=== PATIENT | female | born 1940 | race Caucasian/White ===

== ENCOUNTER → 2016-07-22 | Outpatient (CLI) | payer BC ==
[~2016-07-22] MED LIST: ALPR-412 PO; AMT/25 PO; AMX500 PO; ASPI81TA28 PO; ATOR10TA82 PO; BUTA1CAP17 PO; DICL50TA3 PO; FLUO40CA8 PO; FRS/40 PO; HYDR-5688 PO; KETO10TA PO; LISI-461 PO; OXYC-57 PO; POLY99.02 OP; POTA-327 PO
[2016-07-22 14:45] LABS: BASO % 0.3 %; BASO ABS # 0.03 K/uL (0-0.2); COMPLETE YES; EOS % 0.6 %; IG% 0.5 %; LYMPH % 18.8 %; LYMPH ABS # 1.96 K/uL (1.2-3.4); MEAN CELL VOLUME 92.6 fL (80-100); MEAN CORPUSCULAR HEMOGLOBIN 32.4 pg (25-34); MEAN PLATELET VOLUME 11.1 fL (7.4-10.4); MONO % 9.6 %; NEUT % 70.2 %; PLATELET COUNT 399 K/uL (130-400); RED BLOOD COUNT 4.32 M/uL (4.2-5.4); WHITE BLOOD COUNT 10.42 K/uL (4.8-10.8)
[2016-07-22 14:55] LABS: ALT/SGPT 34 U/L (12-78); BLOOD UREA NITROGEN 20 mg/dl (7-18); BUN/CREATININE RATIO 19.7 (10-20); CALCIUM 9.6 mg/dl (8.5-10.1); CARBON DIOXIDE 21 mmol/L (21-32); CHLORIDE 107 mmol/L (98-107); CREATININE 0.99 mg/dl (0.60-1.20); GLUCOSE 122 mg/dl (70-99); POTASSIUM 3.5 mmol/L (3.5-5.1); SODIUM 138 mmol/L (136-145)
[2016-07-22 14:57] LABS: ALKALINE PHOSPHATASE 80 U/L (45-117); AST/SGOT 17 U/L (15-37)
== END | disposition home or self-care (01) ==
LOC: C.LABSPEC 15:11
PROVIDERS: ATTEND Internal Medicine
DX: B34.9 Viral infection, unspecified (principal); R11.10 Vomiting, unspecified

== ENCOUNTER → 2016-09-02 | Outpatient (CLI) | payer BC ==
[2016-09-02 13:34] LABS: BASO % 0.5 %; BASO ABS # 0.04 K/uL (0-0.2); COMPLETE YES; EOS % 2.2 %; HEMATOCRIT 40.7 % (37-47); IG% 0.5 %; LYMPH % 17.3 %; MEAN CELL VOLUME 97.8 fL (80-100); MEAN CORPUSCULAR HEMOGLOBIN 30.8 pg (25-34); MEAN CORPUSCULAR HGB CONC 31.4 g/dl (32-36); MEAN PLATELET VOLUME 11.9 fL (7.4-10.4); MONO % 10.4 %; NEUT % 69.1 %; PLATELET COUNT 336 K/uL (130-400); RED BLOOD COUNT 4.16 M/uL (4.2-5.4); WHITE BLOOD COUNT 8.07 K/uL (4.8-10.8)
[2016-09-02 13:48] LABS: BLOOD UREA NITROGEN 14 mg/dl (7-18); BUN/CREATININE RATIO 14.7 (10-20); CARBON DIOXIDE 25 mmol/L (21-32); CHLORIDE 106 mmol/L (98-107); CHOLESTEROL 181 mg/dl (0-200); CREATININE 0.92 mg/dl (0.60-1.20); GLUCOSE 102 mg/dl (70-99); POTASSIUM 4.9 mmol/L (3.5-5.1); SODIUM 138 mmol/L (136-145); TRIGLYCERIDES 147 mg/dl (0-150); VERY LOW DENSITY LIPOPROT CALC 29 mg/dl
[2016-09-02 13:56] LABS: ESTIMATED AVERAGE GLUCOSE 123 mg/dl; HA1C FLAG Normal (Normal)
[2016-09-02 13:59] LABS: CHOLESTEROL/HDL RATIO 3.1; HDL CHOLESTEROL 58 mg/dl
== END | disposition home or self-care (01) ==
LOC: C.LABSPEC 12:20
PROVIDERS: ATTEND Internal Medicine
DX: I10 Essential (primary) hypertension (principal); E78.5 Hyperlipidemia, unspecified; R73.9 Hyperglycemia, unspecified; M75.122 Complete rotator cuff tear or rupture of left shoulder, not specified as traumatic

== ENCOUNTER → 2016-09-17 | Day surgery (SDC) | payer BC ==
[2016-09-03 10:13] VITALS: Ht 160 cm; Wt 100.0 kg
--- NOTE | 2016-09-04 09:37 | DIAGNOSTIC IMAGING REPORT ---
CHEST 2 VIEWS ROUTINE CLINICAL HISTORY: Preoperative chest COMPARISON STUDY: 08/02/2014 FINDINGS: The cardiac and sternal contours are normal. There is no focal pulmonary consolidation. There is no failure. There are no pleural effusions. There is a calcified right upper lobe granuloma. There is a prominent left cardiophrenic angle fat pad.[ IMPRESSION: No active disease in the chest. Electronically signed by: Adebayo Blanc M.D. 09/04/2016 9:35 AM Dictated Date/Time: 09/04/2016 9:35 AM
[~2016-09-17] VITALS: Ht 160 cm; Wt 100.0 kg
[~2016-09-17] MED LIST changes: -ALPR-412 PO; -AMT/25 PO; -AMX500 PO; +ATROPINE SULFATE 0.1 MG/ML 5ML SYR IV PRN; +BUPIVACAINE/EPINEPHRINE 0.25% 1:200,000 30 ML VIAL ONE; +CEFAZOLIN 2000 MG/60 ML D5W IV SCH; +EpHEDrine SULFATE INJ 50 MG/ML AMP IV PRN; +EpINEphrine INJ 1MG/ML AMP 1 MG/ML AMP ONE; +FENTANYL CITRATE INJ 50 MCG/1 ML 2 ML VIAL IV PRN; +FENTANYL CITRATE INJ 50 MCG/1 ML 2 ML VIAL ONE; +GLYCOPYRROLATE INJ 0.2 MG/ML VIAL ONE; -HYDR-5688 PO; +HYDROmorphone INJ 1 MG/ML SYR IV PRN; +LACTATED RINGER'S 1000ML 1,000 ML IV SCH; +LIDOCAINE HCL 2% 2 ML VIAL (20MG/ML) ONE; +MIDAZOLAM HCL 1 MG/ML 2ML VIAL ONE; +NEOSTIGMINE METHYLSULFATE 5 MG/5 ML SYR ONE; +ONDANSETRON INJ 2 MG/ML 2 ML VIAL IV PRN; +ONDANSETRON INJ 2 MG/ML 2 ML VIAL ONE; +OXYCODONE/ACETAMINOPHEN 5-325 TAB PO PRN; +PROPOFOL IV EMULSION 10 MG/ML 20 ML VIAL IV ONE; +ROCURONIUM BROMIDE 10 MG/ML 5 ML VIAL ONE; +ROPIVACAINE 0.5% 5 MG/ML 30 ML VIAL ONE; +SODIUM CHLORIDE 0.9% 1000ML 1,000 ML IV SCH
--- NOTE | 2016-09-17 07:55 | History & Physical Bridge - SC ---
H&P Re-Evaluation Bridge Note: I have examined the patient, reviewed the History & Physical and in the interval since the performance of the History & Physical I have noted the following changes of clinical significance: No changes noted
--- NOTE | 2016-09-17 11:46 | [facility] Post Operative Brief Note ---
Immediate Operative Summary Operative Date Sep 17, 2016. Pre-Operative Diagnosis Left Shoulder Full Thickness Rotator Cuff Tear Post-Operative Diagnosis Same Procedure(s) Performed Left Shoulder Arthroscopy, Medium Rotator Cuff Repair, Removal of Loose Body Surgeon Dr. Lund Legal Research Analyst Surgeon(s) Lissa Mckeon PA-C Estimated Blood Loss 5 ml Findings as above Specimens None Complication(s) None Disposition Recovery Room / PACU
--- NOTE | 2016-09-17 11:48 | Discharge Instructions-SurgCtr ---
Discharge Instructions Date of Service Sep 17, 2016. Visit Reason for Visit: Left Shoulder Full Thickness Rotator Cuff Tear Discharge Discharge Diagnosis / Problem: SAME ABOVE Discharge Goals Goal(s): Decrease discomfort, Improve function Medications Stopped Medications Name(s): Voltaran and ASA 81mg stopped 09/08 Restart Stopped Medication(s): MAY RESTART VOLTAREN WHEN DONE WITH TORADOL TAKE TORADOL EVERY 8 HOURS WITH FOOD UNTIL FINISHED AUGUST RESTART ASA 81MG 09/18/2016 Activity Recommendations Activity Limitations: as noted below Lifting Limitations: until after follow-up appointment Exercise/Sports Limitations: until after follow-up appointment Shower/Bathe: tomorrow Anesthesia . Post Anesthesia Instructions: If you have had General Anesthesia or IV Sedation: * Do not drive today. * Resume driving when surgeon permits. * Do not make important decisions or sign legal documents today. * Call surgeon for: 1. Temperature elevations greater than 101 degrees F. 2. Uncontrollable pain. 3. Excessive bleeding. 4. Persistent nausea and vomiting. 5. Medication intolerance (nausea, vomiting or rash). * For nausea and vomiting use only clear liquids such as: tea, soda, bouillon until nausea subsides, then gradually increase diet as tolerated. * If you have any concerns or questions, call your surgeon's office. If physician is unavailable and it is an emergency, call 911 or go to the nearest emergency room. . Instructions / Follow-Up Instructions / Follow-Up MEDICATIONS: * Resume previous medications unless instructed otherwise by your surgeon. * Always take pain medication on a full stomach or with food to avoid upset stomach. * Do not drink alcohol or drive while taking narcotics. * Ibuprofen or Tylenol may be taken if narcotic not needed. SPECIAL CARE INSTRUCTIONS: __ None _X_ Keep extremity elevated and iced x 48 hours; apply ice 20-30 minutes 8-10 times/day. May remove at night. __ Sling __24 hrs/day __ Remove at night _X_ Shoulder Immobilizer (MAY REMOVE AFTER 48 HOURS ONLY TO SHOWER AND FOR THERAPY) _X_ 24 hrs/day __ Remove at night _X_ Dressing __ Maintain until seen in office, may shower with plastic over site _X_ Remove dressings in 24-48 hours and then may shower _X_ Cover incisions with band-aids after showering __ Do not remove steri-strips Call physician if chills or temperature rises above 102 degrees or pain unrelieved by prescribed pain medications at . . Diet Recommendations Home Diet: no limitations Fluid Restriction: None Procedures Procedures Performed: Left Shoulder Arthroscopy, Medium Rotator Cuff Repair, Removal of Loose Body Pending Studies Studies pending at discharge: no Work Instructions Return To Work: after follow-up Lifting Limitations: NO LIFTING WITH LEFT ARM Medical Emergencies . Who to Call and When: Medical Emergencies: If at any time you feel your situation is an emergency, please call 911 immediately. . Non-Emergent Contact Non-Emergency issues call your: Primary Care Provider Call Non-Emergent contact if: you have a fever, temperature is above 101.5 . . "Provider Documentation" section prepared by Joseph Mckeon. .
[2016-09-17 11:58] VITALS: TEMP 36.6
--- NOTE | 2016-09-17 12:04 | OPERATIVE REPORT ---
DATE OF OPERATION: 09/17/2016 PREOPERATIVE DIAGNOSES: Severe external impingement, biceps tendinopathy and medium sized rotator cuff tear of the left shoulder with moderate glenohumeral arthritis and a very large loose body in the subcoracoid space. POSTOPERATIVE DIAGNOSIS: Same. PROCEDURE: Left shoulder diagnostic arthroscopy with removal of a large 30 mm x 15 mm loose body, extensive debridement, acromioplasty, medium sized degenerative rotator cuff repair and arthroscopic biceps tenodesis. SURGEON: Dr. Jcarlos Lund. STERILIZATION TECH: Logan Mckeon PA-C, whose assistance was necessary for positioning the arm and helping with instrumentation. ANESTHESIA: General with a left interscalene nerve block. COMPLICATIONS: None. CONDITION: Stable to PACU. INDICATIONS: Garrick is a pleasant 75-year-old female who has been complaining of chronic left shoulder pain. MRI and clinical examination were diagnostic for severe external impingement and a medium size cuff tear with some arthritis and a large loose body. After failing conservative treatment, she elected to undergo arthroscopy. DESCRIPTION OF PROCEDURE: On 09/17/2016, she arrived at [facility] for the above procedure. She was seen in the preoperative holding area and the operative extremity was identified and signed. She was given a preoperative antibiotic and a left interscalene nerve block. She was taken back to the operating room, laid on the table in supine position and put under general anesthesia. She was then put into the beachchair position. The left shoulder was prepped and draped in sterile fashion. Time-out was done and the patient and operative extremity was properly identified. A scope was introduced in the posterior portal. Diagnostic arthroscopy showed some grade 2 chondral changes within the glenoid and some grade 3 chondral changes on the humeral head. The biceps tendon was slightly frayed at the tristen. There was a tear of the entire supraspinatus, and infraspinatus, teres minor, and subscapularis were intact. An anterior portal was made, a shaver was used to do a debridement of the intraarticular structures and do a chondroplasty both the humeral head and the glenoid. The rotator interval was then opened up to the subcoracoid space and there was a large loose body identified. A large grasper was used to remove the loose body. It measured to be a 30 mm x 15 mm. The scope was then put into the subacromial space. A lateral portal was made. A shaver was used to do a complete subacromial and subdeltoid bursectomy. An ablator was used to tease the coracoacromial ligament off the undersurface of the acromion and a 5-0 austin was used to complete an acromioplasty of a very large Bigliani type 3 acromion. A shaver was used to remove any excess debris and attention was turned to the rotator cuff. It was a medium size cuff tear. An additional anterolateral portal was made and Arabella cannulas were placed in each of the lateral portals. The tuberosity was prepared with a ring curette and a microfracture. The rotator cuff was then fixed with an Arthrex SpeedBridge configuration using BioComposite SwiveLock suture anchors. This gave a nice knotless SpeedBridge repair. A single FiberLink was placed around the biceps tendon and it was tenodesed to the anterior lateral anchor. This gave an arthroscopic biceps tenodesis. Multiple pictures were taken of the final repair. The scope was placed back into the glenohumeral joint and the biceps tendon was arthroscopically tenotomized. The articular surface of the rotator cuff was examined and it was restored. Any additional debris was removed. The arthroscopic instruments were removed from the shoulder. Portal sites were closed with 3-0 nylon. She was then placed in a soft dressing and an abduction arm sling. She was then extubated, transferred to a litter and taken to the postanesthesia care unit in stable condition. She tolerated the procedure well. I attest to the content of the Intraoperative Record and any orders documented therein. Any exception s are noted below.
[2016-09-17 12:28] VITALS: BP 120/79; PULSE 82; O2SAT 95
--- NOTE | 2016-09-17 12:35 | Anesthesiology Progress Note ---
Anesthesia Post Op Note Date & Time Sep 17, 2016 at 12:35 Vital Signs Pain Intensity: 0 Vital Signs Past 12 Hours Date Time Temp Pulse Resp B/P (MAP) Pulse Ox O2 Delivery O2 Flow Rate FiO2 09/17/16 12:28 82 18 120/79 (93) 93 Room Air 09/17/16 11:58 36.6 18 126/69 (88) 92 Room Air 09/17/16 11:51 36.4 09/17/16 11:48 80 17 09/17/16 11:48 81 17 98 09/17/16 11:48 Room Air 09/17/16 11:47 133/73 (79) 09/17/16 11:43 82 14 09/17/16 11:43 82 14 90 09/17/16 11:41 140/85 (105) 09/17/16 11:38 84 16 09/17/16 11:38 84 16 98 09/17/16 11:36 137/74 (77) 09/17/16 11:33 81 19 99 09/17/16 11:33 81 19 09/17/16 11:32 132/87 (107) 09/17/16 11:28 85 20 09/17/16 11:28 85 20 99 09/17/16 11:27 149/71 (100) 09/17/16 11:23 88 20 09/17/16 11:23 20 09/17/16 11:22 144/70 (75) 09/17/16 11:20 155/72 (79) 09/17/16 11:18 36.4 90 16 155/72 98 Diffusion Mask 5 09/17/16 09:37 78 27 09/17/16 09:37 78 27 99 09/17/16 09:36 129/86 09/17/16 09:35 77 23 09/17/16 09:35 77 23 99 09/17/16 09:31 135/84 09/17/16 09:30 80 24 09/17/16 09:30 81 24 99 09/17/16 09:25 75 92 09/17/16 09:25 75 09/17/16 08:21 36.5 85 20 126/75 (92) 96 Room Air Notes Mental Status: alert / awake / arousable, participated in evaluation Pt Amnestic to Procedure: Yes Nausea / Vomiting: adequately controlled Pain: adequately controlled Airway Patency, RR, SpO2: stable & adequate BP & HR: stable & adequate Hydration State: stable & adequate Anesthetic Complications: no major complications apparent
== END | disposition home or self-care (01) ==
LOC: X.SURG 08:00
PROVIDERS: ATTEND Orthopaedic Surgery
DX: M25.812 Other specified joint disorders, left shoulder (principal); M75.102 Unspecified rotator cuff tear or rupture of left shoulder, not specified as traumatic; M19.012 Primary osteoarthritis, left shoulder; E78.00 Pure hypercholesterolemia, unspecified; Z79.899 Other long term (current) drug therapy

== ENCOUNTER → 2017-01-26 | Outpatient (CLI) | payer BC ==
[~2017-01-26] MED LIST changes: -ATOR10TA82 PO; +ATOR10TA88 PO; -ATROPINE SULFATE 0.1 MG/ML 5ML SYR IV PRN; -BUPIVACAINE/EPINEPHRINE 0.25% 1:200,000 30 ML VIAL ONE; -CEFAZOLIN 2000 MG/60 ML D5W IV SCH; -EpHEDrine SULFATE INJ 50 MG/ML AMP IV PRN; -EpINEphrine INJ 1MG/ML AMP 1 MG/ML AMP ONE; -FENTANYL CITRATE INJ 50 MCG/1 ML 2 ML VIAL IV PRN; -FENTANYL CITRATE INJ 50 MCG/1 ML 2 ML VIAL ONE; -GLYCOPYRROLATE INJ 0.2 MG/ML VIAL ONE; -HYDROmorphone INJ 1 MG/ML SYR IV PRN; -LACTATED RINGER'S 1000ML 1,000 ML IV SCH; -LIDOCAINE HCL 2% 2 ML VIAL (20MG/ML) ONE; -MIDAZOLAM HCL 1 MG/ML 2ML VIAL ONE; -NEOSTIGMINE METHYLSULFATE 5 MG/5 ML SYR ONE; -ONDANSETRON INJ 2 MG/ML 2 ML VIAL IV PRN; -ONDANSETRON INJ 2 MG/ML 2 ML VIAL ONE; -OXYCODONE/ACETAMINOPHEN 5-325 TAB PO PRN; -PROPOFOL IV EMULSION 10 MG/ML 20 ML VIAL IV ONE; -ROCURONIUM BROMIDE 10 MG/ML 5 ML VIAL ONE; -ROPIVACAINE 0.5% 5 MG/ML 30 ML VIAL ONE; -SODIUM CHLORIDE 0.9% 1000ML 1,000 ML IV SCH
--- NOTE | 2017-01-26 14:23 | MAMMOGRAPHY REPORT ---
BILATERAL DIGITAL SCREENING MAMMOGRAM WITH CAD: 01/26/2017 CLINICAL HISTORY: Routine screening. TECHNIQUE: Bilateral CC, MLO and XCCL views were obtained. Current study was also evaluated with a Computer Aided Detection (CAD) system. COMPARISON: Comparison is made to exams dated: 01/23/2016 mammogram, 01/21/2015 mammogram, 01/19/2014 m ammogram, 01/18/2013 mammogram, 01/14/2012 mammogram, and 01/12/2011 mammogram - [facility] enter. BREAST COMPOSITION: There are scattered areas of fibroglandular density in both breasts. FINDINGS: There are scattered bilateral benign rim calcifications and mild vascular calcifications in the breasts. No new suspicious mass, architectural distortion or cluster of microcalcifications is seen. IMPRESSION: ACR BI-RADS CATEGORY 1: NEGATIVE There is no mammographic evidence of malignancy. A 1 year screening mammogram is recommended. The pa tient will receive written notification of the results. Approximately 10% of breast cancers are not detected with mammography. A negative mammographic report should not delay biopsy if a clinically suggestive mass is present. Jeanie Romero M.D. ay/:01/26/2017 09:01:38 Glassie: Nu SILVA(Chely)(M), [facility] letter sent: Normal 1/2 BI-RADS Code: ACR BI-RADS Category 1: Negative
== END | disposition home or self-care (01) ==
LOC: C.MAMM 08:37
PROVIDERS: ATTEND Internal Medicine
DX: Z12.31 Encounter for screening mammogram for malignant neoplasm of breast (principal)

== ENCOUNTER → 2017-02-26 | Outpatient (CLI) | payer BC ==
[~2017-02-26] MED LIST changes: +ATOR10TA82 PO; -ATOR10TA88 PO
[2017-02-26 14:10] LABS: BLOOD UREA NITROGEN 12 mg/dl (7-18); BUN/CREATININE RATIO 12.2 (10-20); CALCIUM 9.7 mg/dl (8.5-10.1); CARBON DIOXIDE 27 mmol/L (21-32); CHLORIDE 105 mmol/L (98-107); CHOLESTEROL 167 mg/dl (0-200); CREATININE 0.96 mg/dl (0.60-1.20); GLUCOSE 104 mg/dl (70-99); POTASSIUM 4.3 mmol/L (3.5-5.1); SODIUM 137 mmol/L (136-145)
[2017-02-26 14:13] LABS: CHOLESTEROL/HDL RATIO 2.7; HDL CHOLESTEROL 61 mg/dl; TRIGLYCERIDES 151 mg/dl (0-150); VERY LOW DENSITY LIPOPROT CALC 30 mg/dl
[2017-02-26 14:29] LABS: ESTIMATED AVERAGE GLUCOSE 120 mg/dl; HA1C FLAG Normal (Normal)
== END | disposition home or self-care (01) ==
LOC: C.LABSPEC 12:41
PROVIDERS: ATTEND Internal Medicine
DX: Z00.00 Encounter for general adult medical examination without abnormal findings (principal); R73.9 Hyperglycemia, unspecified; E78.5 Hyperlipidemia, unspecified; I10 Essential (primary) hypertension

== ENCOUNTER → 2017-03-05 | Outpatient (CLI) | payer BC | LOC: C.LABSPEC 15:31 | PROVIDERS: ATTEND Internal Medicine | DX: Z12.11 Encounter for screening for malignant neoplasm of colon (principal) ==

== ENCOUNTER → 2017-08-27 | Outpatient (CLI) | payer BC ==
[~2017-08-27] MED LIST changes: -KETO10TA PO; -OXYC-57 PO
[2017-08-27 13:04] LABS: HEMOGLOBIN A1C 5.8 % (4.5-5.6)
[2017-08-27 13:21] LABS: BLOOD UREA NITROGEN 12 mg/dl (7-18); CALCIUM 9.1 mg/dl (8.5-10.1); CARBON DIOXIDE 25 mmol/L (21-32); CREATININE 0.99 mg/dl (0.60-1.20); GLUCOSE 95 mg/dl (70-99); POTASSIUM 3.9 mmol/L (3.5-5.1); SODIUM 138 mmol/L (136-145)
[2017-08-27 13:23] LABS: CHOLESTEROL 161 mg/dl (0-200); LDL CHOLESTEROL (DIRECT) 88 mg/dl
== END | disposition home or self-care (01) ==
LOC: C.LABSPEC 12:24
PROVIDERS: ATTEND Internal Medicine
DX: I10 Essential (primary) hypertension (principal); E78.5 Hyperlipidemia, unspecified; E11.65 Type 2 diabetes mellitus with hyperglycemia

== ENCOUNTER 2023-06-28 08:32 | Inpatient (IN) ==
[2023-06-28 09:02] LABS: Basophils # (auto) 0.05 K/uL (0.00-0.20); Basophils % (auto) 0.5 %; Eosinophils # (auto) 0.24 K/uL (0.00-0.50); Eosinophils % (auto) 2.5 %; Hemoglobin 11.5 g/dl (12.0-16.0); Immature Granulocytes # (auto) 0.05 K/uL (0.01-0.20); Immature Granulocytes % (auto) 0.5 %; Lymphocytes # (auto) 1.71 K/uL (1.20-3.40); Lymphocytes % (auto) 17.7 %; Mean Corpuscular Hemoglobin 29.9 pg (25.0-34.0); Mean Corpuscular Hgb Conc 32.9 g/dL (32.0-36.0); Mean Corpuscular Volume 90.9 fL (80.0-100.0); Mean Platelet Volume 11.9 fL (9.4-12.4); Monocytes % (auto) 11.4 %; Neutrophils # (auto) 6.49 K/uL (1.40-6.50); Neutrophils % (auto) 67.4 %; Platelet Count 290 K/uL (130-400); RDW Coefficient of Variation 13.4 % (11.5-14.5); RDW Standard Deviation 44.7 fL (36.4-46.3); Red Blood Count 3.85 M/uL (4.20-5.40); White Blood Count 9.64 K/ul (4.8-10.8)
[2023-06-28 09:17] LABS: Albumin Globulin Ratio 1.4 (0.9-2); Albumin Level 4.2 gm/dl (3.4-5.0); BUN Creatinine Ratio 22.1 (10-20); Bilirubin,Total 0.3 mg/dl (0.2-1.0); Calcium 9.9 mg/dl (8.6-10.3); Creatinine Clr Calc Pharmacy 45.1 ml/min; Est GFR (African American) 57.5 ml/min; Est GFR (Non-African American) 49.6 ml/min; Potassium 4.2 mmol/L (3.5-5.1); Total Protein 7.2 gm/dl (6.0-8.3)
[2023-06-28] MEDS: OPTIRAY 320 100ml IV ONE (09:56)
--- NOTE | 2023-06-28 10:07 | Emergency Department Note ---
Impression & Plan Acute lower GI bleeding, Diverticulitis ED Provider Note NAME: DEE WANG AGE: 82 SEX: Female INFORMANT: Patient ED PROVIDER(S): Jamar Mccullough MD CHIEF COMPLAINT: Rectal bleeding PLAN: Disposition: Admitted Outpatient prescription management: none Referral: None MEDICAL DECISION MAKING: Patient presented with acute rectal bleeding. He had a benign abdominal examination. He is mildly tachycardic. Rectal examination was grossly positive for blood and Hemoccult positive as well. IV was established. Blood work obtained. CT imaging ordered. Patient is doing well on reassessment. She does have a drop of 1 g on her hemoglobin. Patient's chemistry panel was unremarkable. Her CT imaging does show mild diverticulitis as well as diverticulosis. Discussed with ED pharmacist. Patient given IV Rocephin and Flagyl. Discussed treatment options and given the situation the patient would be best served by admission. Patient and family in agreement. Consultation was [facility] with [facility] Patient was evaluated in the ER and admitted for further management. Care/management discussed with: none Level of care consideration(s): After review of the information above and other included data, I feel the patient requires escalation of care to admission Triage Nursing notes: reviewed and agree them. Vital Signs: reviewed and remarkable for mild tachycardia Additional History obtained from: none Chronic Medical/Social Conditions affecting care: none Prior/ Outside/ External records reviewed: none Differential Diagnosis: Diverticulosis, AVM, coagulopathy, colitis, inflammatory bowel disease, malignancy, Elizabeth-Vuong tear, esophagitis, peptic ulcer disease, variceal bleed, gastritis, epistaxis, fissure, hemorrhoids, as well as other pathologies. Diagnostics, independently interpreted by me: ECG: Twelve-lead EKG reveals sinus tachycardia at 104 bpm. Low voltage QRS. Nonspecific ST wave abnormality. No ST elevation. Cardiac Monitoring: Cardiac monitoring ordered by me: The patient was placed on continuous cardiac monitoring and observed. It revealed a normal sinus rhythm at 98 beats per minute without ectopy or evidence of dysrhythmia. Medical decision rules: none Imaging studies: HPI: 82 year old Female arrives for evaluation of rectal bleeding. This started this and is a first-time episode. The patient also notes the following associated symptoms, none. The patient has taken no medication relieving factors. Current pain is rated as 0/10. No history of GI bleeding. Patient denies any rectal pain or discomfort. No recent travel or any unusual foods. Patient is on any blood thinners. Pt denies LOC, headache, fevers, chills, diaphoresis, visual changes, neck pain, chest pain, breathing difficulties, nausea, vomiting, abdominal pain, back pain, melena, urinary symptoms, numbness, weakness, lymphadenopathy, rash, or other complaints. . PAST MEDICAL HISTORY: See Below, interstitial lung disease PAST SURGICAL HISTORY: See Below, SOCIAL HISTORY: See Below, retired HOME MEDICATIONS: See Below ALLERGIES: See Below VITALS: See Below PHYSICAL EXAMINATION: GENERAL: Awake, alert, anxious-appearing, in no distress HENT: Normocephalic, atraumatic. Oropharynx unremarkable. EYES: Normal conjunctiva. Sclera non-icteric. NECK: Inspection normal. Non-tender. Supple. No nuchal rigidity. FROM. No masses. RESPIRATORY: Clear to auscultation. No wheezes. No rales. Normal respiratory effort. CARDIAC: Borderline tachycardic rate. Normal rhythm. No murmurs. No rubs. Extremities warm and well perfused. Pulses equal. No JVD. GI: Soft, non-distended. No tenderness to palpation. No rebound or guarding. No masses. RECTAL: Gross blood. No tenderness or signs of infection. Hemoccult positive. MUSCULOSKELETAL: Atraumatic. Chest examination reveals no tenderness. The back is symmetrical on inspection without obvious abnormality. There is no CVA tenderness to palpation. No joint edema. LOWER EXTREMITIES: Calves are equal size bilaterally and non-tender. No edema. No discoloration. NEURO: Normal sensorium. No sensory or motor deficits noted. SKIN: No rash or jaundice noted. PROCEDURES: none CRITICAL CARE: none OBSERVATION NOTE: none Past Med/Surg History Medical History (Updated 06/28/23 @ 16:30 by Jamar Mccullough MD) GERD (gastroesophageal reflux disease) Uterine fibroid Depression Migraine Hypertension Hyperlipidemia Spastic esophagus Surgical History S/P dilatation of esophageal stricture History of hysterectomy History of bilateral tubal ligation History of esophagogastroduodenoscopy (EGD) History of colonoscopy History of tooth extraction Hx of eye surgery RT EYE LASER History of cataract surgery RT/LEFT Bone spur RT/LEFT History of repair of rotator cuff LEFT History of carpal tunnel release RT History of total knee replacement RT History of arthroscopy RT History of total abdominal hysterectomy and bilateral salpingo-oophorectomy Family History Other Hypertension Denies family history of Tuberculosis Heart disease Allergies Emphysema of lung Lung disease Cancer Asthma Social History (Updated 03/26/23 @ 14:58 by Sheri Barraza LPN) Smoking Status: Former smoker Tobacco Type: Cigarettes Cigarettes Per Day: QUIT OVER 20 YEARS AGO; Smoking End Date: 1997; Second Hand Exposure: No; Do You Dip or Chew Tobacco: No; Hx Alcohol Use: No Hx Substance Use: No Preferred Language: Tanzanian Communication Ability: Effective Visual Impairment: No Limitations Beef Farmer Required: No Beliefs That Will Affect Care: None marital status: Current Living Situation: Spouse current occupational status: retired Other Information That Helps Us Care for You: No Feels Safe at Home: Yes Safety Concerns: Feels Safe At This Time Diet: low carbohydrate caffeine: Yes Dental Care, Regularly: No Physical Activity Frequency: Does not Exercise Seatbelt Use: always Assistive Devices: Denture - Upper and Denture - Lower Allergies Allergies Allergy/AdvReac Type Severity Reaction Status Date / Time tiotropium Allergy Severe Spirivia Unverified 06/28/23 11:04 [From Spiriva with Respimat, HandiHaler] pt hasn't had the handihaler metoclopramide Allergy Intermediate COULDN'T Verified 06/28/23 11:04 EAT PLASTIC AdvReac Mild IRRITATION Uncoded 06/28/23 11:04 ON CONTACT WITH OXYGEN APPLIED ON NOSE Spiriva AdvReac Itching Uncoded 06/17/23 09:13 Home Meds Home Medications Medication Instructions Recorded Confirmed aspirin 81 mg tablet,delayed 81 mg PO HS 02/16/18 06/28/23 release (Aspir-) omeprazole 20 mg capsule,delayed 20 mg PO QAM 06/28/23 06/28/23 release Previous Rx's Medication Instructions Recorded diclofenac potassium 50 mg tablet 50 mg PO BID #180 tabs 08/21/22 potassium chloride 10 mEq 10 meq PO BID #180 tabs 09/30/22 tablet,extended release atorvastatin 10 mg tablet 10 mg PO QPM #90 tabs 02/03/23 fluoxetine 40 mg capsule (Prozac) 40 mg PO QAM #90 caps 02/03/23 furosemide 40 mg tablet (Lasix) 40 mg PO QAM #90 tabs 02/03/23 lisinopril 10 mg tablet 10 mg PO QPM #90 tabs 02/03/23 albuterol sulfate 90 mcg/actuation 2 puff inhalation Q6H PRN 05/18/23 aerosol inhaler shortness of breath or wheezing #8.5 grams Results & Data (ED) Vital Signs Vital Signs - 24 hr 06/28/23 08:40 06/28/23 08:40 06/28/23 08:41 Temperature 36.8 C Temperature Source Oral Pulse Rate 110 H 107 H 107 H Pulse Rate from SpO2 Sensor 106 H Respiratory Rate 14 20 Blood Pressure 155/91 H Blood Pressure Mean 112 Pulse Oximetry 93 94 Oxygen Delivery Method Room Air Room Air Sepsis New/Unexplained Change in Mental Status No Sepsis Action Taken by Nursing No Action Required 06/28/23 08:43 06/28/23 09:00 06/28/23 09:00 Temperature Temperature Source Pulse Rate 102 H Pulse Rate from SpO2 Sensor 102 H Respiratory Rate 23 Blood Pressure 150/80 H Blood Pressure Mean 118 Pulse Oximetry 94 Oxygen Delivery Method Room Air Room Air Sepsis New/Unexplained Change in Mental Status Sepsis Action Taken by Nursing 06/28/23 09:30 06/28/23 10:00 06/28/23 10:03 Temperature Temperature Source Pulse Rate 102 H 105 H Pulse Rate from SpO2 Sensor 102 H Respiratory Rate 19 16 Blood Pressure 138/72 Blood Pressure Mean 102 Pulse Oximetry 95 Oxygen Delivery Method Room Air Sepsis New/Unexplained Change in Mental Status Sepsis Action Taken by Nursing 06/28/23 10:03 06/28/23 10:30 06/28/23 11:00 Temperature Temperature Source Pulse Rate 102 H 104 H Pulse Rate from SpO2 Sensor 101 H 103 H Respiratory Rate 14 26 H Blood Pressure 104/76 Blood Pressure Mean 85 Pulse Oximetry 91 92 Oxygen Delivery Method Sepsis New/Unexplained Change in Mental Status Sepsis Action Taken by Nursing 06/28/23 11:00 06/28/23 11:13 06/28/23 11:13 Temperature Temperature Source Pulse Rate 102 H 107 H Pulse Rate from SpO2 Sensor 101 H 107 H Respiratory Rate 19 16 Blood Pressure 136/86 Blood Pressure Mean 116 Pulse Oximetry 95 96 Oxygen Delivery Method Room Air Sepsis New/Unexplained Change in Mental Status Sepsis Action Taken by Nursing 06/28/23 11:30 Temperature Temperature Source Pulse Rate 100 H Pulse Rate from SpO2 Sensor 100 H Respiratory Rate 19 Blood Pressure Blood Pressure Mean Pulse Oximetry 94 Oxygen Delivery Method Sepsis New/Unexplained Change in Mental Status Sepsis Action Taken by Nursing Laboratory Data 06/28/23 12:21 06/28/23 08:14 Lab Results 06/28/23 06/28/23 06/28/23 Range/Units 08:14 08:40 08:54 WBC 9.64 (4.8-10.8) K/ul RBC 3.85 L (4.20-5.40) M/uL Hgb 11.5 L (12.0-16.0) g/dl Hct 35.0 L (37.0-47.0) % MCV 90.9 (80.0-100.0) fL MCH 29.9 (25.0-34.0) pg MCHC 32.9 (32.0-36.0) g/dL RDW Std Deviation 44.7 (36.4-46.3) fL RDW Coeff of Binh 13.4 (11.5-14.5) % Plt Count 290 (130-400) K/uL MPV 11.9 (9.4-12.4) fL Immature Gran % (Auto) 0.5 % Neut % (Auto) 67.4 % Lymph % (Auto) 17.7 % Evangeline % (Auto) 11.4 % Eos % (Auto) 2.5 % Baso % (Auto) 0.5 % Neut # (Auto) 6.49 (1.40-6.50) K/uL Lymph # (Auto) 1.71 (1.20-3.40) K/uL Evangeline # (Auto) 1.10 H (0.11-0.59) K/uL Eos # (Auto) 0.24 (0.00-0.50) K/uL Baso # (Auto) 0.05 (0.00-0.20) K/uL Immature Gran # (Auto) 0.05 (0.01-0.20) K/uL PT Cancelled INR Cancelled APTT Cancelled PTT Ratio Cancelled Sodium 137 (136-145) mmol/L Potassium 4.2 (3.5-5.1) mmol/L Chloride 106 (98-107) mmol/L Carbon Dioxide 24 (21-32) mmol/L Anion Gap 7 (3-11) BUN 23 (6-23) mg/dl Creatinine 1.04 (0.6-1.2) mg/dl Est Cr Clr Drug Dosing 45.1 ml/min Est GFR ( Amer) 57.5 ml/min Est GFR (Non-Af Amer) 49.6 ml/min BUN/Creatinine Ratio 22.1 H (10-20) Glucose 113 H (70-99(Fasting)) mg/dl Calcium 9.9 (8.6-10.3) mg/dl Total Bilirubin 0.3 (0.2-1.0) mg/dl AST 15 (13-39) U/L ALT 15 (7-52) U/L Alkaline Phosphatase 78 (34-104) U/L Total Protein 7.2 (6.0-8.3) gm/dl Albumin 4.2 (3.4-5.0) gm/dl Globulin 3.0 (2.5-4.0) gm/dl Albumin/Globulin Ratio 1.4 (0.9-2) POC Stool Occult Blood (Negative) Blood Type O Positive Antibody Screen NEGATIVE 06/28/23 06/28/23 Range/Units 09:34 09:41 WBC (4.8-10.8) K/ul RBC (4.20-5.40) M/uL Hgb (12.0-16.0) g/dl Hct (37.0-47.0) % MCV (80.0-100.0) fL MCH (25.0-34.0) pg MCHC (32.0-36.0) g/dL RDW Std Deviation (36.4-46.3) fL RDW Coeff of Binh (11.5-14.5) % Plt Count (130-400) K/uL MPV (9.4-12.4) fL Immature Gran % (Auto) % Neut % (Auto) % Lymph % (Auto) % Evangeline % (Auto) % Eos % (Auto) % Baso % (Auto) % Neut # (Auto) (1.40-6.50) K/uL Lymph # (Auto) (1.20-3.40) K/uL Evangeline # (Auto) (0.11-0.59) K/uL Eos # (Auto) (0.00-0.50) K/uL Baso # (Auto) (0.00-0.20) K/uL Immature Gran # (Auto) (0.01-0.20) K/uL PT 10.8 INR 1.0 APTT 27 PTT Ratio 1.0 Sodium (136-145) mmol/L Potassium (3.5-5.1) mmol/L Chloride (98-107) mmol/L Carbon Dioxide (21-32) mmol/L Anion Gap (3-11) BUN (6-23) mg/dl Creatinine (0.6-1.2) mg/dl Est Cr Clr Drug Dosing ml/min Est GFR ( Amer) ml/min Est GFR (Non-Af Amer) ml/min BUN/Creatinine Ratio (10-20) Glucose (70-99(Fasting)) mg/dl Calcium (8.6-10.3) mg/dl Total Bilirubin (0.2-1.0) mg/dl AST (13-39) U/L ALT (7-52) U/L Alkaline Phosphatase (34-104) U/L Total Protein (6.0-8.3) gm/dl Albumin (3.4-5.0) gm/dl Globulin (2.5-4.0) gm/dl Albumin/Globulin Ratio (0.9-2) POC Stool Occult Blood Positive A (Negative) Blood Type Antibody Screen Administered Medications Parenteral Electrolytes (Plasma-Lyte A Ph 7.4) 1,000 mls @ 125 mls/hr IV .Q8H [facility] Stop: 06/29/23 20:14 Last Admin: 06/28/23 13:11 Dose: 125 mls/hr Documented By: JAZZMINE Discontinued Medications Ceftriaxone Sodium (Rocephin) 2,000 mg in 50 mls @ 100 mls/hr IV NOW STA Stop: 06/28/23 11:45 Last Infusion: 06/28/23 12:08 Dose: Infused Documented By: Admin: 06/28/23 11:38 Dose: 100 mls/hr Documented By: TAVO Metronidazole (Flagyl) 500 mg in 100 mls @ 100 mls/hr IV NOW STA; Protocol Stop: 06/28/23 12:15 Last Infusion: 06/28/23 12:38 Dose: Infused Documented By: Admin: 06/28/23 11:38 Dose: 100 mls/hr Documented By: TAVO Ioversol (Optiray 320 100ml) 94 ml IV ONCE ONE Stop: 06/28/23 10:01 Last Admin: 06/28/23 09:56 Dose: 94 ml Documented By: BRBart Imaging Data Radiologist's Impression: Abdomen/Pelvis CT 06/28/23 09:[address] WITH IV CONTRAST CT DOSE: 1380.75 mGy.cm HISTORY: Acute lower abdominal pain with GI bleed acute lower gi bleeding TECHNIQUE: Multiaxial CT images of the abdomen and pelvis were performed following the IV administration of 94 cc of Optiray, A dose lowering technique was utilized adhering to the principles of ALARA. COMPARISON STUDY: 11/02/2007 FINDINGS: Mild cardiomegaly with mitral annular and coronary artery calcifications. Bibasilar atelectasis versus scarring. No free air. Calcified granulomata of the spleen. Unremarkable pancreas and adrenal glands. Hyperdense foci within the gallbladder neck suggestive of cholelithiasis. No CT evidence of acute cholecystitis. Unremarkable liver. Patency of the hepatic and portal veins. Possible punctate calculi of the kidneys. No ureteral calculi or hydronephrosis. Exophytic hypodense 2.2 cm lesion of the interpolar right kidney with Hounsfield unit of 15 suggestive of a probable cyst. Partial distention of the urinary bladder. Hysterectomy. Atherosclerosis of the aorta and branch vessels. No lymphadenopathy. Nonspecific mild inflammatory stranding within the mesenteric root is similar to prior suggestive of a chronic mesentery does. Mild nonspecific distal esophageal wall thickening. Colonic diverticulosis. Minimal adjacent inflammatory stranding adjacent to the proximal sigmoid. No fluid collections. Normal appendix. Unremarkable soft tissues. Degenerative changes of the spine, pelvis and hips. IMPRESSION: 1. Colonic diverticulosis with findings suspicious for mild acute sigmoid diverticulitis. 2. No bowel obstruction, pneumoperitoneum or fluid collection. 3. Cholelithiasis. 4. Additional findings as above. ACT 112: Negative or not required by law. The above report was generated using voice recognition software. It may contain grammatical, syntax or spelling errors. Electronically signed by: Chi Schwartz M.D. 06/28/2023 10:37 AM Discharge Plan Visit Data Chief Complaint: Rectal Bleed ED Provider: Jamar Mccullough Discharge Problem: Acute lower GI bleeding, Diverticulitis Patient Disposition: Admitted As Inpatient Discharge Instructions Interventions: ED Discharge Assessment Last Done: 06/28/23 13:33
[2023-06-28 10:30] LABS: Partial Thromboplastin Time 27 Seconds (21-31); Prothrombin Time 10.8 Seconds (9.0-12.0)
--- NOTE | 2023-06-28 10:39 | CT Scan Report ---
ABDOMEN AND PELVIS CT WITH IV CONTRAST CT DOSE: 1380.75 mGy.cm HISTORY: Acute lower abdominal pain with GI bleed acute lower gi bleeding TECHNIQUE: Multiaxial CT images of the abdomen and pelvis were performed following the IV administrat ion of 94 cc of Optiray, A dose lowering technique was utilized adhering to the principles of ALARA. COMPARISON STUDY: 11/02/2007 FINDINGS: Mild cardiomegaly with mitral annular and coronary artery calcifications. Bibasilar atelect asis versus scarring. No free air. Calcified granulomata of the spleen. Unremarkable pancreas and adr enal glands. Hyperdense foci within the gallbladder neck suggestive of cholelithiasis. No CT evidence of acute cholecystitis. Unremarkable liver. Patency of the hepatic and portal veins. Possible punctate calculi of the kidneys. No ureteral calculi or hydronephrosis. Exophytic hypodense 2.2 cm lesion of the interpolar right kidney with Hounsfield unit of 15 suggestive of a probable cyst . Partial distention of the urinary bladder. Hysterectomy. Atherosclerosis of the aorta and branch ve ssels. No lymphadenopathy. Nonspecific mild inflammatory stranding within the mesenteric root is similar to prior suggestive of a chronic mesentery does. Mild nonspecific distal esophageal wall thickening. Colonic diverticulosis. Minimal adjacent inflammatory stranding adjacent to the proximal sigmoid. No fluid collections. Norm al appendix. Unremarkable soft tissues. Degenerative changes of the spine, pelvis and hips. IMPRESSION: 1. Colonic diverticulosis with findings suspicious for mild acute sigmoid diverticulitis. 2. No bowel obstruction, pneumoperitoneum or fluid collection. 3. Cholelithiasis. 4. Additional findings as above. ACT 112: Negative or not required by law. The above report was generated using voice recognition software. It may contain grammatical, syntax o r spelling errors. Electronically signed by: Chi Schwartz M.D. 06/28/2023 10:37 AM
--- NOTE | 2023-06-28 11:32 | History & Physical Report ---
Date of Service June 28, 2023 Assessment & Plan (1) Sigmoid diverticulitis: Plan: BRB in rectum x 1 episode on 06/27 Hemoccult + on arrival No leukocytosis; afebrile No hx of diverticulitis or GI issues, per patient Hgb 11.5 and HCT 35.0 Trend H&H q4h x 4 Blood informed consent obtained, however will hold off on ordering pRBCs at this time Patient notes she does have a history of a blood transfusion in 1984 after her hysterectomy Patient is unsure when her last colonoscopy was, but believes it was in her 60s (~20y ago) A/P CT on arrival showed findings suspicious for mild acute sigmoid diverticulitis; also, did note mild nonspecific distal wall thickening BUN/creatinine ratio is mildly elevated at 22.1, clinically low suspicion for upper GI bleed Keep n.p.o. for now IVF resuscitation with Plasma-Lyte at 125mL/hr x 4 Rocephin q24h and metronidazole q8h Hold aspirin the evening of 06/27 and restart pending labs Hold diclofenac potassium tablets Acetaminophen as needed for pain control; patient denies any pain at time of admission Gastroenterology consulted A.m. CBC, BMP, Mag (2) GERD (gastroesophageal reflux disease): Plan: Omeprazole --> Protonix 20mg IV QAM (3) Depression: Plan: Continue fluoxetine (4) HLD (hyperlipidemia): Plan: Continue atorvastatin (5) Leg swelling: Plan: Renal function okay at time of admission Will hold Lasix, potassium supplementation while on fluids Plan [facility] Keep n.p.o. for now, advance diet as tolerated pending H&Hs VTE PPx: SCDs (will hold chemical DVT PPx in setting of acute rectal bleed) History of Present Illness Chief Complaint: Rectal bleed Primary Care Provider: Raheem Garibay DO Mariselaminhalexia is a pleasant 82-year-old female with PMH of ILD, HLD, CKD, and depression. She presented via BLS for bright red blood in stool x 1 episode the morning of 06/27. She denies past medical history of rectal bleeds, GI bleeds, diverticulitis, or GI issues. Patient notes that there were no clots in her stool this morning, and it was just 1 episode of bright red blood that was fully formed. She reports it looked like it does when she "eats beets". Besides that, she has been having normal bowel movements this past week; no melena. She denies recent NSAID use, but notes that she does take diclofenac potassium tablets twice daily for her ongoing shoulder pain. Patient also takes aspirin nightly, with last taken the evening of 06/26; no other blood thinner use. Patient denies any recent injuries or trauma to the pelvis or abdomen, but does note she fell around 6 weeks ago while sitting up from her recliner; no head strike; she does not use a walker or cane at baseline. Patient reports she did not take her regular morning medications today. She does note she had a recent change in medication when she stopped taking Spiriva on May, as it was causing dizziness and constipation; she aslo notes she has been taking a stool softener for her constipation. Patient is mildly tachycardic at 100 bpm at time of admission; vitals otherwise stable. ED course: Rocephin 2000 mg IV Flagyl 500 mg IV ROS: Patient endorses nightsweats / hot flashes x 2 nights again, dizziness and lightheadedness (resolved), and BRB in rectum x 1. Patient denies fever, chills, LEPE, chest pain, chest palpitations, SOB, cough, pleuritic CP, abdominal pain, N/V/D, urinary s/s, burning with urination, blood in the urine, dark/tarry stool, saddle anesthesia, or numbness/tingling in the arms or legs. Allergies Allergy/AdvReac Type Severity Reaction Status Date / Time tiotropium Allergy Severe Spirivia Unverified 06/28/23 11:04 [From Spiriva with Respimat, HandiHaler] pt hasn't had the handihaler metoclopramide Allergy Intermediate COULDN'T Verified 06/28/23 11:04 EAT PLASTIC AdvReac Mild IRRITATION Uncoded 06/28/23 11:04 ON CONTACT WITH OXYGEN APPLIED ON NOSE Spiriva AdvReac Itching Uncoded 06/17/23 09:13 Home Medications Medication Instructions Recorded Confirmed Type aspirin 81 mg tablet,delayed 81 mg PO HS 02/16/18 06/28/23 History release (Aspir-) diclofenac potassium 50 mg tablet 50 mg PO BID #180 tabs 08/21/22 06/28/23 Rx potassium chloride 10 mEq 10 meq PO BID #180 tabs 09/30/22 06/28/23 Rx tablet,extended release atorvastatin 10 mg tablet 10 mg PO QPM #90 tabs 02/03/23 06/28/23 Rx fluoxetine 40 mg capsule (Prozac) 40 mg PO QAM #90 caps 02/03/23 06/28/23 Rx furosemide 40 mg tablet (Lasix) 40 mg PO QAM #90 tabs 02/03/23 06/28/23 Rx lisinopril 10 mg tablet 10 mg PO QPM #90 tabs 02/03/23 06/28/23 Rx albuterol sulfate 90 mcg/actuation 2 puff inhalation Q6H PRN 05/18/23 06/28/23 Rx aerosol inhaler shortness of breath or wheezing #8.5 grams omeprazole 20 mg capsule,delayed 20 mg PO QAM 06/28/23 06/28/23 History release Past Med/Surg History Medical History (Updated 06/28/23 @ 12:16 by Mushtaq Plasencia PA-C) GERD (gastroesophageal reflux disease) Uterine fibroid Depression Migraine Hypertension Hyperlipidemia Spastic esophagus Surgical History S/P dilatation of esophageal stricture History of hysterectomy History of bilateral tubal ligation History of esophagogastroduodenoscopy (EGD) History of colonoscopy History of tooth extraction Hx of eye surgery RT EYE LASER History of cataract surgery RT/LEFT Bone spur RT/LEFT History of repair of rotator cuff LEFT History of carpal tunnel release RT History of total knee replacement RT History of arthroscopy RT History of total abdominal hysterectomy and bilateral salpingo-oophorectomy Family History Other Hypertension Denies family history of Tuberculosis Heart disease Allergies Emphysema of lung Lung disease Cancer Asthma Social History (Updated 03/26/23 @ 14:58 by Sheri Barraza LPN) Smoking Status: Former smoker Tobacco Type: Cigarettes Cigarettes Per Day: QUIT OVER 20 YEARS AGO; Second Hand Exposure: No; Do You Dip or Chew Tobacco: No; Hx Alcohol Use: Yes Alcohol type: beer Hx Substance Use: No Preferred Language: [place] Communication Ability: Effective Visual Impairment: No Limitations Insecticide Expert Required: No Beliefs That Will Affect Care: None marital status: Current Living Situation: Spouse current occupational status: retired Feels Safe at Home: Yes Diet: low carbohydrate caffeine: Yes Dental Care, Regularly: No Physical Activity Frequency: Does not Exercise Seatbelt Use: always Assistive Devices: Denture - Upper and Denture - Lower Review of Systems Review of Systems: See HPI above Physical Exam Physical Exam: General: no acute distress; pleasant affect; non-toxic appearing; well- nourished; cooperative HEENT: normocephalic, atraumatic; no scleral icterus; PERRLA; moist mucus membrane; vision and hearing grossly intact Neck: supple; no lymphadenopathy; trachea midline Skin: warm, dry without signs of tenting; no cyanosis; no rashes, bruising, lesions, or erythema noted CV: chest wall NTP; RRR; S1/S2 normal; no murmurs/rubs/gallops; pulses intact and symmetric at radial, DP, and PT Lungs: no acute respiratory distress; symmetrical chest wall expansion; clear breath sounds across all lung mcmahon w/o adventitious sounds; no wheezing ABD: Soft, NTP; LLQ NTP; BS present; no rebound/guarding; no ascites; moderate distention secondary to body habitus; no signs of bruising, rashes, or active bleeding on abdomen MSK: no tics or fasciculations; no edema noted in the LEs b/l, nonerythematous Neuro: A&Ox3; normal mood and affect; fluent speech; no focal deficits; sensation grossly intact in the LEs b/l Results & Data Results & Data Vital Signs (Past 12 Hours) Vital Signs Temp Pulse Resp BP Pulse Ox O2 Del Method 06/28/23 11:00 102 H 19 95 Room Air 06/28/23 11:00 104/76 06/28/23 10:30 104 H 26 H 92 06/28/23 10:03 102 H 14 91 06/28/23 10:03 138/72 06/28/23 10:00 105 H 16 06/28/23 09:30 102 H 19 95 Room Air 06/28/23 09:00 150/80 H 06/28/23 09:00 102 H 23 94 Room Air 06/28/23 08:43 Room Air 06/28/23 08:41 107 H 06/28/23 08:40 107 H 20 94 Room Air 06/28/23 08:40 36.8 C 110 H 14 155/91 H 93 Room Air Laboratory Results Abnormal lab results 06/28/23 06/28/23 06/28/23 Range/Units 08:14 08:40 09:41 RBC 3.85 L (4.20-5.40) M/uL Hgb 11.5 L (12.0-16.0) g/dl Hct 35.0 L (37.0-47.0) % [place] # (Auto) 1.10 H (0.11-0.59) K/uL BUN/Creatinine Ratio 22.1 H (10-20) Glucose 113 H (70-99(Fasting)) mg/dl POC Stool Occult Blood Positive A (Negative) Diagnostic Findings Abdomen/Pelvis CT 06/28/23 09:[address] WITH IV CONTRAST CT DOSE: 1380.75 mGy.cm HISTORY: Acute lower abdominal pain with GI bleed acute lower gi bleeding TECHNIQUE: Multiaxial CT images of the abdomen and pelvis were performed following the IV administration of 94 cc of Optiray, A dose lowering technique was utilized adhering to the principles of ALARA. COMPARISON STUDY: 11/02/2007 FINDINGS: Mild cardiomegaly with mitral annular and coronary artery calcifications. Bibasilar atelectasis versus scarring. No free air. Calcified granulomata of the spleen. Unremarkable pancreas and adrenal glands. Hyperdense foci within the gallbladder neck suggestive of cholelithiasis. No CT evidence of acute cholecystitis. Unremarkable liver. Patency of the hepatic and portal veins. Possible punctate calculi of the kidneys. No ureteral calculi or hydronephrosis. Exophytic hypodense 2.2 cm lesion of the interpolar right kidney with Hounsfield unit of 15 suggestive of a probable cyst. Partial distention of the urinary bladder. Hysterectomy. Atherosclerosis of the aorta and branch vessels. No lymphadenopathy. Nonspecific mild inflammatory stranding within the mesenteric root is similar to prior suggestive of a chronic mesentery does. Mild nonspecific distal esophageal wall thickening. Colonic diverticulosis. Minimal adjacent inflammatory stranding adjacent to the proximal sigmoid. No fluid collections. Normal appendix. Unremarkable soft tissues. Degenerative changes of the spine, pelvis and hips. IMPRESSION: 1. Colonic diverticulosis with findings suspicious for mild acute sigmoid diverticulitis. 2. No bowel obstruction, pneumoperitoneum or fluid collection. 3. Cholelithiasis. 4. Additional findings as above. ACT 112: Negative or not required by law. The above report was generated using voice recognition software. It may contain grammatical, syntax or spelling errors. Electronically signed by: Chi Schwartz M.D. 06/28/2023 10:37 AM Code Status & VTE Plan Code Status DNR/DNI VTE Prophylaxis Plan VTE Prophylaxis will be ordered: Yes Supervising Physician Co-Signing Physician Notes PA Supervision Note: I personally saw and examined the patient. I verified all maravilla points and agree with LOAN Plasencia with the following exceptions and/or additions: S-patient presents with a large amount of bright red blood per rectum mixed with stool x 1 this morning. Denies any abdominal pains or nausea. Currently feeling well. Has never had anything like this before and last colonoscopy was 20+ years ago. She does take aspirin and diclofenac. HPI, past medical history, and ROS otherwise as above CBC, coags, CMP, Hemoccult stool all reviewed O- Vitals reviewed Gen: AAOx3, NAD HEENT: Anicteric sclerae, EOMI CV: RRR no mgr nl S1S2 Pulm: CTAB no wcr Abd: +BS soft NT ND no masses or hernias Ext: No edema, 2+ DP pulses Skin: No rashes, warm/dry Neuro: Full strength throughout A/D-34-x[age]-old female here with bright red blood per rectum, likely lower GI bleeding possibly from acute diverticulitis/diverticular bleed. Hold blood thinners, keep n.p.o. for bowel rest, give IV fluids Antibiotics for diverticulitis Trend serial CBC, transfuse if becomes hemodynamically unstable and continues to bleed or hemoglobin less than 7 Will need colonoscopy in 6 to 8 weeks GI consulted PG Care Time/CCT Total # of Minutes Spent Total Time Spent with Patient: Total time spent is greater than 50% in coordination of care (as documented) at patient's floor/unit and/or counseling patient: Coding [place] [address] INT INP/OBS CARE 1/40MIN Patient Type Established Medical Decision Making Low Complexity Diagnoses Sigmoid diverticulitis K57.32 GERD (gastroesophageal reflux disease) K21.9 Depression F32.9 HLD (hyperlipidemia) E78.5 Leg swelling M79.89
[2023-06-28] MEDS: metroNIDAZOLE 500 MG/100 ML BAG IV STA (11:38)
[2023-06-28] MEDS: cefTRIAXone SODIUM 2,000 MG/50 ML BAG IV STA (11:38)
[2023-06-28] MEDS: PLASMA-LYTE A 1,000 ML IV SCH (13:11)
[2023-06-28] MEDS ORDERED: ONDANSETRON INJ 2 MG/ML 2 ML VIAL IV PRN (14:36)
[2023-06-28] MEDS ORDERED: ACETAMINOPHEN 325 MG TAB PO PRN (14:36)
[2023-06-28] MEDS ORDERED: ALBUTEROL HFA 8 GM INHALER INH PRN (14:36)
[2023-06-28 16:55] LABS: Hematocrit (blood only) 32.5 % (37.0-47.0); Hemoglobin 10.9 g/dl (12.0-16.0)
[2023-06-28] MEDS: metroNIDAZOLE 500 MG/100 ML BAG IV SCH (18:20)
[2023-06-28] MEDS: ATORVASTATIN 10 MG TAB PO SCH (20:51)
[2023-06-28] MEDS: lisinopril 10 MG TAB PO SCH (20:51)
[2023-06-28 20:54] LABS: Hematocrit (blood only) 33.1 % (37.0-47.0); Hemoglobin 10.9 g/dl (12.0-16.0)
--- NOTE | 2023-06-29 05:59 | Electrocardiogram Report ---
Test Reason : Blood Pressure : / mmHG Vent. Rate : 104 BPM Atrial Rate : 104 BPM P-R Int : 156 ms QRS Dur : 074 ms QT Int : 370 ms P-R-T Axes : 070 -13 007 degrees QTc Int : 486 ms Poor data quality, interpretation may be adversely affected Sinus tachycardia Low voltage QRS Cannot rule out Anterior infarct , age undetermined Nonspecific T wave abnormality Abnormal ECG When compared with ECG of 04-SEP-2016 09:38, Minimal criteria for Anterior infarct are now Present Nonspecific T wave abnormality now evident in Inferior leads Confirmed by Alonzo Raymond ([id number]) on 06/29/2023 5:58:52 AM Referred By: REFERRED SELF Confirmed By:Alonzo Raymond
[2023-06-29] MEDS: FLUoxetine HCL 20 MG CAP PO SCH (07:08)
[2023-06-29 08:48] LABS: Basophils # (auto) 0.05 K/uL (0.00-0.20); Basophils % (auto) 0.6 %; Eosinophils # (auto) 0.18 K/uL (0.00-0.50); Eosinophils % (auto) 2.3 %; Hematocrit (blood only) 30.1 % (37.0-47.0); Hemoglobin 9.8 g/dl (12.0-16.0); Immature Granulocytes # (auto) 0.03 K/uL (0.01-0.20); Immature Granulocytes % (auto) 0.4 %; Lymphocytes # (auto) 1.37 K/uL (1.20-3.40); Lymphocytes % (auto) 17.3 %; Mean Corpuscular Hemoglobin 29.9 pg (25.0-34.0); Mean Corpuscular Hgb Conc 32.6 g/dL (32.0-36.0); Mean Corpuscular Volume 91.8 fL (80.0-100.0); Mean Platelet Volume 11.8 fL (9.4-12.4); Monocytes # (auto) 0.94 K/uL (0.11-0.59); Monocytes % (auto) 11.9 %; Neutrophils # (auto) 5.34 K/uL (1.40-6.50); Neutrophils % (auto) 67.5 %; Platelet Count 261 K/uL (130-400); RDW Coefficient of Variation 13.4 % (11.5-14.5); Red Blood Count 3.28 M/uL (4.20-5.40); White Blood Count 7.91 K/ul (4.8-10.8)
[2023-06-29 09:12] LABS: BUN Creatinine Ratio 22.5 (10-20); Calcium 9.2 mg/dl (8.6-10.3); Creatinine Clr Calc Pharmacy 58.6 ml/min; Est GFR (Non-African American) 68.2 ml/min; Magnesium 2.2 mg/dl (1.7-2.4); Potassium 4.2 mmol/L (3.5-5.1)
[2023-06-29] MEDS: cefTRIAXone SODIUM 2,000 MG in DEXTROSE 5 % MINI-B 50 ML IV SCH (10:50)
[2023-06-29] MEDS: PANTOprazole 40 MG in SYRINGE DAILY IV SCH (10:50)
[2023-06-29] MEDS ORDERED: PANTOprazole 20 MG in SYRINGE 0 ML IV SCH (11:00)
--- NOTE | 2023-06-29 11:48 | Hospitalist Progress Note ---
Date of Service June 29, 2023 Assessment & Plan (1) Sigmoid diverticulitis: Plan: BRB in rectum x 1 episode on 06/27 prior to admission, Hemoccult + on arrival No leukocytosis; afebrile, no abdominal pain. No prior hx of diverticulitis or GI issues, per patient, last colonoscopy 20+ years ago Hgb 11.5 on admission (baseline 12.5) and now down to 9.8, some from blood loss, some hemodilutional CT A/P showed findings suspicious for mild acute sigmoid diverticulitis; also, did note mild nonspecific distal esophageal wall thickening BUN/creatinine ratio is mildly elevated at 22.1, clinically low suspicion for upper GI bleed Only scant amount of BRBPR today, hemodynamically stable Most likely diverticular bleed associated with acute diverticulitis vs internal hemorrhoid bleed, less likely tumor or AVM Awaiting GI consult but most likely no scopes here Keep n.p.o. for now but will advance to clears later if ok with GI Continue IVFs but reduce rate to 70mL/hr for maintenance Continue Rocephin q24h and metronidazole q8h Continue to hold aspirin and diclofenac Check CBC today at noon, again in the AM if remains stable Transfuse as needed--> blood consent on chart Needs colonoscopy in 6 weeks (2) Acute lower GI bleeding: Plan: as above (3) GERD (gastroesophageal reflux disease): Plan: has a h/o esophageal stenosis on EGD from 2018 that required dilation continue PPI IV for now (4) Depression: Plan: Continue fluoxetine (5) HLD (hyperlipidemia): Plan: Continue atorvastatin (6) Leg swelling: Plan: Renal function okay at time of admission Will hold Lasix, potassium supplementation while on fluids Plan Disposition: continued stay MedSurg DNR/DNI VTE PPx: SCDs (will hold chemical DVT PPx in setting of acute rectal bleed) Admission and Anticipated Discharge Date Admission Date: June 28, 2023 Subjective Had only a few "specks" of dark blood per rectum overnight and then this AM after urinating, wiped her bottom and had some red blood on the TP. Otherwise no BM and no large amounts of BRBPR. Denies abdominal pain, no nausea. No CP, SOB. Physical Exam Constitutional: WD/WN, vitals as above Neck: trachea midline, no thyromegaly Respiratory: normal respiratory effort, lungs clear to auscultation Cardiovascular: RRR, no murmur, no edema Chest (Breasts): Chest: normal inspection of chest Gastrointestinal (Abdomen): normal bowel sounds, soft, nontender, no hepatosplenomegaly Musculoskeletal: Extremities: extremities normal to inspection; no cyanosis and no clubbing Skin: no rashes, warm and dry Neurologic: moves all extremities and awake; no focal motor deficits Psychiatric: A+Ox3, euthymic affect Lymphatic: no lymphedema Results & Data Results & Data Vital Signs (Past 12 Hours) Vital Signs Temp Pulse Resp BP Pulse Ox O2 Del Method 06/29/23 07:39 Room Air 06/29/23 07:00 36.5 C 93 H 14 121/74 90 Room Air Laboratory Results CBC, BMP, magnesium reviewed PG Care Time/CCT Total # of Minutes Spent Total Time Spent with Patient: Total time spent is greater than 50% in coordination of care (as documented) at patient's floor/unit and/or counseling patient: Coding Level of Care Code 40177 SUB INP/OBS CARE 2/35MIN Diagnoses Sigmoid diverticulitis K57.32 Acute lower GI bleeding K92.2 GERD (gastroesophageal reflux disease) K21.9 Depression F32.9 HLD (hyperlipidemia) E78.5 Leg swelling M79.89
[2023-06-29 12:14] LABS: Hematocrit (blood only) 29.7 % (37.0-47.0); Hemoglobin 9.6 g/dl (12.0-16.0); Mean Corpuscular Hemoglobin 29.9 pg (25.0-34.0); Mean Corpuscular Hgb Conc 32.3 g/dL (32.0-36.0); Mean Corpuscular Volume 92.5 fL (80.0-100.0); Mean Platelet Volume 11.6 fL (9.4-12.4); Platelet Count 244 K/uL (130-400); RDW Coefficient of Variation 13.4 % (11.5-14.5); RDW Standard Deviation 45.7 fL (36.4-46.3); Red Blood Count 3.21 M/uL (4.20-5.40); White Blood Count 7.33 K/ul (4.8-10.8)
--- NOTE | 2023-06-29 16:53 | Gastrointestinal Consultation ---
Date of Consultation June 29, 2023 Assessment & Plan (1) Diverticulitis: She has diverticulitis by CT but not by symptomatology. The description that she gives for the bleeding suggests bleeding of an anorectal source. It does not suggest diverticular bleeding. However, her description also does not justify a 2 gm fall in hemoglobin. I think for now we observe and let her go once bleeding stops and/or hemoglobin stabilizes. I still can't do colonoscopy for four to six weeks unless it needs to be done for bleeding. Will follow History of Present Illness Reason for Consultation: diverticulitis Attending Physician: Abbie Naranjo MD History of Present Illness 82 year old female who presented to the hospital with bleeding. In ER Ct was done and showed mild diverticulitis. She is on antibiotics and really feels well. However she is still bleeding. She says the blood initially was on the toilet tissue and in the water but her stool looked normal. That has continued through her time at the hospital. She will have usually three bowel movements per day. There is no urgency with the bleeding. There is no pain. Her hemoglobin has dropped from >11 to 9.6. She has not been having any GI problems up to this admission. It has been a long time since her last colonoscopy Allergies Allergy/AdvReac Type Severity Reaction Status Date / Time tiotropium Allergy Severe Spirivia Unverified 06/28/23 11:04 [From Spiriva with Respimat, HandiHaler] pt hasn't had the handihaler metoclopramide Allergy Intermediate COULDN'T Verified 06/28/23 11:04 EAT PLASTIC AdvReac Mild IRRITATION Uncoded 06/28/23 11:04 ON CONTACT WITH OXYGEN APPLIED ON NOSE Spiriva AdvReac Itching Uncoded 06/17/23 09:13 Home Medications Medication Instructions Recorded Confirmed Type aspirin 81 mg tablet,delayed 81 mg PO HS 02/16/18 06/28/23 History release (Aspir-) diclofenac potassium 50 mg tablet 50 mg PO BID #180 tabs 08/21/22 06/28/23 Rx potassium chloride 10 mEq 10 meq PO BID #180 tabs 09/30/22 06/28/23 Rx tablet,extended release atorvastatin 10 mg tablet 10 mg PO QPM #90 tabs 02/03/23 06/28/23 Rx fluoxetine 40 mg capsule (Prozac) 40 mg PO QAM #90 caps 02/03/23 06/28/23 Rx furosemide 40 mg tablet (Lasix) 40 mg PO QAM #90 tabs 02/03/23 06/28/23 Rx lisinopril 10 mg tablet 10 mg PO QPM #90 tabs 02/03/23 06/28/23 Rx albuterol sulfate 90 mcg/actuation 2 puff inhalation Q6H PRN 05/18/23 06/28/23 Rx aerosol inhaler shortness of breath or wheezing #8.5 grams omeprazole 20 mg capsule,delayed 20 mg PO QAM 06/28/23 06/28/23 History release Patient History Medical History GERD (gastroesophageal reflux disease) Uterine fibroid Depression Migraine Hypertension Hyperlipidemia Spastic esophagus Surgical History S/P dilatation of esophageal stricture History of hysterectomy History of bilateral tubal ligation History of esophagogastroduodenoscopy (EGD) History of colonoscopy History of tooth extraction Hx of eye surgery RT EYE LASER History of cataract surgery RT/LEFT Bone spur RT/LEFT History of repair of rotator cuff LEFT History of carpal tunnel release RT History of total knee replacement RT History of arthroscopy RT History of total abdominal hysterectomy and bilateral salpingo-oophorectomy Family History Other Hypertension Denies family history of Tuberculosis Heart disease Allergies Emphysema of lung Lung disease Cancer Asthma Social History Smoking Status: Former smoker Tobacco Type: Cigarettes Cigarettes Per Day: QUIT OVER 20 YEARS AGO; Smoking End Date: 1997; Second Hand Exposure: No; Do You Dip or Chew Tobacco: No; Hx Alcohol Use: No Hx Substance Use: No Preferred Language: German Communication Ability: Effective Visual Impairment: No Limitations Vice President Integrated Required: No Beliefs That Will Affect Care: None marital status: Current Living Situation: Spouse current occupational status: retired Other Information That Helps Us Care for You: No Feels Safe at Home: Yes Safety Concerns: Feels Safe At This Time Diet: low carbohydrate caffeine: Yes Dental Care, Regularly: No Physical Activity Frequency: Does not Exercise Seatbelt Use: always Assistive Devices: None Review of Systems Review of Systems: All systems reviewed & are unremarkable except as noted in HPI & below Physical Exam Constitutional: WD/WN, vitals as above no acute distress Eyes: PERRL, conjunctivae normal, anicteric sclerae ENMT: external ear and nose normal, oropharynx normal Neck: trachea midline, no thyromegaly Respiratory: normal respiratory effort, lungs clear to auscultation Cardiovascular: RRR, no murmur, no edema Gastrointestinal (Abdomen): normal bowel sounds, soft, nontender, no hepatosplenomegaly Musculoskeletal: Extremities: no cyanosis and no clubbing Skin: no rashes, warm and dry Neurologic: PERRL, EOMI, accommodation nl, no face palsy, no dysarthria Psychiatric: Orientation: alert and oriented x 3 Results & Data Vital Signs (Past 12 Hours) Vital Signs Temp Pulse Resp BP Pulse Ox O2 Del Method 06/29/23 14:41 36.6 C 85 16 120/70 93 Room Air 06/29/23 11:00 36.7 C 18 136/72 90 Room Air 06/29/23 07:39 Room Air 06/29/23 07:00 36.5 C 93 H 14 121/74 90 Room Air Laboratory Results 06/29/23 06/29/23 06/28/23 Range/Units 11:49 08:11 20:30 WBC 7.33 7.91 (4.8-10.8) K/ul RBC 3.21 L 3.28 L (4.20-5.40) M/uL Hgb 9.6 L 9.8 L 10.9 L (12.0-16.0) g/dl Hct 29.7 L 30.1 L 33.1 L (37.0-47.0) % MCV 92.5 91.8 (80.0-100.0) fL MCH 29.9 29.9 (25.0-34.0) pg MCHC 32.3 32.6 (32.0-36.0) g/dL RDW Std Deviation 45.7 45.0 (36.4-46.3) fL RDW Coeff of Binh 13.4 13.4 (11.5-14.5) % Plt Count 244 261 (130-400) K/uL MPV 11.6 11.8 (9.4-12.4) fL Immature Gran % (Auto) 0.4 % Neut % (Auto) 67.5 % Lymph % (Auto) 17.3 % [place] % (Auto) 11.9 % Eos % (Auto) 2.3 % Baso % (Auto) 0.6 % Neut # (Auto) 5.34 (1.40-6.50) K/uL Lymph # (Auto) 1.37 (1.20-3.40) K/uL [place] # (Auto) 0.94 H (0.11-0.59) K/uL Eos # (Auto) 0.18 (0.00-0.50) K/uL Baso # (Auto) 0.05 (0.00-0.20) K/uL Immature Gran # (Auto) 0.03 (0.01-0.20) K/uL Sodium 138 (136-145) mmol/L Potassium 4.2 (3.5-5.1) mmol/L Chloride 108 H (98-107) mmol/L Carbon Dioxide 23 (21-32) mmol/L Anion Gap 7 (3-11) BUN 18 (6-23) mg/dl Creatinine 0.80 (0.6-1.2) mg/dl Est Cr Clr Drug Dosing 58.6 ml/min Est GFR ( Amer) 79.0 ml/min Est GFR (Non-Af Amer) 68.2 ml/min BUN/Creatinine Ratio 22.5 H (10-20) Glucose 107 H (70-99(Fasting)) mg/dl Calcium 9.2 (8.6-10.3) mg/dl Magnesium 2.2 (1.7-2.4) mg/dl 06/28/23 Range/Units 16:35 WBC (4.8-10.8) K/ul RBC (4.20-5.40) M/uL Hgb 10.9 L (12.0-16.0) g/dl Hct 32.5 L (37.0-47.0) % MCV (80.0-100.0) fL MCH (25.0-34.0) pg MCHC (32.0-36.0) g/dL RDW Std Deviation (36.4-46.3) fL RDW Coeff of Binh (11.5-14.5) % Plt Count (130-400) K/uL MPV (9.4-12.4) fL Immature Gran % (Auto) % Neut % (Auto) % Lymph % (Auto) % [place] % (Auto) % Eos % (Auto) % Baso % (Auto) % Neut # (Auto) (1.40-6.50) K/uL Lymph # (Auto) (1.20-3.40) K/uL [place] # (Auto) (0.11-0.59) K/uL Eos # (Auto) (0.00-0.50) K/uL Baso # (Auto) (0.00-0.20) K/uL Immature Gran # (Auto) (0.01-0.20) K/uL Sodium (136-145) mmol/L Potassium (3.5-5.1) mmol/L Chloride (98-107) mmol/L Carbon Dioxide (21-32) mmol/L Anion Gap (3-11) BUN (6-23) mg/dl Creatinine (0.6-1.2) mg/dl Est Cr Clr Drug Dosing ml/min Est GFR ( Amer) ml/min Est GFR (Non-Af Amer) ml/min BUN/Creatinine Ratio (10-20) Glucose (70-99(Fasting)) mg/dl Calcium (8.6-10.3) mg/dl Magnesium (1.7-2.4) mg/dl Diagnostic Findings Abdomen/Pelvis CT 06/28/23 09:[address] WITH IV CONTRAST CT DOSE: 1380.75 mGy.cm HISTORY: Acute lower abdominal pain with GI bleed acute lower gi bleeding TECHNIQUE: Multiaxial CT images of the abdomen and pelvis were performed following the IV administration of 94 cc of Optiray, A dose lowering technique was utilized adhering to the principles of ALARA. COMPARISON STUDY: 11/02/2007 FINDINGS: Mild cardiomegaly with mitral annular and coronary artery calcifications. Bibasilar atelectasis versus scarring. No free air. Calcified granulomata of the spleen. Unremarkable pancreas and adrenal glands. Hyperdense foci within the gallbladder neck suggestive of cholelithiasis. No CT evidence of acute cholecystitis. Unremarkable liver. Patency of the hepatic and portal veins. Possible punctate calculi of the kidneys. No ureteral calculi or hydronephrosis. Exophytic hypodense 2.2 cm lesion of the interpolar right kidney with Hounsfield unit of 15 suggestive of a probable cyst. Partial distention of the urinary bladder. Hysterectomy. Atherosclerosis of the aorta and branch vessels. No lymphadenopathy. Nonspecific mild inflammatory stranding within the mesenteric root is similar to prior suggestive of a chronic mesentery does. Mild nonspecific distal esophageal wall thickening. Colonic diverticulosis. Minimal adjacent inflammatory stranding adjacent to the proximal sigmoid. No fluid collections. Normal appendix. Unremarkable soft tissues. Degenerative changes of the spine, pelvis and hips. IMPRESSION: 1. Colonic diverticulosis with findings suspicious for mild acute sigmoid dive rticulitis. 2. No bowel obstruction, pneumoperitoneum or fluid collection. 3. Cholelithiasis. 4. Additional findings as above. ACT 112: Negative or not required by law. The above report was generated using voice recognition software. It may contain grammatical, syntax or spelling errors. Electronically signed by: Chi Schwartz M.D. 06/28/2023 10:37 AM
[2023-06-30 09:27] LABS: Basophils # (auto) 0.06 K/uL (0.00-0.20); Basophils % (auto) 0.9 %; Eosinophils % (auto) 4.3 %; Hematocrit (blood only) 29.8 % (37.0-47.0); Hemoglobin 9.7 g/dl (12.0-16.0); Immature Granulocytes # (auto) 0.08 K/uL (0.01-0.20); Immature Granulocytes % (auto) 1.1 %; Lymphocytes # (auto) 1.29 K/uL (1.20-3.40); Lymphocytes % (auto) 18.5 %; Mean Corpuscular Hemoglobin 29.8 pg (25.0-34.0); Mean Corpuscular Hgb Conc 32.6 g/dL (32.0-36.0); Mean Corpuscular Volume 91.7 fL (80.0-100.0); Mean Platelet Volume 11.8 fL (9.4-12.4); Monocytes # (auto) 0.82 K/uL (0.11-0.59); Monocytes % (auto) 11.8 %; Neutrophils # (auto) 4.42 K/uL (1.40-6.50); Neutrophils % (auto) 63.4 %; Platelet Count 273 K/uL (130-400); RDW Coefficient of Variation 13.3 % (11.5-14.5); Red Blood Count 3.25 M/uL (4.20-5.40); White Blood Count 6.97 K/ul (4.8-10.8)
[2023-06-30 09:40] LABS: Calcium 9.2 mg/dl (8.6-10.3); Creatinine Clr Calc Pharmacy 46.9 ml/min; Est GFR (African American) 60.3 ml/min; Est GFR (Non-African American) 52.1 ml/min; Potassium 3.7 mmol/L (3.5-5.1)
--- NOTE | 2023-06-30 14:12 | Hospitalist Progress Note ---
Date of Service June 30, 2023 Assessment & Plan (1) Sigmoid diverticulitis: Plan: BRB in rectum x 1 episode on 06/27 prior to admission, Hemoccult + on arrival No leukocytosis; afebrile, no abdominal pain. No prior hx of diverticulitis or GI issues, per patient, last colonoscopy 20+ years ago Hgb 11.5 on admission (baseline 12.5) and now down to 9.7, stable from yesterday, some from blood loss, some hemodilutional CT A/P showed findings suspicious for mild acute sigmoid diverticulitis; also, did note mild nonspecific distal esophageal wall thickening BUN/creatinine ratio is mildly elevated at 22.1, clinically low suspicion for upper GI bleed Only scant amount of BRBPR again today and less than yesterday, remains hemodynamically stable Most likely diverticular bleed associated with acute diverticulitis vs internal hemorrhoid bleed, less likely tumor or AVM Appreciate GI consult -plan for colonoscopy in 4-6 weeks Tolerating clears-advance to low fiber today dcd IVFs Continue Rocephin q24h and metronidazole q8h but change to po flagyl Continue to hold aspirin and diclofenac Follow CBC in AM Transfuse as needed--> blood consent on chart Needs colonoscopy in 6 weeks If minimal or no rectal bleeding after starting low fiber diet, plan to dc to home tomorrow start docusate bid in case of internal hemorrhoids (2) Acute lower GI bleeding: Plan: as above (3) GERD (gastroesophageal reflux disease): Plan: has a h/o esophageal stenosis on EGD from 2018 that required dilation continue PPI but change to po (4) Depression: Plan: Continue fluoxetine (5) HLD (hyperlipidemia): Plan: Continue atorvastatin (6) Leg swelling: Plan: Renal function okay at time of admission continue to hold Lasix, potassium supplementation Plan Disposition: continued stay MedSurg DNR/DNI VTE PPx: SCDs (hold chemical DVT PPx in setting of acute rectal bleed) Admission and Anticipated Discharge Date Admission Date: June 29, 2023 Subjective Pt had a small blood clot per rectum x 2 today and scant pink water in toilet but otherwise doing well. No lightheadedness, no abd pain, no nausea. tolerating clear liquids. Physical Exam Constitutional: WD/WN, vitals as above Neck: trachea midline, no thyromegaly Respiratory: normal respiratory effort, lungs clear to auscultation Cardiovascular: RRR, no murmur, no edema Chest (Breasts): Chest: normal inspection of chest Gastrointestinal (Abdomen): normal bowel sounds, soft, nontender, no hepatosplenomegaly Musculoskeletal: Extremities: extremities normal to inspection; no cyanosis and no clubbing Skin: no rashes, warm and dry Neurologic: moves all extremities and awake; no focal motor deficits Psychiatric: A+Ox3, euthymic affect Lymphatic: no lymphedema Results & Data Results & Data Vital Signs (Past 12 Hours) Vital Signs Temp Pulse Resp BP Pulse Ox O2 Del Method 06/30/23 07:11 36.7 C 94 H 16 130/66 92 Room Air Laboratory Results CBC, BMP reviewed PG Care Time/CCT Total # of Minutes Spent Total Time Spent with Patient: Total time spent is greater than 50% in coordination of care (as documented) at patient's floor/unit and/or counseling patient: Coding Level of Care Code 72385 SUB INP/OBS CARE 2/35MIN Diagnoses Sigmoid diverticulitis K57.32 Acute lower GI bleeding K92.2 GERD (gastroesophageal reflux disease) K21.9 Depression F32.9 HLD (hyperlipidemia) E78.5 Leg swelling M79.89
[2023-06-30] MEDS: DOCUSATE SODIUM 100 MG CAP PO SCH (14:22)
--- NOTE | 2023-06-30 16:34 | Gastroenterology Progress Note ---
Date of Service June 30, 2023 Assessment & Plan (1) Diverticulitis: Plan: agree with plans to discharge tomorrow if still doing well Admission and Anticipated Discharge Date Admission Date: June 29, 2023 Subjective Doing well. Minimal blood on the tissue. H/H stable Physical Exam Physical Exam: She looks well Results & Data Vital Signs (Past 12 Hours) Vital Signs Temp Pulse Resp BP Pulse Ox O2 Del Method 06/30/23 14:32 36.7 C 73 16 126/67 94 Room Air 06/30/23 07:11 36.7 C 94 H 16 130/66 92 Room Air
[2023-06-30] MEDS: metroNIDAZOLE 500 MG TAB PO SCH (21:59)
[2023-07-01 06:26] LABS: Basophils # (auto) 0.06 K/uL (0.00-0.20); Basophils % (auto) 0.8 %; Eosinophils # (auto) 0.34 K/uL (0.00-0.50); Eosinophils % (auto) 4.8 %; Hematocrit (blood only) 27.2 % (37.0-47.0); Hemoglobin 8.8 g/dl (12.0-16.0); Immature Granulocytes # (auto) 0.03 K/uL (0.01-0.20); Immature Granulocytes % (auto) 0.4 %; Lymphocytes # (auto) 1.51 K/uL (1.20-3.40); Lymphocytes % (auto) 21.2 %; Mean Corpuscular Hemoglobin 29.6 pg (25.0-34.0); Mean Corpuscular Hgb Conc 32.4 g/dL (32.0-36.0); Mean Corpuscular Volume 91.6 fL (80.0-100.0); Mean Platelet Volume 11.8 fL (9.4-12.4); Monocytes # (auto) 0.97 K/uL (0.11-0.59); Monocytes % (auto) 13.6 %; Neutrophils # (auto) 4.21 K/uL (1.40-6.50); Neutrophils % (auto) 59.2 %; Platelet Count 240 K/uL (130-400); RDW Coefficient of Variation 13.3 % (11.5-14.5); RDW Standard Deviation 43.8 fL (36.4-46.3); Red Blood Count 2.97 M/uL (4.20-5.40); White Blood Count 7.12 K/ul (4.8-10.8)
[2023-07-01 06:47] LABS: BUN Creatinine Ratio 9.9 (10-20); Calcium 8.8 mg/dl (8.6-10.3); Creatinine Clr Calc Pharmacy 46.5 ml/min; Est GFR (African American) 59.6 ml/min; Est GFR (Non-African American) 51.4 ml/min; Potassium 3.6 mmol/L (3.5-5.1)
[2023-07-01] MEDS: PANTOprazole 40 MG TAB PO SCH (09:25)
[2023-07-01 13:10] LABS: Hematocrit (blood only) 30.6 % (37.0-47.0); Hemoglobin 9.8 g/dl (12.0-16.0); Mean Corpuscular Hemoglobin 29.7 pg (25.0-34.0); Mean Corpuscular Volume 92.7 fL (80.0-100.0); Mean Platelet Volume 11.8 fL (9.4-12.4); Platelet Count 286 K/uL (130-400); RDW Coefficient of Variation 13.2 % (11.5-14.5); RDW Standard Deviation 45.1 fL (36.4-46.3); White Blood Count 8.11 K/ul (4.8-10.8)
--- NOTE | 2023-07-01 13:54 | Discharge Summary ---
Discharge Summary Date of Service July 01, 2023 Notes For Next Care Provider Needs colonoscopy in 6 weeks Check CBC in 1 week Medication Changes From Visit Added Augmentin 875/125mg po bid x 6 more days Discontinue ASA, diclofenac Added Tylenol prn pain Added docusate 100mg po bid Added ferrous sulfate 325mg po daily Admission HPI Per Admitting Provider Garrick is a pleasant 82-year-old female with PMH of ILD, HLD, CKD, and depression. She presented via BLS for bright red blood in stool x 1 episode the morning of 06/27. She denies past medical history of rectal bleeds, GI bleeds, diverticulitis, or GI issues. Patient notes that there were no clots in her stool this morning, and it was just 1 episode of bright red blood that was fully formed. She reports it looked like it does when she "eats beets". Besides that, she has been having normal bowel movements this past week; no melena. She denies recent NSAID use, but notes that she does take diclofenac potassium tablets twice daily for her ongoing shoulder pain. Patient also takes aspirin nightly, with last taken the evening of 06/26; no other blood thinner use. Patient denies any recent injuries or trauma to the pelvis or abdomen, but does note she fell around 6 weeks ago while sitting up from her recliner; no head strike; she does not use a walker or cane at baseline. Patient reports she did not take her regular morning medications today. She does note she had a recent change in medication when she stopped taking Spiriva on May, as it was causing dizziness and constipation; she aslo notes she has been taking a stool softener for her constipation. Patient is mildly tachycardic at 100 bpm at time of admission; vitals otherwise stable. ED course: Rocephin 2000 mg IV Flagyl 500 mg IV ROS: Patient endorses nightsweats / hot flashes x 2 nights again, dizziness and lightheadedness (resolved), and BRB in rectum x 1. Patient denies fever, chills, LEPE, chest pain, chest palpitations, SOB, cough, pleuritic CP, abdominal pain, N/V/D, urinary s/s, burning with urination, blood in the urine, dark/tarry stool, saddle anesthesia, or numbness/tingling in the arms or legs. Principal Dx & Hospital Course #1 = Principal Diagnosis (1) Sigmoid diverticulitis: BRB in rectum x 1 episode on 06/27 prior to admission, Hemoccult + on arrival No leukocytosis; afebrile, no abdominal pain. No prior hx of diverticulitis or GI issues, per patient, last colonoscopy 10+ years ago Hgb 11.5 on admission (baseline 12.5) and now down to 9.8, stable from previous, some from blood loss, some hemodilutional CT A/P showed findings suspicious for mild acute sigmoid diverticulitis; also, did note mild nonspecific distal esophageal wall thickening BUN/creatinine ratio is mildly elevated at 22.1, clinically low suspicion for upper GI bleed Only scant amount of BRBPR after admission and none in last 24 hours before discharge while eating low fiber diet remains hemodynamically stable Most likely internal hemorrhoidal bleed from recent constipation vs less likely diverticular bleed associated with acute diverticulitis Appreciate GI consult -plan for colonoscopy in 4-6 weeks COntinue low fiber diet x 1 more week and then adv to high fiber diet to prevent constipation and to prevent diverticulitis Received Rocephin and metronidazole and change to po Augmentin bid on discharge x 6 more days Discontinued aspirin (was on for primary prevention post-menopausal as per previous PCP) and diclofenac (can take tylenol instead for OA pain) Follow CBC in one week started docusate bid in case of internal hemorrhoids to prevent straining (2) Acute lower GI bleeding: as above (3) GERD (gastroesophageal reflux disease): has a h/o esophageal stenosis on EGD from 2018 that required dilation continue PPI (4) Depression: Continue fluoxetine (5) HLD (hyperlipidemia): Continue atorvastatin (6) Leg swelling: Renal function normal held Lasix, potassium supplementation while with minimal po but can resume on discharge Plan Disposition: continued stay MedSurg DNR/DNI VTE PPx: SCDs (hold chemical DVT PPx in setting of acute rectal bleed) Discharge Exam Constitutional WD/WN, vitals as above Neck trachea midline, no thyromegaly Respiratory normal respiratory effort, lungs clear to auscultation Cardiovascular RRR, no murmur, no edema Chest (Breasts) Chest: normal inspection of chest Gastrointestinal (Abdomen) normal bowel sounds, soft, nontender, no hepatosplenomegaly Musculoskeletal Extremities: extremities normal to inspection; no cyanosis and no clubbing Skin no rashes, warm and dry Neurologic moves all extremities and awake; no focal motor deficits Psychiatric A+Ox3, euthymic affect Lymphatic no lymphedema Updated Medication List Medication Instructions Recorded Confirmed Type potassium chloride 10 mEq 10 meq PO BID #180 tabs 09/30/22 06/28/23 Rx tablet,extended release atorvastatin 10 mg tablet 10 mg PO QPM #90 tabs 02/03/23 06/28/23 Rx fluoxetine 40 mg capsule (Prozac) 40 mg PO QAM #90 caps 02/03/23 06/28/23 Rx furosemide 40 mg tablet (Lasix) 40 mg PO QAM #90 tabs 02/03/23 06/28/23 Rx lisinopril 10 mg tablet 10 mg PO QPM #90 tabs 02/03/23 06/28/23 Rx albuterol sulfate 90 mcg/actuation 2 puff inhalation Q6H PRN 05/18/23 06/28/23 Rx aerosol inhaler shortness of breath or wheezing #8.5 grams omeprazole 20 mg capsule,delayed 20 mg PO QAM 06/28/23 06/28/23 History release acetaminophen 325 mg tablet 650 mg (2 x 325 mg) PO Q4H PRN 07/01/23 Rx pain #30 tabs amoxicillin 875 mg-potassium 1 tab PO BID #12 tabs 07/01/23 Rx clavulanate 125 mg tablet docusate sodium 100 mg capsule 100 mg PO BID #60 caps 07/01/23 Rx ferrous sulfate 325 mg (65 mg 325 mg PO DAILY #30 tabs 07/01/23 Rx iron) tablet Hospital Stay Data Consultations 06/28/23 11:40 ED Decision to Admit Stat 06/28/23 14:36 Consult Gastroenterology Routine Diagnostic Imagining Performed 06/28/23 09:41 CT Abd and Pelvis [CT abd pelvis IV con only] Stat Pending Results Patient Have Any Pending Studies at Discharge: No Discharge Instructions Given to Patient (Per Discharging Provider) Please take 6 more days of the antibiotic called Augmentin, twice a day for your diverticulitis. You should remain OFF of the aspirin and the diclofenac as these are blood thinners. It is important to prevent constipation so please continue taking a stool softener twice a day and you can also take Miralax as needed-these are both OTC medications. You can take OTC iron pills a few times a week to help build your blood count back up, but if they make you have constipation, then stop taking them. They can also make your stool turn dark in color. If your stool is black and tarry and loose, that is more likely to be from bleeding and you should call your doctor. You will need a colonoscopy in 6 weeks and the GI doctor's office should be contacting you to make this appointment. Total Time Total Time Spent Total Time Spent (In Minutes): 35 min Coding Level of Care Code 57682 INP/OBS DISCH >30 MIN Diagnoses Sigmoid diverticulitis K57.32 Acute lower GI bleeding K92.2 GERD (gastroesophageal reflux disease) K21.9 Depression F32.9 HLD (hyperlipidemia) E78.5 Leg swelling M79.89
== END 2023-07-01 14:33 | disposition home or self-care (01) | DRG 393 ==
LOC: 3W 08:32 → ED 08:32 → 3W 13:33

== ENCOUNTER 2023-10-06 11:46 | Inpatient (IN) ==
[2023-10-06 12:29] LABS: Basophils # (auto) 0.06 K/uL (0.00-0.20); Basophils % (auto) 0.6 %; Eosinophils # (auto) 0.21 K/uL (0.00-0.50); Eosinophils % (auto) 1.9 %; Hematocrit (blood only) 35.5 % (37.0-47.0); Hemoglobin 11.2 g/dl (12.0-16.0); Immature Granulocytes # (auto) 0.04 K/uL (0.01-0.20); Immature Granulocytes % (auto) 0.4 %; Lymphocytes # (auto) 2.03 K/uL (1.20-3.40); Lymphocytes % (auto) 18.7 %; Mean Corpuscular Hemoglobin 29.1 pg (25.0-34.0); Mean Corpuscular Hgb Conc 31.5 g/dL (32.0-36.0); Mean Corpuscular Volume 92.2 fL (80.0-100.0); Mean Platelet Volume 11.5 fL (9.4-12.4); Monocytes # (auto) 1.21 K/uL (0.11-0.59); Monocytes % (auto) 11.1 %; Neutrophils # (auto) 7.33 K/uL (1.40-6.50); Neutrophils % (auto) 67.3 %; Platelet Count 325 K/uL (130-400); RDW Coefficient of Variation 14.8 % (11.5-14.5); RDW Standard Deviation 50.2 fL (36.4-46.3); Red Blood Count 3.85 M/uL (4.20-5.40); White Blood Count 10.88 K/ul (4.8-10.8)
[2023-10-06 12:39] LABS: Albumin Globulin Ratio 1.1 (0.9-2); Albumin Level 4.2 gm/dl (3.4-5.0); BUN Creatinine Ratio 10.3 (10-20); Bilirubin,Total 0.4 mg/dl (0.2-1.0); Calcium 10.2 mg/dl (8.6-10.3); Creatinine Clr Calc Pharmacy 39.8 ml/min; Est GFR (African American) 49.9 ml/min; Est GFR (Non-African American) 43.1 ml/min; Globulin 3.7 gm/dl (2.5-4.0); Magnesium 2.1 mg/dl (1.7-2.4); Phosphorus 2.6 mg/dl (2.5-4.9); Potassium 4.4 mmol/L (3.5-5.1); Total Protein 7.9 gm/dl (6.0-8.3)
[2023-10-06 12:43] LABS: Base Excess VBG -1.6 mEq/L; HCO3 VBG 23 mmol/L; PCO2 VBG 37 mmHg (38-50); PO2 VBG 103 mmHg
[2023-10-06 12:44] LABS: Troponin I High Sensitivity 3.6 pg/ml (0-14)
[2023-10-06 12:55] LABS: Prothrombin Time 10.9 Seconds (9.0-12.0)
--- NOTE | 2023-10-06 13:10 | Emergency Department Note ---
Impression & Plan Acute hypoxic respiratory failure, ILD (interstitial lung disease), Leg swelling, COPD exacerbation ED Provider Note NAME: DEE WANG AGE: 82 SEX: F : 1940 ARRIVES VIA: Walk-In INFORMANT: Patient ED PROVIDER(S): Rigo Perry MD CHIEF COMPLAINT: Hypoxia, shortness of breath, referred. PLAN: Disposition: Admit MEDICAL DECISION MAKING: The patient is a pleasant 82-year-old woman with past medical history of interstitial lung disease/COPD, GERD, CKD who presents to the emergency department via walk-in for evaluation of hypoxia which was noticed in preop assessment prior to a outpatient scheduled endoscopy/colonoscopy which was arranged after having lower GI bleeding in the setting of sigmoid diverticulitis. Patient denies any recurrence of GI bleeding. She reports she has been short of breath for at least the past couple of months and this is been stable. Reports did not feel particularly more short of breath today and so she was surprised when she was told her oxygen was in the 70s on RA. The patient reports she feels her weight has been stable he 70s. She denies any fevers, nausea, vomiting, diarrhea or urinary symptoms. Denies any change in her lower extremity edema. On evaluation the patient is mildly dyspneic but no acute distress, afebrile with heart rate in the 100s and blood pressure 150s/70s and vital signs otherwise stable. O2 saturation improved to low 90s on 3 L nasal cannula. He has 1+ bilateral lower extremity edema which she reports is chronic. Lungs are diminished at the bases with underlying wheeze and rhonchi. EKG without overt acute ischemia. CXR negative for acute cardiopulmonary process per my personal preliminary review/interpretation. WBC 10.8 with neutrophil predominance though no left shift. H/H similar to prior values. Platelets within normal limits. Chemistry without metabolic acidosis. VBG without significant abnormality. Electrolytes unremarkable. High-sensitivity troponin is 3.6, within normal limits. BMP is normal at 60. Lipase is normal. Procalcitonin is not elevated. Respiratory BioFire was negative. CT of the chest was negative for PE or airspace consolidation or pleural effusion. Emphysema with superimposed changes of chronic interstitial lung disease are described. Patient was treated with Solu-Medrol and DuoNebl for component of bronchospasm. Initially given lower extremity edema she was given 40 mg dose of IV Lasix for possible component of mild hypervolemia. Given the patient's oxygen requirement she does agree with plan for referral for admission for further management. Case was discussed with RUFUS Ivan PAC, with [facility] hospitalist who will evaluate the patient for admission. Further management per admitting team. Triage Nursing notes reviewed and agree them. Prior/external medical records reviewed Vital Signs: reviewed Differential diagnosis: Reactive airway disease, pneumonia, pneumothorax, COPD, CHF, infections, cardiac ischemia, pulmonary embolism, musculoskeletal, gastrointestinal, as well as other pathologies. ER treatment provided: See below. Diagnostics interpreted by me: ECG: Normal sinus rhythm, 97 bpm, no ectopy, no overt ST elevation or depression, QTc 45 QRS 84. Cardiac Monitoring: An order for continuous cardiac monitoring was placed and demonstrated Normal sinus rhythm, 97 bpm, no ectopy. Laboratory studies: See below Imaging studies: See below Consultation(s): RUFUS Ivan PAC, with RUFUS [facility] hospitalist HPI: The patient is a pleasant 82-year-old woman with past medical history of interstitial lung disease/COPD, GERD, CKD who presents to the emergency department via walk-in for evaluation of hypoxia which was noticed in preop assessment prior to a outpatient scheduled endoscopy/colonoscopy which was arranged after having lower GI bleeding in the setting of sigmoid diverticulitis. Patient denies any recurrence of GI bleeding. She reports she has been short of breath for at least the past couple of months and this is been stable. Reports did not feel particularly more short of breath today and so she was surprised when she was told her oxygen was in the 70s on RA. The patient reports she feels her weight has been stable he 70s. She denies any fevers, nausea, vomiting, diarrhea or urinary symptoms. Denies any change in her lower extremity edema. ROS: See above HPI for pertinent positives & negatives. A total of 10 systems reviewed and were otherwise negative. VITALS:See Below PHYSICAL EXAMINATION: GENERAL: Awake, alert, mildly dyspneic but in no distress, BMI 36.7. HENT: Normocephalic, atraumatic. Oropharynx unremarkable. EYES: Normal conjunctiva. Sclera non-icteric. NECK: Supple. No nuchal rigidity. FROM. No JVD. RESPIRATORY: Diminished at the bases with underlying wheeze and rhonchi. CARDIAC: Tachycardic rate, normal rhythm. Extremities warm and well perfused. Pulses equal. ABDOMEN: Soft, non-distended. No tenderness to palpation. No rebound or guarding. No masses. MUSCULOSKELETAL: Chest examination reveals no tenderness. The back is symmetrical on inspection without obvious abnormality. There is no CVA tenderness to palpation. No joint edema. LOWER EXTREMITIES: Calves are equal size bilaterally and non-tender. No edema. No discoloration. NEURO: Normal sensorium. No sensory or motor deficits noted. SKIN: No rash or jaundice noted. Rigo Perry MD Past Med/Surg History Problem List (Updated 10/07/23 @ 01:33 by Rigo Perry MD) COPD exacerbation (Acute) COPD (chronic obstructive pulmonary disease) Acute hypoxic respiratory failure (Acute) Acute blood loss anemia GERD (gastroesophageal reflux disease) Sigmoid diverticulitis Class 2 obesity due to excess calories with body mass index (BMI) of 36.0 to 36.9 in adult Leg swelling (Acute) Restrictive lung disease Hypercalcemia (Chronic) CKD (chronic kidney disease) stage 3, GFR 30-59 ml/min (Chronic) HLD (hyperlipidemia) (Chronic) Elevated fasting glucose (Chronic) Alveolar emphysema of lung ILD (interstitial lung disease) (Chronic) Ex-smoker Snoring Exertional shortness of breath Abnormal PFTs (pulmonary function tests) Depression (Chronic) Medical History GERD (gastroesophageal reflux disease) Uterine fibroid Depression Migraine Hypertension Hyperlipidemia Spastic esophagus Surgical History S/P dilatation of esophageal stricture History of hysterectomy History of bilateral tubal ligation History of esophagogastroduodenoscopy (EGD) History of colonoscopy History of tooth extraction Hx of eye surgery RT EYE LASER History of cataract surgery RT/LEFT Bone spur RT/LEFT History of repair of rotator cuff LEFT History of carpal tunnel release RT History of total knee replacement RT History of arthroscopy RT History of total abdominal hysterectomy and bilateral salpingo-oophorectomy Family History Other Hypertension Denies family history of Tuberculosis Heart disease Allergies Emphysema of lung Lung disease Cancer Asthma Social History (Updated 07/30/23 @ 10:47 by PETER Guerrero) Smoking Status: Never smoker Tobacco Type: Cigarettes Cigarettes Per Day: QUIT OVER 20 YEARS AGO; Second Hand Exposure: No; Do You Dip or Chew Tobacco: No; Hx Alcohol Use: No Hx Substance Use: No Preferred Language: Sinhala Communication Ability: Effective Visual Impairment: No Limitations Lining Maker Hand Required: No Beliefs That Will Affect Care: None marital status: Current Living Situation: Spouse current occupational status: retired Feels Safe at Home: Yes Diet: low carbohydrate caffeine: Yes Dental Care, Regularly: No Physical Activity Frequency: Does not Exercise Seatbelt Use: always Assistive Devices: Denture - Upper, Denture - Lower and Oxygen - Continuous Allergies Allergies Allergy/AdvReac Type Severity Reaction Status Date / Time tiotropium Allergy Severe Spirivia Unverified 09/24/23 13:56 [From Spiriva with Respimat, HandiHaler] pt hasn't had the handihaler metoclopramide Allergy Intermediate COULDN'T Verified 09/24/23 13:56 EAT PLASTIC AdvReac Mild IRRITATION Uncoded 09/24/23 13:56 ON CONTACT WITH OXYGEN APPLIED ON NOSE Spiriva AdvReac Itching Uncoded 09/24/23 13:56 Home Meds Home Medications Medication Instructions Recorded Confirmed ferrous sulfate 325 mg (65 mg 325 mg PO .WED,WED,Wednesday10/06/23 10/06/23 iron) tablet Previous Rx's Medication Instructions Recorded atorvastatin 10 mg tablet 10 mg PO QPM #90 tabs 02/03/23 fluoxetine 40 mg capsule (Prozac) 40 mg PO QAM #90 caps 02/03/23 furosemide 40 mg tablet (Lasix) 40 mg PO QAM #90 tabs 02/03/23 lisinopril 10 mg tablet 10 mg PO QPM #90 tabs 02/03/23 acetaminophen 325 mg tablet 650 mg (2 x 325 mg) PO Q4H PRN 07/01/23 pain #30 tabs diclofenac potassium 50 mg tablet 50 mg PO BID #180 tabs 07/30/23 docusate sodium 100 mg capsule 100 mg PO BID 90 days #180 caps 07/30/23 montelukast 10 mg tablet 10 mg PO DAILY #30 tabs 09/24/23 (Singulair) potassium chloride 10 mEq 10 meq PO BID #180 tabs 09/27/23 tablet,extended release albuterol sulfate 90 mcg/actuation 2 puff inhalation Q6H PRN 09/30/23 aerosol inhaler shortness of breath or wheezing #8.5 grams omeprazole 20 mg capsule,delayed 20 mg PO QAM #90 caps 09/30/23 release Results & Data (ED) Vital Signs Vital Signs - 24 hr 10/06/23 11:52 10/06/23 12:18 10/06/23 12:36 Temperature 36.9 C Temperature Source Temporal Artery Scan Pulse Rate 102 H 93 H 96 H Pulse Rate [Apical] Pulse Rhythm [Apical] Pulse Strength [Apical] Respiratory Rate 16 22 Respiratory Effort / Characteristics Non-Labored Spontaneous Respiratory Depth Normal Respiratory Pattern Blood Pressure 151/75 H Blood Pressure [Right Arm] Blood Pressure Mean 100 Blood Pressure Mean [Right Arm] Blood Pressure Position Right Lateral Blood Pressure Position [Right Arm] Pulse Oximetry 77 L 91 Oxygen Delivery Method Room Air Nasal Cannula Oxygen Flow Rate 3 Sepsis Recent Fever Within 48 Hours No Sepsis New/Unexplained Change in Mental Status No Sepsis Action Taken by Nursing No Action Required 10/06/23 12:41 10/06/23 14:00 10/06/23 14:30 Temperature Temperature Source Pulse Rate Pulse Rate [Apical] 95 H 64 91 H Pulse Rhythm [Apical] Regular Pulse Strength [Apical] Normal Respiratory Rate 22 20 18 Respiratory Effort / Characteristics Non-Labored Spontaneous Spontaneous Non-Labored Respiratory Depth Normal Normal Normal Respiratory Pattern Regular Regular Blood Pressure Blood Pressure [Right Arm] 136/65 124/89 122/76 Blood Pressure Mean Blood Pressure Mean [Right Arm] 88 100 91 Blood Pressure Position Blood Pressure Position [Right Arm] Lying Lying Lying Pulse Oximetry 93 95 92 Oxygen Delivery Method Nasal Cannula Nasal Cannula Oxygen Flow Rate 3 3 Sepsis Recent Fever Within 48 Hours Sepsis New/Unexplained Change in Mental Status Sepsis Action Taken by Nursing Laboratory Data Attestation: I reviewed the patient's lab results. 10/06/23 12:07 10/06/23 12:07 Lab Results 10/06/23 10/06/23 10/06/23 Range/Units 12:07 12:13 12:37 WBC 10.88 H (4.8-10.8) K/ul RBC 3.85 L (4.20-5.40) M/uL Hgb 11.2 L (12.0-16.0) g/dl Hct 35.5 L (37.0-47.0) % MCV 92.2 (80.0-100.0) fL MCH 29.1 (25.0-34.0) pg MCHC 31.5 L (32.0-36.0) g/dL RDW Std Deviation 50.2 H (36.4-46.3) fL RDW Coeff of Binh 14.8 H (11.5-14.5) % Plt Count 325 (130-400) K/uL MPV 11.5 (9.4-12.4) fL Immature Gran % (Auto) 0.4 % Neut % (Auto) 67.3 % Lymph % (Auto) 18.7 % [place] % (Auto) 11.1 % Eos % (Auto) 1.9 % Baso % (Auto) 0.6 % Neut # (Auto) 7.33 H (1.40-6.50) K/uL Lymph # (Auto) 2.03 (1.20-3.40) K/uL [place] # (Auto) 1.21 H (0.11-0.59) K/uL Eos # (Auto) 0.21 (0.00-0.50) K/uL Baso # (Auto) 0.06 (0.00-0.20) K/uL Immature Gran # (Auto) 0.04 (0.01-0.20) K/uL PT 10.9 (9.0-12.0) Seconds INR 1.0 (0.9-1.1) VBG pH 7.40 (7.36-7.41) VBG pCO2 37 L (38-50) mmHg VBG pO2 103 mmHg VBG HCO3 23 mmol/L VBG O2 Saturation 100.0 % VBG Base Excess -1.6 mEq/L Sodium 137 (136-145) mmol/L Potassium 4.4 (3.5-5.1) mmol/L Chloride 104 (98-107) mmol/L Carbon Dioxide 25 (21-32) mmol/L Anion Gap 8 (3-11) BUN 12 (6-23) mg/dl Creatinine 1.17 (0.6-1.2) mg/dl Est Cr Clr Drug Dosing 39.8 ml/min Est GFR ( Amer) 49.9 ml/min Est GFR (Non-Af Amer) 43.1 ml/min BUN/Creatinine Ratio 10.3 (10-20) Glucose 109 H (70-99(Fasting)) mg/dl Calcium 10.2 (8.6-10.3) mg/dl Phosphorus 2.6 (2.5-4.9) mg/dl Magnesium 2.1 (1.7-2.4) mg/dl Total Bilirubin 0.4 (0.2-1.0) mg/dl AST 22 (13-39) U/L ALT 14 (7-52) U/L Alkaline Phosphatase 80 (34-104) U/L Troponin I High Sens 3.6 (0-14) pg/ml B-Natriuretic Peptide 60 (0-100) pg/ml Total Protein 7.9 (6.0-8.3) gm/dl Albumin 4.2 (3.4-5.0) gm/dl Globulin 3.7 (2.5-4.0) gm/dl Albumin/Globulin Ratio 1.1 (0.9-2) Lipase 18 (11-82) U/L Procalcitonin < 0.02 (0-0.5) ng/ml Adenovirus (PCR) Not Detected (NotDetected) B. pertussis DNA (PCR) Not Detected (NotDetected) B.parapertussis DNA PCR Not Detected (NotDetected) C. pneumoniae DNA (PCR) Not Detected (NotDetected) Coronavirus OC43 (PCR) Not Detected (NotDetected) Coronavirus HKU1 (PCR) Not Detected (NotDetected) Coronavirus 229E (PCR) Not Detected (NotDetected) SARS-CoV-2 (PCR) Not Detected (NotDetected) Coronavirus NL63 (PCR) Not Detected (NotDetected) Human Metapneumovir PCR Not Detected (NotDetected) Influenza Type A (PCR) Not Detected (NotDetected) Influenza Type B (PCR) Not Detected (NotDetected) M. pneumoniae (PCR) Not Detected (NotDetected) Parainfluenza 1 (PCR) Not Detected (NotDetected) Parainfluenza 2 (PCR) Not Detected (NotDetected) Parainfluenza 3 (PCR) Not Detected (NotDetected) Parainfluenza 4 (PCR) Not Detected (NotDetected) RSV (PCR) Not Detected (NotDetected) Entero/Rhino (PCR) Not Detected (NotDetected) Administered Medications Atorvastatin Calcium (Atorvastatin 10 Mg Tab) 10 mg PO QPM LINK Stop: 11/05/23 20:59 Last Admin: 10/06/23 21:09 Dose: 10 mg Documented By: MARVAP Docusate Sodium (Docusate Sodium 100 Mg Cap) 100 mg PO BID LIKN Stop: 11/05/23 20:59 Last Admin: 10/06/23 21:09 Dose: 100 mg Documented By: KJP Enoxaparin Sodium (Enoxaparin Inj 40 Mg/0.4 Ml Syr) 40 mg SQ Q24H LINK Stop: 11/05/23 20:59 Last Admin: 10/06/23 21:09 Dose: 40 mg Documented By: MARVAP Ferrous Sulfate (Ferrous Sulfate 325 Mg Tab) 325 mg PO MoWeFr@0900 LINK Stop: 11/05/23 17:59 Last Admin: 10/06/23 18:20 Dose: 325 mg Documented By: TMP Lisinopril (Lisinopril 10 Mg Tab) 10 mg PO QPM LINK Stop: 11/05/23 20:59 Last Admin: 10/06/23 21:08 Dose: 10 mg Documented By: MARVAP Potassium Chloride (Potassium Chloride 10 Meq Tabcr) 10 meq PO BID LINK Stop: 11/05/23 20:59 Last Admin: 10/06/23 21:09 Dose: 10 meq Documented By: MARVAP Discontinued Medications Albuterol (Albut/Ipratrop 3mg/0.5mg Neb 3 Ml Vial) 3 ml NEB NOW STA; Protocol Stop: 10/06/23 13:04 Last Admin: 10/06/23 13:13 Dose: 3 ml Documented By: RICHK Albuterol (Albut/Ipratrop 3mg/0.5mg Neb 3 Ml Vial) 3 ml INH Q6R [facility] Stop: 11/05/23 18:59 Last Admin: 10/07/23 00:28 Dose: Not Given Documented By: Admin: 10/06/23 19:57 Dose: 3 ml Documented By: ELANAO Furosemide (Furosemide 40 Mg/4 Ml Vial) 40 mg IV NOW STA Stop: 10/06/23 15:10 Last Admin: 10/06/23 16:31 Dose: 40 mg Documented By: SAMEER Ioversol (Optiray 320 125ml) 120 ml IV ONCE ONE Stop: 10/06/23 13:20 Last Admin: 10/06/23 13:20 Dose: 120 ml Documented By: EDY Methylprednisolone (Methylprednisolone 125 Mg/2 Ml Vial) 125 mg IV NOW STA Stop: 10/06/23 13:04 Last Admin: 10/06/23 13:13 Dose: 125 mg Documented By: TANIKA Imaging Data Radiologist's Impression: Chest X-Ray 10/06/23 12:02 XR chest 1V portable CLINICAL HISTORY: Chest pain, nonspecific TECHNIQUE: Single frontal radiograph of the chest was obtained. Comparison: Comparison is made to chest radiograph 09/27/2023 FINDINGS: No lines and tubes are seen. Calcified aortic knob is seen. Reticular interstitial opacities are seen. No evidence of pleural effusion or pneumothorax. IMPRESSION: No acute chest disease. ACT 112: Negative or not required by law. Electronically signed by: Anand Aquino M.D. 10/06/2023 1:28 PM Chest CTA 10/06/23 13:03 CT ANGIOGRAM OF THE CHEST CLINICAL HISTORY: Dyspnea. Hypoxia. COMPARISON STUDY: Chest CT dated 01/16/2021. Chest x-ray dated 10/06/2023. TECHNIQUE: Following the IV administration of 120 cc of Optiray 320, CT angiogram of the chest was performed from the upper abdomen to the thoracic inlet utilizing the pulmonary embolus protocol. Images are reviewed in the axial, sagittal, and coronal planes. 3-D MIPS images are created and assessed. IV contrast was administered without complication. A dose lowering technique was utilized adhering to the principles of ALARA. CT DOSE: 1147.75 mGy.cm FINDINGS: Thyroid: Mildly enlarged and heterogeneous. Thoracic aorta: There is atherosclerotic calcification of the thoracic aorta, which is normal in caliber and demonstrates standard 3-vessel arch anatomy. No dissection is seen. Pulmonary vasculature: The pulmonary trunk is normal in caliber. There are no filling defects identified in main, lobar, or segmental pulmonary branches to suggest pulmonary embolus. Heart: The heart is top normal in size and without pericardial effusion. The coronary arteries and mitral annulus are densely calcified. Lungs and pleural spaces: Emphysematous change is noted. Subpleural reticulation is seen throughout both lungs. There is scarring/fibrosis at both lung bases. Mild traction bronchiectasis is observed. No honeycombing is seen. No superimposed airspace consolidation or pleural effusion is identified. The trachea and central airways are clear. Scattered calcified granulomas are again noted. Mediastinum: There are calcified mediastinal nodes. No pathologically enlarged lymph nodes are seen. Arelis: There are calcified right hilar nodes. No hilar adenopathy is identified. Axillae: There is no axillary lymphadenopathy. Upper abdomen: Calcified gallstones are noted. There is a small hiatal hernia. Calcific granulomas are present in the spleen. Skeletal structures: The skeletal structures are osteopenic. No lytic or blastic bony lesions are seen. Degenerative change is noted in the shoulders and spine. IMPRESSION: 1. There is no evidence of pulmonary embolus in the main, lobar, or segmental pulmonary arteries. 2. There is no airspace consolidation typical for pneumonia or pleural effusion. 3. Emphysema, likely with superimposed changes of chronic interstitial lung disease. This is similar to previous. 4. Cholelithiasis. 5. Additional findings as above. ACT 112: Negative or not required by law. Electronically signed by: Gonzalo Schuster M.D. 10/06/2023 2:02 PM Discharge Plan Visit Data Chief Complaint: Referred by Doctor Stated Complaint: OXYGEN AND BLOOD COUNT LOW ED Provider: Rigo Perry Discharge Problem: Acute hypoxic respiratory failure, ILD (interstitial lung disease), Leg swelling, COPD exacerbation Patient Disposition: Admitted As Inpatient Discharge Instructions Interventions: ED Discharge Assessment Last Done: 10/06/23 17:13
[2023-10-06] MEDS: methylPREDNISolone 125 MG/2 ML VIAL IV STA (13:13)
[2023-10-06] MEDS: ALBUT/IPRATROP 3MG/0.5MG NEB 3 ML VIAL NEB STA (13:13)
[2023-10-06 13:15] LABS: Adenovirus PCR Not Detected (NotDetected); Bordetella parapertussis PCR Not Detected (NotDetected); Bordetella pertussis PCR Not Detected (NotDetected); Chlamydia pneumoniae PCR Not Detected (NotDetected); Coronavirus 229E PCR Not Detected (NotDetected); Coronavirus CoV-2 (COVID19)PCR Not Detected (NotDetected); Coronavirus HKU1 PCR Not Detected (NotDetected); Coronavirus NL63 PCR Not Detected (NotDetected); Coronavirus OC43PCR Not Detected (NotDetected); Human Metapneumovirus PCR Not Detected (NotDetected); Influenza A PCR Not Detected (NotDetected); Influenza B PCR Not Detected (NotDetected); Mycoplasma pneumoniae PCR Not Detected (NotDetected); Parainfluenza Virus 1 PCR Not Detected (NotDetected); Parainfluenza Virus 2 PCR Not Detected (NotDetected); Parainfluenza Virus 3 PCR Not Detected (NotDetected); Parainfluenza Virus 4 PCR Not Detected (NotDetected); Respiratory Syncytial VirusPCR Not Detected (NotDetected); Rhinovirus/Enterovirus PCR Not Detected (NotDetected)
[2023-10-06] MEDS: OPTIRAY 320 125ml IV ONE (13:20)
--- NOTE | 2023-10-06 13:31 | XRay Report ---
XR chest 1V portable CLINICAL HISTORY: Chest pain, nonspecific TECHNIQUE: Single frontal radiograph of the chest was obtained. Comparison: Comparison is made to chest radiograph 09/27/2023 FINDINGS: No lines and tubes are seen. Calcified aortic knob is seen. Reticular interstitial opacities are seen . No evidence of pleural effusion or pneumothorax. IMPRESSION: No acute chest disease. ACT 112: Negative or not required by law. Electronically signed by: Anand Aquino M.D. 10/06/2023 1:28 PM
--- NOTE | 2023-10-06 14:03 | CT Scan Report ---
CT ANGIOGRAM OF THE CHEST CLINICAL HISTORY: Dyspnea. Hypoxia. COMPARISON STUDY: Chest CT dated 01/16/2021. Chest x-ray dated 10/06/2023. TECHNIQUE: Following the IV administration of 120 cc of Optiray 320, CT angiogram of the chest was pe rformed from the upper abdomen to the thoracic inlet utilizing the pulmonary embolus protocol. Images are reviewed in the axial, sagittal, and coronal planes. 3-D MIPS images are created and assessed. I V contrast was administered without complication. A dose lowering technique was utilized adhering to the principles of ALARA. CT DOSE: 1147.75 mGy.cm FINDINGS: Thyroid: Mildly enlarged and heterogeneous. Thoracic aorta: There is atherosclerotic calcification of the thoracic aorta, which is normal in rafy siobhan and demonstrates standard 3-vessel arch anatomy. No dissection is seen. Pulmonary vasculature: The pulmonary trunk is normal in caliber. There are no filling defects identif ied in main, lobar, or segmental pulmonary branches to suggest pulmonary embolus. Heart: The heart is top normal in size and without pericardial effusion. The coronary arteries and mi tral annulus are densely calcified. Lungs and pleural spaces: Emphysematous change is noted. Subpleural reticulation is seen throughout b oth lungs. There is scarring/fibrosis at both lung bases. Mild traction bronchiectasis is observed. N o honeycombing is seen. No superimposed airspace consolidation or pleural effusion is identified. The trachea and central airways are clear. Scattered calcified granulomas are again noted. Mediastinum: There are calcified mediastinal nodes. No pathologically enlarged lymph nodes are seen. Arelis: There are calcified right hilar nodes. No hilar adenopathy is identified. Axillae: There is no axillary lymphadenopathy. Upper abdomen: Calcified gallstones are noted. There is a small hiatal hernia. Calcific granulomas ar e present in the spleen. Skeletal structures: The skeletal structures are osteopenic. No lytic or blastic bony lesions are see n. Degenerative change is noted in the shoulders and spine. IMPRESSION: 1. There is no evidence of pulmonary embolus in the main, lobar, or segmental pulmonary arteries. 2. There is no airspace consolidation typical for pneumonia or pleural effusion. 3. Emphysema, likely with superimposed changes of chronic interstitial lung disease. This is similar to previous. 4. Cholelithiasis. 5. Additional findings as above. ACT 112: Negative or not required by law. Electronically signed by: Gonzalo Schuster M.D. 10/06/2023 2:02 PM
--- NOTE | 2023-10-06 15:26 | History & Physical Report ---
Date of Service October 06, 2023 Assessment & Plan (1) Acute hypoxic respiratory failure: Plan: Patient's SpO2 dropped into the 80% range prior to getting an endoscopy on 10/05 Not on supplemental oxygen at baseline Hx of ILD, COPD/emphysema She does endorse worsening HAYNES x 2 years Chest CTA without pulmonary embolism BioFire negative BNP WNL PCT WNL Echocardiogram ordered, pending Continuous pulse oximetry with supplemental oxygen as needed to maintain SpO2 89-92% Suspect ILD progression; DDx includes COPD exacerbation, new onset CHF A.m. CBC, BMP, mag (2) COPD exacerbation: Plan: DuoNeb 3mL Q6R Solu-Medrol 40 mg IV QAM Incentive telemetry, flutter valve (3) ILD (interstitial lung disease): Plan: Last PFTs in May 2022; mild restrictive lung disease Plan Disposition: Admit to MedSurg telemetry DNR/DNI Heart healthy, low-sodium diet (1800 mL fluid restriction) VTE PPx: Lovenox 40 mg SQ q24h History of Present Illness Chief Complaint: Hypoxia, referred by Doctor Primary Care Provider: Raheem Garibay DO Garrick is a pleasant 82-year-old female with PMH of HLD, ILD, COPD, depression, CKD stage III, hypercalcemia, restrictive lung disease, GERD, and sigmoid diverticulitis. She was referred from [facility] endoscopy on 10/05 for hypoxia in the 80% SpO2 range. Patient reports she has been having ongoing HAYNES for the past 2 years, but has progressively been getting worse. That said, she notes it is no different today than it was the past few months. She denies SOB at rest, but reports she does have HAYNES when walking to the bathroom. SOB is not worse when she lies flat on her back. Not positional or pleuritic. She does not use supplemental oxygen at home or CPAP at night. No recent change in weight. She does not watch her salt intake, but denies recent leg swelling. No history of CHF to her knowledge she. She does have a history of COPD/emphysema and used to follow with Dr. Gonsalves (pulmonology). She has been using her rescue inhaler, 1-2 times daily for the HAYNES. Patient did not take her regular morning medications today. The only recent change in medication was that she started Singulair 1 week ago. In terms of sick contacts, she was around her sister last week, who was reportedly sick. She denies smoking, tobacco use, and alcohol use. Patient's SpO2 is 92% on 3L NC at time of admission; vitals otherwise stable. ED course: Solu-Medrol 125 mg IV DuoNeb 3 mL Lasix 40 mg IV ROS: Patient endorses dry cough (ongoing), and HAYNES. Patient denies fever, chills, night-sweats, dizziness/lightheadedness with walking, LEPE, chest pain, chest palpitations, SOB at rest, hemoptysis, pleuritic CP, abdominal pain, N/V/D, changes in urinary/bowel habits, burning with urination, blood in the urine/stool, or numbness/tingling/swelling in the arms or legs. Allergies Allergy/AdvReac Type Severity Reaction Status Date / Time tiotropium Allergy Severe Spirivia Unverified 09/24/23 13:56 [From Spiriva with Respimat, HandiHaler] pt hasn't had the handihaler metoclopramide Allergy Intermediate COULDN'T Verified 09/24/23 13:56 EAT PLASTIC AdvReac Mild IRRITATION Uncoded 09/24/23 13:56 ON CONTACT WITH OXYGEN APPLIED ON NOSE Spiriva AdvReac Itching Uncoded 09/24/23 13:56 Home Medications Medication Instructions Recorded Confirmed Type atorvastatin 10 mg tablet 10 mg PO QPM #90 tabs 02/03/23 10/06/23 Rx fluoxetine 40 mg capsule (Prozac) 40 mg PO QAM #90 caps 02/03/23 10/06/23 Rx furosemide 40 mg tablet (Lasix) 40 mg PO QAM #90 tabs 02/03/23 10/06/23 Rx lisinopril 10 mg tablet 10 mg PO QPM #90 tabs 02/03/23 10/06/23 Rx acetaminophen 325 mg tablet 650 mg (2 x 325 mg) PO Q4H PRN 07/01/23 10/06/23 Rx pain #30 tabs diclofenac potassium 50 mg tablet 50 mg PO BID #180 tabs 07/30/23 10/06/23 Rx docusate sodium 100 mg capsule 100 mg PO BID 90 days #180 caps 07/30/23 10/06/23 Rx montelukast 10 mg tablet 10 mg PO DAILY #30 tabs 09/24/23 10/06/23 Rx (Singulair) potassium chloride 10 mEq 10 meq PO BID #180 tabs 09/27/23 10/06/23 Rx tablet,extended release albuterol sulfate 90 mcg/actuation 2 puff inhalation Q6H PRN 09/30/23 10/06/23 Rx aerosol inhaler shortness of breath or wheezing #8.5 grams omeprazole 20 mg capsule,delayed 20 mg PO QAM #90 caps 09/30/23 10/06/23 Rx release ferrous sulfate 325 mg (65 mg 325 mg PO .WED,WED,Wednesday10/06/23 10/06/23 History iron) tablet Past Med/Surg History Problem List (Updated 10/06/23 @ 16:08 by Mushtaq Plasencia PA-C) COPD exacerbation COPD (chronic obstructive pulmonary disease) Acute hypoxic respiratory failure Acute blood loss anemia GERD (gastroesophageal reflux disease) Sigmoid diverticulitis Class 2 obesity due to excess calories with body mass index (BMI) of 36.0 to 36.9 in adult Leg swelling (Acute) Restrictive lung disease Hypercalcemia (Chronic) CKD (chronic kidney disease) stage 3, GFR 30-59 ml/min (Chronic) HLD (hyperlipidemia) (Chronic) Elevated fasting glucose (Chronic) Alveolar emphysema of lung ILD (interstitial lung disease) (Chronic) Ex-smoker Snoring Exertional shortness of breath Abnormal PFTs (pulmonary function tests) Depression (Chronic) Medical History GERD (gastroesophageal reflux disease) Uterine fibroid Depression Migraine Hypertension Hyperlipidemia Spastic esophagus Surgical History S/P dilatation of esophageal stricture History of hysterectomy History of bilateral tubal ligation History of esophagogastroduodenoscopy (EGD) History of colonoscopy History of tooth extraction Hx of eye surgery RT EYE LASER History of cataract surgery RT/LEFT Bone spur RT/LEFT History of repair of rotator cuff LEFT History of carpal tunnel release RT History of total knee replacement RT History of arthroscopy RT History of total abdominal hysterectomy and bilateral salpingo-oophorectomy Family History Other Hypertension Denies family history of Tuberculosis Heart disease Allergies Emphysema of lung Lung disease Cancer Asthma Social History (Updated 07/30/23 @ 10:47 by PETER Guerrero) Smoking Status: Former smoker Tobacco Type: Cigarettes Cigarettes Per Day: QUIT OVER 20 YEARS AGO; Second Hand Exposure: No; Do You Dip or Chew Tobacco: No; Hx Alcohol Use: No Hx Substance Use: No Preferred Language: Chinese Communication Ability: Effective Visual Impairment: No Limitations 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 Beliefs That Will Affect Care: None marital status: Current Living Situation: Spouse current occupational status: retired Feels Safe at Home: Yes Diet: low carbohydrate caffeine: Yes Dental Care, Regularly: No Physical Activity Frequency: Does not Exercise Seatbelt Use: always Assistive Devices: None Review of Systems Review of Systems: See HPI above Physical Exam Physical Exam: General: no acute distress; pleasant affect; non-toxic appearing; well- nourished; cooperative; SpO2 92% on 3 L NC HEENT: normocephalic, atraumatic; no scleral icterus; PERRLA; moist mucus membrane; vision and hearing grossly intact Neck: supple; no lymphadenopathy; trachea midline Skin: warm, dry without signs of tenting; no cyanosis; no rashes, bruising, lesions, or erythema noted CV: chest wall NTP; RRR; S1/S2 normal; no murmurs/rubs/gallops; pulses intact and symmetric at radial, DP, and PT Lungs: no acute respiratory distress; symmetrical chest wall expansion; clear breath sounds across all lung mcmahon w/o adventitious sounds; no wheezing ABD: Soft, NTP; BS present; no rebound/guarding; no distention MSK: no tics or fasciculations; no edema noted in the LEs b/l, nonerythematous Neuro: A&Ox3; normal mood and affect; fluent speech; no focal deficits; sensation grossly intact in the LEs b/l Results & Data Results & Data Vital Signs (Past 12 Hours) Vital Signs Temp Pulse Pulse Resp BP BP Pulse Ox 10/06/23 14:30 91 H 18 122/76 92 10/06/23 14:00 64 20 124/89 95 10/06/23 12:41 95 H 22 136/65 93 10/06/23 12:36 96 H 10/06/23 12:18 93 H 22 91 10/06/23 11:52 36.9 C 102 H 16 151/75 H 77 L O2 Del Method O2 Flow Rate 10/06/23 14:30 10/06/23 14:00 Nasal Cannula 3 10/06/23 12:41 Nasal Cannula 3 10/06/23 12:36 10/06/23 12:18 Nasal Cannula 3 10/06/23 11:52 Room Air Laboratory Results Abnormal lab results 10/06/23 10/06/23 Range/Units 12:07 12:37 WBC 10.88 H (4.8-10.8) K/ul RBC 3.85 L (4.20-5.40) M/uL Hgb 11.2 L (12.0-16.0) g/dl Hct 35.5 L (37.0-47.0) % MCHC 31.5 L (32.0-36.0) g/dL RDW Std Deviation 50.2 H (36.4-46.3) fL RDW Coeff of Binh 14.8 H (11.5-14.5) % Neut # (Auto) 7.33 H (1.40-6.50) K/uL Sharkey # (Auto) 1.21 H (0.11-0.59) K/uL VBG pCO2 37 L (38-50) mmHg Glucose 109 H (70-99(Fasting)) mg/dl Diagnostic Findings Chest X-Ray 10/06/23 12:02 XR chest 1V portable CLINICAL HISTORY: Chest pain, nonspecific TECHNIQUE: Single frontal radiograph of the chest was obtained. Comparison: Comparison is made to chest radiograph 09/27/2023 FINDINGS: No lines and tubes are seen. Calcified aortic knob is seen. Reticular interstit ial opacities are seen. No evidence of pleural effusion or pneumothorax. IMPRESSION: No acute chest disease. ACT 112: Negative or not required by law. Electronically signed by: Anand Aquino M.D. 10/06/2023 1:28 PM Chest CTA 10/06/23 13:03 CT ANGIOGRAM OF THE CHEST CLINICAL HISTORY: Dyspnea. Hypoxia. COMPARISON STUDY: Chest CT dated 01/16/2021. Chest x-ray dated 10/06/2023. TECHNIQUE: Following the IV administration of 120 cc of Optiray 320, CT angiogram of the chest was performed from the upper abdomen to the thoracic inlet utilizing the pulmonary embolus protocol. Images are reviewed in the axial, sagittal, and coronal planes. 3-D MIPS images are created and assessed. IV contrast was administered without complication. A dose lowering technique was utilized adhering to the principles of ALARA. CT DOSE: 1147.75 mGy.cm FINDINGS: Thyroid: Mildly enlarged and heterogeneous. Thoracic aorta: There is atherosclerotic calcification of the thoracic aorta, which is normal in caliber and demonstrates standard 3-vessel arch anatomy. No dissection is seen. Pulmonary vasculature: The pulmonary trunk is normal in caliber. There are no filling defects identified in main, lobar, or segmental pulmonary branches to suggest pulmonary embolus. Heart: The heart is top normal in size and without pericardial effusion. The coronary arteries and mitral annulus are densely calcified. Lungs and pleural spaces: Emphysematous change is noted. Subpleural reticulation is seen throughout both lungs. There is scarring/fibrosis at both lung bases. Mi ld traction bronchiectasis is observed. No honeycombing is seen. No superimposed airspace consolidation or pleural effusion is identified. The trachea and central airways are clear. Scattered calcified granulomas are again noted. Mediastinum: There are calcified mediastinal nodes. No pathologically enlarged lymph nodes are seen. Arelis: There are calcified right hilar nodes. No hilar adenopathy is identified. Axillae: There is no axillary lymphadenopathy. Upper abdomen: Calcified gallstones are noted. There is a small hiatal hernia. Calcific granulomas are present in the spleen. Skeletal structures: The skeletal structures are osteopenic. No lytic or blastic bony lesions are seen. Degenerative change is noted in the shoulders and spine. IMPRESSION: 1. There is no evidence of pulmonary embolus in the main, lobar, or segmental pulmonary arteries. 2. There is no airspace consolidation typical for pneumonia or pleural effusion. 3. Emphysema, likely with superimposed changes of chronic interstitial lung disease. This is similar to previous. 4. Cholelithiasis. 5. Additional findings as above. ACT 112: Negative or not required by law. Electronically signed by: Gonzalo Schuster M.D. 10/06/2023 2:02 PM ECG Additional Comments: ECG revealed NSR at 97 bpm; QTc 485 Code Status & VTE Plan Code Status DNR/DNI VTE Prophylaxis Plan VTE Prophylaxis will be ordered: Yes Supervising Physician Co-Signing Physician Notes Patient seen and examined, chart reviewed, case discussed with Mushtaq Plasencia PA-C and I agree with the assessment and plan as above except as otherwise noted Labs and images reviewed 82-year-old female with past history of hyperlipidemia, ILD, CKD 3, depression, COPD, restrictive lung disease, GERD, diverticulitis who was referred from outpatient endoscopy for hypoxia. She was at endoscopy for a scheduled evaluation following an episode of diverticulitis and was noted at that time to be hypoxic. Patient endorses shortness of breath gradually getting worse but without dyspnea at rest or orthopnea. She has not been on Spiriva due to a high of allergy immediately upon starting this. Nebs continued. Lungs are clear with no wheezing at time of provider evaluation. No crackles/rales; this is following nebs in the ER. Chest CTA shows no PEs, no evidence of pneumonia, and does not show significant pulmonary edema. Procalcitonin is normal and bio fire is negative. ? Progression of underlying restrictive lung disease, was previously diagnosed with COPD although this was not apparent on her spirometry no longer follows with pulmonology, recommend reestablishing. Last PFTs 2022 with mild restrictive lung disease, no obstructive lung disease, moderate decrease in DLCO. Family history of sarcoidosis as well;? Progressive fibrotic disease. Patient also with some component of restriction due to body habitus with BMI of 37; her bicarb is not significantly elevated at 23. Will continue steroids for now and agree with above. She does not have a history of heart failure, is on Lasix for lower extremity swelling but again last echo was with preserved EF and she does not have pulmonary edema on CT or crackles/rales on auscultation. Echo is pending for both evaluation of EF and pulmonary pressure. Agree with above. PG Care Time/CCT Total # of Minutes Spent Total Time Spent with Patient: Total time spent is greater than 50% in coordination of care (as documented) at patient's floor/unit and/or counseling patient: Coding [place] [address] INT INP/OBS CARE 3/75MIN Patient Type Established History Comprehensive Exam Comprehensive Medical Decision Making High Complexity Diagnoses Acute hypoxic respiratory failure J96.01 COPD exacerbation J44.1 ILD (interstitial lung disease) J84.9
--- NOTE | 2023-10-06 16:29 | Electrocardiogram Report ---
Test Reason : Blood Pressure : / mmHG Vent. Rate : 097 BPM Atrial Rate : 097 BPM P-R Int : 174 ms QRS Dur : 084 ms QT Int : 382 ms P-R-T Axes : 055 000 015 degrees QTc Int : 485 ms Normal sinus rhythm Low voltage QRS Borderline ECG When compared with ECG of 28-JUN-2023 08:56, Minimal criteria for Anterior infarct are no longer Present T wave inversion no longer evident in Anterior leads Confirmed by Velasquez Russ ([id number]) on 10/06/2023 4:28:34 PM Referred By: Confirmed By:Velasquez Russ
[2023-10-06] MEDS: FUROSEMIDE 40 MG/4 ML VIAL IV STA (16:31)
[2023-10-06] MEDS ORDERED: ACETAMINOPHEN 325 MG TAB PO PRN (17:35)
[2023-10-06] MEDS ORDERED: ALBUTEROL HFA 8 GM INHALER INH PRN (17:35)
[2023-10-06] MEDS: FERROUS SULFATE 325 MG TAB PO SCH (18:20)
[2023-10-06] MEDS: ALBUT/IPRATROP 3MG/0.5MG NEB 3 ML VIAL INH SCH (19:57)
[2023-10-06] MEDS: lisinopril 10 MG TAB PO SCH (21:08)
[2023-10-06] MEDS: DOCUSATE SODIUM 100 MG CAP PO SCH (21:09)
[2023-10-06] MEDS: POTASSIUM CHLORIDE 10 MEQ TABCR PO SCH (21:09)
[2023-10-06] MEDS: ATORVASTATIN 10 MG TAB PO SCH (21:09)
[2023-10-06] MEDS: ENOXAPARIN INJ 40 MG/0.4 ML SYR SQ SCH (21:09)
[2023-10-07 06:20] LABS: Basophils # (auto) 0.02 K/uL (0.00-0.20); Basophils % (auto) 0.2 %; Hematocrit (blood only) 34.4 % (37.0-47.0); Hemoglobin 11.1 g/dl (12.0-16.0); Immature Granulocytes # (auto) 0.06 K/uL (0.01-0.20); Immature Granulocytes % (auto) 0.5 %; Lymphocytes # (auto) 1.29 K/uL (1.20-3.40); Lymphocytes % (auto) 11.8 %; Mean Corpuscular Hemoglobin 29.3 pg (25.0-34.0); Mean Corpuscular Hgb Conc 32.3 g/dL (32.0-36.0); Mean Corpuscular Volume 90.8 fL (80.0-100.0); Mean Platelet Volume 11.7 fL (9.4-12.4); Monocytes # (auto) 1.17 K/uL (0.11-0.59); Monocytes % (auto) 10.7 %; Neutrophils # (auto) 8.39 K/uL (1.40-6.50); Neutrophils % (auto) 76.8 %; Platelet Count 301 K/uL (130-400); RDW Coefficient of Variation 14.5 % (11.5-14.5); RDW Standard Deviation 48.2 fL (36.4-46.3); Red Blood Count 3.79 M/uL (4.20-5.40); White Blood Count 10.93 K/ul (4.8-10.8)
[2023-10-07 07:04] LABS: Anion Gap 8 (3-11); BUN Creatinine Ratio 16.5 (10-20); Blood Urea Nitrogen 19 mg/dl (6-23); Calcium 10.3 mg/dl (8.6-10.3); Carbon Dioxide 24 mmol/L (21-32); Chloride 102 mmol/L (98-107); Creatinine Clr Calc Pharmacy 40.5 ml/min; Glucose 123 mg/dl (70-99(Fasting)); Sodium 134 mmol/L (136-145)
[2023-10-07] MEDS: ALBUT/IPRATROP 3MG/0.5MG NEB 3 ML VIAL INH SCH (07:10)
--- NOTE | 2023-10-07 08:00 | Hospitalist Progress Note ---
Date of Service October 07, 2023 Assessment & Plan (1) Acute hypoxic respiratory failure: Plan: Patient's SpO2 dropped into the 80% range prior to getting an endoscopy on 10/05 Not on supplemental oxygen at baseline patient does meet requirements for supplemental oxygen however does not wish to go home on this understands the risk of this. Hx of ILD, COPD/emphysema She does endorse worsening HAYNES x 2 years Chest CTA without pulmonary embolism, no pneumonia BioFire negative BNP WNL PCT WNL Echocardiogram echocardiogram shows preserved ejection fraction no regional wall motion abnormalities mild concentric LVH Suspect ILD progression; DDx includes COPD exacerbation, iv steroids, nebulized medicines Last PFTs in May 2022; mild restrictive lung disease Plan DNR/DNI Heart healthy, low-sodium diet (1800 mL fluid restriction) VTE PPx: Lovenox 40 mg SQ q24h Admission and Anticipated Discharge Date Admission Date: October 06, 2023 Subjective Very pleasant lady wants to go home at all cost. She wants to go home without oxygen although she does meet requirements for oxygen by two-step testing. She is a longstanding history of tobacco but quit many years ago. Likely her hypoxia is likely resultant of COPD exacerbation. She is tolerant of steroids and we changed her over to umeclidinium vilanterol Physical Exam Physical Exam: Pleasant awake alert speaking full sentences No coughing or wheezing lungs with poor air movement but no focal loss or wheezes Extremities are with trace edema Results & Data Results & Data Vital Signs (Past 12 Hours) Vital Signs Temp Pulse Pulse Resp BP Pulse Ox O2 Del Method 10/07/23 07:10 69 16 95 Nasal Cannula 10/07/23 03:39 98.4 F 93 H 16 112/74 98 Nasal Cannula 10/07/23 01:17 Nasal Cannula 10/06/23 23:37 82 10/06/23 23:21 98.2 F 84 18 96/53 L 93 Nasal Cannula 10/06/23 20:00 93 H 18 92 Nasal Cannula O2 Flow Rate 10/07/23 07:10 3 10/07/23 03:39 3 10/07/23 01:17 3 10/06/23 23:37 10/06/23 23:21 3 10/06/23 20:00 3 Laboratory Results Reviewed CBC reviewed chemistry PG Care Time/CCT Total # of Minutes Spent Total Time Spent with Patient: Total time spent is greater than 50% in coordination of care (as documented) at patient's floor/unit and/or counseling patient: Coding Level of Care Code 60942 SUB INP/OBS CARE 235MIN Diagnoses Acute hypoxic respiratory failure J96.01
[2023-10-07] MEDS: FLUoxetine HCL 20 MG CAP PO SCH (08:19)
[2023-10-07] MEDS: PANTOprazole 40 MG TAB PO SCH (08:19)
[2023-10-07] MEDS: methylPREDNISolone 40 MG in SYRINGE 0 ML IV SCH (08:20)
[2023-10-07] MEDS: FUROSEMIDE 40 MG/4 ML VIAL IV SCH (08:22)
--- NOTE | 2023-10-07 09:54 | XCELERA ---
[id number] \\[email or web address]\[id number]
[2023-10-07] MEDS: FLUTICASONE/VILANTEROL 200/25MCG 14 PUFFS/INHALER INH SCH (13:29)
[2023-10-07] MEDS: PNEUMOCOCCAL VACCINE (PCV20) 20-VAL CONJ-DIP CRM/PF 0.5 ML SYR IM ONE (20:26)
[2023-10-08 06:16] LABS: Basophils # (auto) 0.05 K/uL (0.00-0.20); Basophils % (auto) 0.4 %; Eosinophils # (auto) 0.04 K/uL (0.00-0.50); Eosinophils % (auto) 0.4 %; Hematocrit (blood only) 33.5 % (37.0-47.0); Hemoglobin 10.6 g/dl (12.0-16.0); Immature Granulocytes # (auto) 0.07 K/uL (0.01-0.20); Immature Granulocytes % (auto) 0.6 %; Lymphocytes # (auto) 1.93 K/uL (1.20-3.40); Lymphocytes % (auto) 17.1 %; Mean Corpuscular Hemoglobin 29.2 pg (25.0-34.0); Mean Corpuscular Hgb Conc 31.6 g/dL (32.0-36.0); Mean Corpuscular Volume 92.3 fL (80.0-100.0); Mean Platelet Volume 11.8 fL (9.4-12.4); Monocytes # (auto) 1.42 K/uL (0.11-0.59); Monocytes % (auto) 12.6 %; Neutrophils # (auto) 7.79 K/uL (1.40-6.50); Neutrophils % (auto) 68.9 %; Platelet Count 290 K/uL (130-400); RDW Coefficient of Variation 14.6 % (11.5-14.5); RDW Standard Deviation 49.4 fL (36.4-46.3); Red Blood Count 3.63 M/uL (4.20-5.40)
[2023-10-08 06:33] LABS: BUN Creatinine Ratio 22.8 (10-20); Calcium 10.6 mg/dl (8.6-10.3); Creatinine Clr Calc Pharmacy 37.8 ml/min; Est GFR (Non-African American) 40.5 ml/min; Potassium 4.3 mmol/L (3.5-5.1)
--- NOTE | 2023-10-08 17:41 | Discharge Summary ---
Discharge Summary Date of Service October 08, 2023 Principal Dx & Hospital Course #1 = Principal Diagnosis (1) Acute hypoxic respiratory failure: Patient's SpO2 dropped into the 80% range prior to getting an endoscopy on 10/05 Not on supplemental oxygen at baseline patient does meet requirements for supplemental oxygen with exertion Hx of ILD, COPD/emphysema will be DC on disease modifying medicines, prendisone taper and umeclidium vilanterol, oxygen and recommend follow up with pulmonary med Chest CTA without pulmonary embolism, no pneumonia BioFire negative BNP WNL PCT WNL Echocardiogram echocardiogram shows preserved ejection fraction no regional wall motion abnormalities mild concentric LVH Suspect ILD progression; DDx includes COPD exacerbation, iv steroids, nebulized medicines Last PFTs in May 2022; mild restrictive lung disease Plan DNR/DNI Heart healthy, low-sodium diet (1800 mL fluid restriction) Notes For Next Care Provider will need follow up with pulmonary med may benefit from allergy testing for ipratropium family as pt says had reaction to spirva Admission HPI Per Admitting Provider Garrick is a pleasant 82-year-old female with PMH of HLD, ILD, COPD, depression, CKD stage III, hypercalcemia, restrictive lung disease, GERD, and sigmoid diverticulitis. She was referred from [facility] endoscopy on 10/05 for hypoxia in the 80% SpO2 range. Patient reports she has been having ongoing HAYNES for the past 2 years, but has progressively been getting worse. That said, she notes it is no different today than it was the past few months. She denies SOB at rest, but reports she does have HAYNES when walking to the bathroom. SOB is not worse when she lies flat on her back. Not positional or pleuritic. She does not use supplemental oxygen at home or CPAP at night. No recent change in weight. She does not watch her salt intake, but denies recent leg swelling. No history of CHF to her knowledge she. She does have a history of COPD/emphysema and used to follow with Dr. Gonsalves (pulmonology). She has been using her rescue inhaler, 1-2 times daily for the HAYNES. Patient did not take her regular morning medications today. The only recent change in medication was that she started Singulair 1 week ago. In terms of sick contacts, she was around her sister last week, who was reportedly sick. She denies smoking, tobacco use, and alcohol use. Patient's SpO2 is 92% on 3L NC at time of admission; vitals otherwise stable. ED course: Solu-Medrol 125 mg IV DuoNeb 3 mL Lasix 40 mg IV ROS: Patient endorses dry cough (ongoing), and HAYNES. Patient denies fever, chills, night-sweats, dizziness/lightheadedness with walking, LEPE, chest pain, chest palpitations, SOB at rest, hemoptysis, pleuritic CP, abdominal pain, N/V/D, changes in urinary/bowel habits, burning with urination, blood in the urine/stool, or numbness/tingling/swelling in the arms or legs. Discharge Exam Pleasant conversant walking in hallways was not significantly short of breath was hypoxic without symptoms during ambulation. Updated Medication List Medication Instructions Recorded Confirmed Type atorvastatin 10 mg tablet 10 mg PO QPM #90 tabs 02/03/23 10/06/23 Rx fluoxetine 40 mg capsule (Prozac) 40 mg PO QAM #90 caps 02/03/23 10/06/23 Rx furosemide 40 mg tablet (Lasix) 40 mg PO QAM #90 tabs 02/03/23 10/06/23 Rx lisinopril 10 mg tablet 10 mg PO QPM #90 tabs 02/03/23 10/06/23 Rx acetaminophen 325 mg tablet 650 mg (2 x 325 mg) PO Q4H PRN 07/01/23 10/06/23 Rx pain #30 tabs diclofenac potassium 50 mg tablet 50 mg PO BID #180 tabs 07/30/23 10/06/23 Rx docusate sodium 100 mg capsule 100 mg PO BID 90 days #180 caps 07/30/23 10/06/23 Rx montelukast 10 mg tablet 10 mg PO DAILY #30 tabs 09/24/23 10/06/23 Rx (Singulair) potassium chloride 10 mEq 10 meq PO BID #180 tabs 09/27/23 10/06/23 Rx tablet,extended release albuterol sulfate 90 mcg/actuation 2 puff inhalation Q6H PRN 09/30/23 10/06/23 Rx aerosol inhaler shortness of breath or wheezing #8.5 grams omeprazole 20 mg capsule,delayed 20 mg PO QAM #90 caps 09/30/23 10/06/23 Rx release ferrous sulfate 325 mg (65 mg 325 mg PO .MON,WED,Wednesday10/06/23 10/06/23 History iron) tablet fluticasone furoate 200 1 inh inhalation DAILY #1 inhaler 10/07/23 Rx mcg-vilanterol 25 mcg/dose inhalation powder (Breo Ellipta) prednisone 10 mg tablet 10 mg PO DIRECTED #40 tabs 10/07/23 Rx Oxygen Home #3 L 10/08/23 Rx Hospital Stay Data Consultations 10/06/23 15:09 ED Decision to Admit Stat Diagnostic Imagining Performed 10/06/23 13:03 CT angio chest PE protocol Stat Pending Results Patient Have Any Pending Studies at Discharge: No Discharge Instructions Given to Patient (Per Discharging Provider) you have a low oxygen level, likely due to pre existing COPD, you are aware that you should have home oxygen, after testing you only need oxygen when you are walking and sleeping if you feel short of breath at home please return to the hospital for further treatment start new inhaler tonight but it is only once a day Total Time Total Time Spent Total Time Spent (In Minutes): Discharge third Coding Level of Care Code 30116 INP/OBS DISCH >30 MIN Diagnoses Acute hypoxic respiratory failure J96.01
== END 2023-10-08 11:48 | disposition home or self-care (01) | DRG 189 ==
LOC: ED 11:46 → SUATTDRO 15:58 → 2N 15:58

== ENCOUNTER 2024-06-27 12:26 | Observation (INO) ==
--- NOTE | 2024-06-27 12:34 | Emergency Department Note ---
Impression & Plan Elevated troponin, Exertional shortness of breath, ILD (interstitial lung disease), Nausea vomiting and diarrhea, Abnormal ECG, Chronic respiratory failure with hypoxia ED Provider Note NAME: DEE WANG AGE: 83 SEX: F : 1940 ARRIVES VIA: Ambulance INFORMANT: Patient, ED PROVIDER(S): Alessandro Holbrook MD CHIEF COMPLAINT: Nausea vomiting diarrhea, shortness of breath MEDICAL DECISION MAKING: Patient presents due to concern for nausea vomiting diarrhea with known history of end-stage lung disease. Patient also with associated shortness of breath. IV was established and blood work was obtained. Patient went small amount of IV fluids as well as IV Zofran. Upon reassessment the patient was feeling improved. Patient's kidney function is unremarkable. Troponin is elevated which is new from before and the patient does have EKG changes. No active chest pain at the bedside. BioFire negative. Patient typically on 6 L but is requiring 10 L nasal on oxy mask. I did speak the on-call hospitalist service Dr. Naranjo and the patient was admitted to the medicine service. Critical Care: I have personally spent 35 minutes of critical care time in direct management of this patient. This includes bedside care, interpretation of diagnostic studies, and testing, discussion with consultants, patient, and family members, and other require inpatient management activities. This 35 minutes is in excess of all separately billable procedures. Discussion w/ other healthcare providers: Dr. Naranjo inpatient medicine service Prior /Outside records reviewed: none Differential diagnosis: Gastroenteritis, food borne illness, infection, appendicitis, diverticulitis, inflammatory bowel disease, obstruction among others were considered. Diagnostics, as interpreted by me: ECG: Normal sinus rhythm, rate of 100, normal intervals, normal axis, diffuse T wave inversions in the anterior laterally as well as inferior leads. T wave inversion in lead III appears to be old but the more diffuse anterior and lateral T wave versions are new from comparison October 06, 2023 Cardiac monitoring: An order was placed for continuous cardiac monitoring. The monitor shows a rate of 95 with sinus rhythm. Patient was placed on pulse oximetry Medical decision rules: None Imaging studies: I informally interpreted the patient's chest x-ray does not show obvious pneumonia or pneumothorax with formal report to follow. HPI:Patient presents due to concern for nausea vomiting and diarrhea. Patient states that this began around 2 AM this morning. Patient states that she does feel slightly improved compared to initially. Known history of lung disease and is on chronic oxygen at all times. Patient denies any cough or fever. Patient denies any chest pains. The patient states that she did feel little bit short of breath this morning although at rest she feels okay. Patient denies any significant leg swelling. No calf pain no recent surgeries or procedures or hospitalizations and no recent prolonged car plane travel. Patient denies any known sick contacts. No changes in diet and the patient denies any untreated stream or well water or recent antibiotic use. PAST MEDICAL HISTORY: See Below PAST SURGICAL HISTORY: See Below SOCIAL HISTORY: See Below HOME MEDICATIONS: See Below ALLERGIES: See Below VITALS: See Below PHYSICAL EXAMINATION: GENERAL: NAD, non-toxic. Oxy mask in place. EYE EXAM: Normal conjunctiva. PERRL, no anisocoria and EOM's grossly intact w/o pain. OROPHARYNX: Dry mucus membranes, grossly normal dentition. NECK: Trachea midline, no stridor. Supple, no nuchal rigidity, no adenopathy, non-tender. No signs of meningismus. FROM of the neck with good chin to chest and neck extension. LUNGS: Clear to auscultation. Normal chest wall mechanics. HEART: NSR, no MRG. ABDOMEN: Abdomen soft, non-tender, no masses, no rebound or guarding. BACK: No CVA TTP. SKIN: No rashes and no bruising. UPPER EXTREMITIES: Upper extremities are grossly normal. LOWER EXTREMITIES: Grossly normal, no edema. NEURO EXAM: A&O x3, cranial nerves II-XII grossly intact, normal speech, moves all 4 extremities. Past Med/Surg History Problem List (Updated 06/30/24 @ 10:52 by Alessandro Holbrook MD) Abnormal ECG (Acute) Nausea vomiting and diarrhea (Acute) Elevated troponin (Acute) Elevated troponin Nausea vomiting and diarrhea Iron deficiency anemia Chronic respiratory failure with hypoxia (Acute) COPD exacerbation (Acute) COPD (chronic obstructive pulmonary disease) Acute hypoxic respiratory failure (Acute) Acute blood loss anemia Sigmoid diverticulitis Class 2 obesity due to excess calories with body mass index (BMI) of 36.0 to 36.9 in adult Leg swelling (Acute) Restrictive lung disease Hypercalcemia (Chronic) CKD (chronic kidney disease) stage 3, GFR 30-59 ml/min (Chronic) HLD (hyperlipidemia) (Chronic) Elevated fasting glucose (Chronic) Alveolar emphysema of lung ILD (interstitial lung disease) (Chronic) Ex-smoker Snoring Exertional shortness of breath (Acute) Abnormal PFTs (pulmonary function tests) GERD (gastroesophageal reflux disease) Depression (Chronic) Medical History Anemia Hx of acute respiratory failure 10/08/23, brought to [place] ER after her oxygen sats dropped into the 80's prior to her endoscopy with PSH, send home on supplemental oxygen. Hx of renal calculi no sx. Chronic kidney disease, stage 3 Restrictive lung disease ILD (interstitial lung disease) History of COVID-19 2020, not hosp; lungs are scarred and "slight" enlargement of heart GERD (gastroesophageal reflux disease) Exertional shortness of breath Alveolar emphysema of lung COPD (chronic obstructive pulmonary disease) f/u dr. [place]ved[place], [place]; PFT 11/07 or 11/08 On home oxygen therapy 3L with activity and at HS. Depression Migraine Hypertension Hyperlipidemia Spastic esophagus Surgical History Hx of foot surgery bone spur removed from bilat. feet S/P dilatation of esophageal stricture History of bilateral tubal ligation History of esophagogastroduodenoscopy (EGD) History of colonoscopy History of tooth extraction Hx of eye surgery rt eye laser History of cataract surgery rt/lt Bone spur RT/LEFT; removed w/sx. History of repair of rotator cuff left History of carpal tunnel release rt History of total knee replacement rt History of arthroscopy rt knee History of total abdominal hysterectomy and bilateral salpingo-oophorectomy Family History Other Hypertension Denies family history of Tuberculosis Heart disease Allergies Emphysema of lung Lung disease Cancer Asthma Social History Smoking Status: Never smoker Tobacco Type: Cigarettes Age Started Using Tobacco: 14; Age Quit Using Tobacco: 56; packs per day: 1; Cigarettes Per Day: QUIT OVER 20 YEARS AGO; Second Hand Exposure: Yes (hx as child); Do You Dip or Chew Tobacco: No; Hx Alcohol Use: No Hx Substance Use: No Preferred Language: Telugu Communication Ability: Effective Visual Impairment: No Limitations Ramp Lead Required: No Beliefs That Will Affect Care: None marital status: Current Living Situation: Spouse current occupational status: retired Feels Safe at Home: Yes Diet: low carbohydrate caffeine: Yes Dental Care, Regularly: No Physical Activity Frequency: Does not Exercise Seatbelt Use: always Assistive Devices: Oxygen - Continuous Allergies Allergies Allergy/AdvReac Type Severity Reaction Status Date / Time tiotropium Allergy Severe Spirivia Verified 06/27/24 14:59 [From Spiriva with Respimat, HandiHaler] pt hasn't had the handihaler metoclopramide Allergy Intermediate COULDN'T Verified 06/27/24 14:59 EAT PLASTIC AdvReac Mild IRRITATION Uncoded 06/27/24 14:59 ON CONTACT WITH OXYGEN APPLIED ON NOSE Home Meds Home Medications Medication Instructions Recorded Confirmed docusate sodium 100 mg capsule 100 mg PO BID PRN Constipation 06/27/24 06/29/24 Previous Rx's Medication Instructions Recorded acetaminophen 325 mg tablet 650 mg (2 x 325 mg) PO Q4H PRN 07/01/23 pain #30 tabs diclofenac potassium 50 mg tablet 50 mg PO BID #180 tabs 07/30/23 potassium chloride 10 mEq 10 meq PO BID #180 tabs 09/27/23 tablet,extended release omeprazole 20 mg capsule,delayed 20 mg PO QAM #90 caps 09/30/23 release oxygen concentrator #1 ea 10/11/23 Portable Oxygen #1 ea 10/20/23 Portable 02 Concentrator #1 ea 10/28/23 Portable O2 concentrator #1 ea 10/28/23 Oxygen Home #1 ea 11/10/23 Incentive Spirometer #1 ea 11/30/23 budesonide 0.25 mg/2 mL suspension 0.25 mg (2 mL) inhalation BID #60 11/30/23 for nebulization mL nebulizers (Aeroneb Go Nebulizer) #1 ea 11/30/23 atorvastatin 10 mg tablet 10 mg PO QPM #90 tabs 02/14/24 lisinopril 10 mg tablet 10 mg PO QPM #90 tabs 02/14/24 Oxygen Home #3 L 03/02/24 fluoxetine 40 mg capsule (Prozac) 40 mg PO QAM #90 caps 04/10/24 furosemide 40 mg tablet (Lasix) 40 mg PO QAM #90 tabs 04/10/24 Portable Oxygen #1 ea 05/03/24 ipratropium 0.5 mg-albuterol 3 mg 3 ml inhalation Q8H PRN shortness 05/19/24 (2.5 mg base)/3 mL nebulization of breath or wheezing #180 mL soln albuterol sulfate 90 mcg/actuation 2 puff inhalation Q6H PRN 05/30/24 aerosol inhaler shortness of breath or wheezing #8.5 grams tiotropium 2.5 mcg-olodaterol 2.5 2 puff inhalation QAM #4 grams 06/14/24 mcg/actuation mist for inhalation (Stiolto Respimat) Auto Titrating CPAP #1 ea 06/26/24 CPAP Supplies #1 ea 06/26/24 Results & Data (ED) Vital Signs Vital Signs - 24 hr 06/27/24 12:34 Temperature 36.6 C Temperature Source Oral Pulse Rate 100 H Respiratory Rate 24 Blood Pressure 103/81 Blood Pressure Mean 88 Pulse Oximetry 97 Oxygen Delivery Method Oxymask Oxygen Flow Rate 10 Sepsis Recent Fever Within 48 Hours No Sepsis New/Unexplained Change in Mental Status N/A Sepsis Action Taken by Nursing No Action Required Home Medications Current Medication List: was personally reviewed by me Laboratory Data Attestation: I reviewed the patient's lab results. 06/28/24 05:32 06/28/24 05:32 Lab Results 06/27/24 06/27/24 06/27/24 Range/Units 12:40 12:45 14:24 WBC 14.27 H (4.8-10.8) K/ul RBC 4.10 L (4.20-5.40) M/uL Hgb 12.4 (12.0-16.0) g/dl Hct 38.4 (37.0-47.0) % MCV 93.7 (80.0-100.0) fL MCH 30.2 (25.0-34.0) pg MCHC 32.3 (32.0-36.0) g/dL RDW Std Deviation 45.1 (36.4-46.3) fL RDW Coeff of Binh 13.2 (11.5-14.5) % Plt Count 263 (130-400) K/uL MPV 12.5 H (9.4-12.4) fL Immature Gran % (Auto) 0.6 % Neut % (Auto) 90.3 % Lymph % (Auto) 3.0 % [place] % (Auto) 5.0 % Eos % (Auto) 0.8 % Baso % (Auto) 0.3 % Neut # (Auto) 12.89 H (1.40-6.50) K/uL Lymph # (Auto) 0.43 L (1.20-3.40) K/uL [place] # (Auto) 0.71 H (0.11-0.59) K/uL Eos # (Auto) 0.12 (0.00-0.50) K/uL Baso # (Auto) 0.04 (0.00-0.20) K/uL Immature Gran # (Auto) 0.08 (0.01-0.20) K/uL Hypersegmented Neuts 1+ Toxic Granulation 1+ Toxic Vacuolation 1+ Sodium 136 (136-145) mmol/L Potassium 4.7 (3.5-5.1) mmol/L Chloride 104 (98-107) mmol/L Carbon Dioxide 26 (21-32) mmol/L Anion Gap 6 (3-11) BUN 24 H (6-23) mg/dl Creatinine 1.03 (0.6-1.2) mg/dl Est Cr Clr Drug Dosing 44.9 ml/min eGFR 53.62 BUN/Creatinine Ratio 23.3 H (10-20) Glucose 114 H (70-99(Fasting)) mg/dl Calcium 10.2 (8.6-10.3) mg/dl Total Bilirubin 0.6 (0.2-1.0) mg/dl AST 25 (13-39) U/L ALT 26 (7-52) U/L Alkaline Phosphatase 86 (34-104) U/L Troponin I High Sens 42.7 H 47.9 H (0-14) pg/ml Total Protein 7.8 (6.0-8.3) gm/dl Albumin 4.1 (3.4-5.0) gm/dl Globulin 3.7 (2.5-4.0) gm/dl Albumin/Globulin Ratio 1.1 (0.9-2) Adenovirus (PCR) Not Detected (NotDetected) B. pertussis DNA (PCR) Not Detected (NotDetected) B.parapertussis DNA PCR Not Detected (NotDetected) C. pneumoniae DNA (PCR) Not Detected (NotDetected) Coronavirus OC43 (PCR) Not Detected (NotDetected) Coronavirus HKU1 (PCR) Not Detected (NotDetected) Coronavirus 229E (PCR) Not Detected (NotDetected) SARS-CoV-2 (PCR) Not Detected (NotDetected) Coronavirus NL63 (PCR) Not Detected (NotDetected) Human Metapneumovir PCR Not Detected (NotDetected) Influenza Type A (PCR) Not Detected (NotDetected) Influenza Type B (PCR) Not Detected (NotDetected) M. pneumoniae (PCR) Not Detected (NotDetected) Parainfluenza 1 (PCR) Not Detected (NotDetected) Parainfluenza 2 (PCR) Not Detected (NotDetected) Parainfluenza 3 (PCR) Not Detected (NotDetected) Parainfluenza 4 (PCR) Not Detected (NotDetected) RSV (PCR) Not Detected (NotDetected) Entero/Rhino (PCR) Not Detected (NotDetected) Administered Medications Discontinued Medications Acetaminophen (Acetaminophen 500 Mg Tab) 1,000 mg PO NOW STA Stop: 06/27/24 15:31 Last Admin: 06/27/24 15:39 Dose: 1,000 mg Documented By: CURRY Acetaminophen (Acetaminophen 325 Mg Tab) 650 mg PO Q4H PRN PRN Reason: pain Stop: 07/27/24 17:15 Last Admin: 06/28/24 08:08 Dose: 650 mg Documented By: Admin: 06/27/24 23:06 Dose: 650 mg Documented By: LMP Atorvastatin Calcium (Atorvastatin 10 Mg Tab) 10 mg PO QPM LINK Stop: 07/27/24 20:59 Last Admin: 06/27/24 20:11 Dose: 10 mg Documented By: LMP Budesonide (Budesonide 0.25 Mg/2 Ml Vial (Pulmicort)) 0.25 mg INH BID LINK Stop: 07/27/24 20:59 Last Admin: 06/28/24 11:18 Dose: Not Given Documented By: EABart Admin: 06/27/24 19:30 Dose: 0.25 mg Documented By: PRASHANTH Fluoxetine HCl (Fluoxetine Hcl 20 Mg Cap) 40 mg PO QAM LINK Stop: 07/28/24 08:59 Last Admin: 06/28/24 08:06 Dose: 40 mg Documented By: BT Heparin Sodium (Porcine) (Heparin Sod 5,000 Unit/0.5 Ml Vial) 5,000 units SQ Q12 LINK Stop: 07/27/24 20:59 Last Admin: 06/28/24 08:07 Dose: 5,000 units Documented By: Admin: 06/27/24 20:12 Dose: 5,000 units Documented By: LMP Sodium Chloride (Nss) 500 mls @ 999 mls/hr IV .Q31M ONE Stop: 06/27/24 13:27 Last Infusion: 06/27/24 13:38 Dose: Infused Documented By: Admin: 06/27/24 13:04 Dose: 999 mls/hr Documented By: QUYNH Ioversol (Optiray 320 125ml) 115 ml IV ONCE ONE Stop: 06/28/24 11:17 Last Admin: 06/28/24 11:16 Dose: 115 ml Documented By: BERNARDINO Lisinopril (Lisinopril 10 Mg Tab) 10 mg PO QPM LINK Stop: 07/27/24 20:59 Last Admin: 06/27/24 20:11 Dose: 10 mg Documented By: LMP Menthol (Cough Drop (Sugar Free) Ruth 24 Ruth/1 Box) 1 ruth BUCCAL NOW STA Stop: 06/27/24 21:05 Last Admin: 06/27/24 21:21 Dose: 1 ruth Documented By: LMP Ondansetron HCl (Ondansetron Inj 2 Mg/Ml 2 Ml Vial) 4 mg IV NOW STA Stop: 06/27/24 12:58 Last Admin: 06/27/24 13:02 Dose: 4 mg Documented By: QUYNH Pantoprazole Sodium (Pantoprazole 40 Mg Tab) 40 mg PO QAM LINK Stop: 07/28/24 08:59 Last Admin: 06/28/24 08:06 Dose: 40 mg Documented By: BT Umeclidinium/Vilanterol (Umeclidinium/Vilanterol 62.5/25mcg 7 Puffs/Inhaler) 1 puffs INH QAM LINK Stop: 07/28/24 08:59 Last Admin: 06/28/24 08:06 Dose: 1 puffs Documented By: BT Imaging Data Radiologist's Impression: Chest X-Ray 06/27/24 13:21 XR chest 1V portable CLINICAL HISTORY: SOB COMPARISON STUDY: 10/06/2023 FINDINGS: No significant interval changes have occurred. Prominent interstitial lung markings are redemonstrated bilaterally. Obscuration of the cardiac apex is once again present. No definite new or progressive disease. No pneumothorax or pleural effusion. The heart and pulmonary vascularity are unchanged. 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 Old right shoulder trauma is evident. IMPRESSION: Stable exam; no acute process identified. ACT 112: Negative or not required by law. Electronically signed by: Florencia Garcia M.D. 06/27/2024 1:46 PM Discharge Plan Visit Data Chief Complaint: Diarrhea Stated Complaint: DIARRHEA, NAUSEA, SOB ED Provider: Alessandro Holbrook Discharge Problem: Elevated troponin, Exertional shortness of breath, ILD (interstitial lung disease), Nausea vomiting and diarrhea, Abnormal ECG, Chronic respiratory failure with hypoxia Patient Disposition: Admitted As Inpatient Discharge Instructions Interventions: ED Discharge Assessment Last Done: 06/27/24 16:36
[2024-06-27] MEDS: ONDANSETRON INJ 2 MG/ML 2 ML VIAL IV STA (13:02)
[2024-06-27] MEDS: SODIUM CHLORIDE 0.9% 500 ML IV ONE (13:04)
[2024-06-27 13:14] LABS: Hematocrit (blood only) 38.4 % (37.0-47.0); Hemoglobin 12.4 g/dl (12.0-16.0); Mean Corpuscular Hemoglobin 30.2 pg (25.0-34.0); Mean Corpuscular Hgb Conc 32.3 g/dL (32.0-36.0); Mean Corpuscular Volume 93.7 fL (80.0-100.0); Mean Platelet Volume 12.5 fL (9.4-12.4); Platelet Count 263 K/uL (130-400); RDW Coefficient of Variation 13.2 % (11.5-14.5); RDW Standard Deviation 45.1 fL (36.4-46.3); White Blood Count 14.27 K/ul (4.8-10.8)
[2024-06-27 13:27] LABS: Albumin Globulin Ratio 1.1 (0.9-2); Albumin Level 4.1 gm/dl (3.4-5.0); BUN Creatinine Ratio 23.3 (10-20); Bilirubin,Total 0.6 mg/dl (0.2-1.0); Calcium 10.2 mg/dl (8.6-10.3); Creatinine Clr Calc Pharmacy 44.9 ml/min; Globulin 3.7 gm/dl (2.5-4.0); Potassium 4.7 mmol/L (3.5-5.1); Total Protein 7.8 gm/dl (6.0-8.3)
[2024-06-27 13:30] LABS: Troponin I High Sensitivity 42.7 pg/ml (0-14)
[2024-06-27 13:42] LABS: Basophils # (auto) 0.04 K/uL (0.00-0.20); Basophils % (auto) 0.3 %; Eosinophils # (auto) 0.12 K/uL (0.00-0.50); Eosinophils % (auto) 0.8 %; Hypersegmented Neutrophils 1+; Immature Granulocytes # (auto) 0.08 K/uL (0.01-0.20); Immature Granulocytes % (auto) 0.6 %; Lymphocytes # (auto) 0.43 K/uL (1.20-3.40); Monocytes # (auto) 0.71 K/uL (0.11-0.59); Neutrophils # (auto) 12.89 K/uL (1.40-6.50); Neutrophils % (auto) 90.3 %; Toxic Granulation 1+; Toxic Vacuolation 1+
--- NOTE | 2024-06-27 13:48 | XRay Report ---
XR chest 1V portable CLINICAL HISTORY: SOB COMPARISON STUDY: 10/06/2023 FINDINGS: No significant interval changes have occurred. Prominent interstitial lung markings are red emonstrated bilaterally. Obscuration of the cardiac apex is once again present. No definite new or pr ogressive disease. No pneumothorax or pleural effusion. The heart and pulmonary vascularity are uncha nged. 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 Old right shoulder trauma is evident. IMPRESSION: Stable exam; no acute process identified. ACT 112: Negative or not required by law. Electronically signed by: Florencia Garcia M.D. 06/27/2024 1:46 PM
--- NOTE | 2024-06-27 14:42 | History & Physical Report ---
Date of Service June 27, 2024 Assessment & Plan (1) Nausea vomiting and diarrhea: (2) Elevated troponin: (3) Chronic respiratory failure with hypoxia: (4) CKD (chronic kidney disease) stage 3, GFR 30-59 ml/min: Plan This patient is an 83-year-old female with a history of ILD, chronic hypoxic respiratory failure on 6 LNC O2 at rest and 8L NC O2 with exertion, COPD, DOM, HLD, CKD stage III, anemia, depression, hypercalcemia, possible sarcoidosis, GERD, and obesity, who presents to the ER with nausea/vomiting/diarrhea which caused her increasing shortness of breath. She reports she woke up at 2:00 in the morning with lower abdominal cramping and had 4 watery nonbloody bowel movements. She also had 3 episodes of nausea and vomiting without hematemesis. In the ER, she was treated with IV Zofran and IV fluids and is already feeling much better. Her abdominal pain, nausea/vomiting/diarrhea is now resolved. Her ECG showed new T wave inversions and mild ST depressions in the inferior and anterolateral leads and her troponin was mildly elevated at 46. She reports having a cardiac stress test many years ago but has never had a cardiac catheterization and has not had any angina previously or currently. She was requiring 10 L O2 via oxygen mask initially but was weaned back to 6 L at the time of admission. She is being admitted for gastroenteritis and elevated troponin with abnormal ECG for further cardiac workup. #Nausea/vomiting/diarrhea-with multiple episodes of vomiting/diarrhea, nonbloody, Hemoglobin stable, with mild leukocytosis. Likely viral gastroenteritis and symptoms are already much improved with 1 dose of Zofran and a small amount of IV fluids. No fevers and abdominal pain is now resolved. No imaging of the abdomen was obtained and not needed at this time -Check stool PCR if give sample -Follow CBC, BMP, magnesium and replace electrolytes as needed -IV Zofran as needed for nausea -Okay to give clear liquids diet now and advance as tolerated in the morning -Hold home Lasix #Acute on chronic respiratory failure with hypoxia/COPD/restrictive lung disease/DOM-with the stress of vomiting diarrhea, she was having increasing shortness of breath and was requiring 10 L O2 but this is now resolved and she is back to her baseline of 6 L O2. CXR with nothing acute. -Continue home maintenance inhalers and nebulizers -Continue supplemental O2 at 6 LNC O2 at rest and 8L NC O2 with exertion -Continue home CPAP-can bring hers in #Elevated troponin/ECG changes-troponin mildly elevated on admission at 42 and repeat 2 hours later only slightly further increased at 47. However, her ECG does show diffuse T wave inversions and mild downsloping ST depressions in the inferior and anterolateral leads. Denies chest pains and has never had any cardiac issues. Likely myocardial demand ischemia due to strain from vomiting diarrhea and hypoxia. -Trend serial troponin -Check resting echocardiogram -Monitor on telemetry for arrhythmias #CKD stage III/hypercalcemia-creatinine around baseline at 1.0, GFR 53, calcium here is actually normal but previously thought to be secondary to hyper parathyroidism from renal disease. -Follow BMP -Okay to continue home lisinopril -Holding home Lasix and potassium while here with nausea/vomiting/diarrhea #Chronic anemia, normocytic-hemoglobin slightly elevated at normal range at 12 from her baseline of 11. Has received IV iron transfusions in the recent past. She had a positive Hemoccult stool in 06/2023 and she had an EGD and colonoscopy in 10/2023 which showed Schatzki ring which was dilated and diverticulosis without bleeding. She is on chronic NSAIDs for shoulder pain -Discontinue NSAIDs for now given increased risk of cardiovascular events, but would recommend Celebrex over diclofenac due to its GI protective effects if really needs anti-inflammatory in the future -Follow CBC #Depression-no acute issues -Continue home fluoxetine #HLD-no acute issues -Continue home statin #GERD-no acute issues -Continue home PPI DVT prophylaxis-heparin SQ, SCDs Disposition--admit on observation to medical floor with telemetry, expect short stay if cardiac issues rule out and continues to improve from gastroenteritis standpoint History of Present Illness Chief Complaint: Nausea/vomiting/diarrhea Primary Care Provider: Raheem Garibay, DO This patient is an 83-year-old female with a history of ILD, chronic hypoxic respiratory failure on 6 LNC O2 at rest and 8L NC O2 with exertion, COPD, DOM, HLD, CKD stage III, anemia, depression, hypercalcemia, possible sarcoidosis, GERD, and obesity, who presents to the ER with nausea/vomiting/diarrhea which caused her increasing shortness of breath. She reports she woke up at 2:00 in the morning with lower abdominal cramping and had 4 watery nonbloody bowel movements. She also had 3 episodes of nausea and vomiting without hematemesis. In the ER, she was treated with IV Zofran and IV fluids and is already feeling much better. Her abdominal pain, nausea/vomiting/diarrhea is now resolved. Her ECG showed new T wave inversions and mild ST depressions in the inferior and anterolateral leads and her troponin was mildly elevated at 46. She reports having a cardiac stress test many years ago but has never had a cardiac catheterization and has not had any angina previously or currently. She was requiring 10 L O2 via oxygen mask initially but was weaned back to 6 L at the time of admission. She is being admitted for gastroenteritis and elevated troponin with abnormal ECG for further cardiac workup. Allergies Allergy/AdvReac Type Severity Reaction Status Date / Time tiotropium Allergy Severe Spirivia Verified 06/27/24 14:59 [From Spiriva with Respimat, HandiHaler] pt hasn't had the handihaler metoclopramide Allergy Intermediate COULDN'T Verified 06/27/24 14:59 EAT PLASTIC AdvReac Mild IRRITATION Uncoded 06/27/24 14:59 ON CONTACT WITH OXYGEN APPLIED ON NOSE Home Medications Medication Instructions Recorded Confirmed Type acetaminophen 325 mg tablet 650 mg (2 x 325 mg) PO Q4H PRN 07/01/23 06/27/24 Rx pain #30 tabs diclofenac potassium 50 mg tablet 50 mg PO BID #180 tabs 07/30/23 06/27/24 Rx potassium chloride 10 mEq 10 meq PO BID #180 tabs 09/27/23 06/27/24 Rx tablet,extended release omeprazole 20 mg capsule,delayed 20 mg PO QAM #90 caps 09/30/23 06/27/24 Rx release oxygen concentrator #1 ea 10/11/23 02/25/24 Rx Portable Oxygen #1 ea 10/20/23 02/25/24 Rx Portable 02 Concentrator #1 ea 10/28/23 02/25/24 Rx Portable O2 concentrator #1 ea 10/28/23 02/25/24 Rx Oxygen Home #1 ea 11/10/23 02/25/24 Rx Incentive Spirometer #1 ea 11/30/23 02/25/24 Rx budesonide 0.25 mg/2 mL suspension 0.25 mg (2 mL) inhalation BID #60 11/30/23 06/27/24 Rx for nebulization mL nebulizers (Aeroneb Go Nebulizer) #1 ea 11/30/23 02/25/24 Rx atorvastatin 10 mg tablet 10 mg PO QPM #90 tabs 02/14/24 06/27/24 Rx lisinopril 10 mg tablet 10 mg PO QPM #90 tabs 02/14/24 06/27/24 Rx Oxygen Home #3 L 03/02/24 Rx fluoxetine 40 mg capsule (Prozac) 40 mg PO QAM #90 caps 04/10/24 06/27/24 Rx furosemide 40 mg tablet (Lasix) 40 mg PO QAM #90 tabs 04/10/24 06/27/24 Rx Portable Oxygen #1 ea 05/03/24 Rx ipratropium 0.5 mg-albuterol 3 mg 3 ml inhalation Q8H PRN shortness 05/19/24 06/27/24 Rx (2.5 mg base)/3 mL nebulization of breath or wheezing #180 mL soln albuterol sulfate 90 mcg/actuation 2 puff inhalation Q6H PRN 05/30/24 06/27/24 Rx aerosol inhaler shortness of breath or wheezing #8.5 grams tiotropium 2.5 mcg-olodaterol 2.5 2 puff inhalation QAM #4 grams 06/14/24 06/27/24 Rx mcg/actuation mist for inhalation (Stiolto Respimat) Auto Titrating CPAP #1 ea 06/26/24 Rx CPAP Supplies #1 ea 06/26/24 Rx docusate sodium 100 mg capsule 100 mg PO BID PRN Constipation 06/27/24 06/27/24 History Past Med/Surg History Problem List Elevated troponin Nausea vomiting and diarrhea Iron deficiency anemia Chronic respiratory failure with hypoxia COPD exacerbation (Acute) COPD (chronic obstructive pulmonary disease) Acute hypoxic respiratory failure (Acute) Acute blood loss anemia Sigmoid diverticulitis Class 2 obesity due to excess calories with body mass index (BMI) of 36.0 to 36.9 in adult Leg swelling (Acute) Restrictive lung disease Hypercalcemia (Chronic) CKD (chronic kidney disease) stage 3, GFR 30-59 ml/min (Chronic) HLD (hyperlipidemia) (Chronic) Elevated fasting glucose (Chronic) Alveolar emphysema of lung ILD (interstitial lung disease) (Chronic) Ex-smoker Snoring Exertional shortness of breath Abnormal PFTs (pulmonary function tests) GERD (gastroesophageal reflux disease) Depression (Chronic) Medical History Anemia Hx of acute respiratory failure 10/08/23, brought to [place] ER after her oxygen sats dropped into the 80's prior to her endoscopy with PSH, send home on supplemental oxygen. Hx of renal calculi no sx. Chronic kidney disease, stage 3 Restrictive lung disease ILD (interstitial lung disease) History of COVID-19 2020, not hosp; lungs are scarred and "slight" enlargement of heart GERD (gastroesophageal reflux disease) Exertional shortness of breath Alveolar emphysema of lung COPD (chronic obstructive pulmonary disease) f/u dr. sepulveda, [place] [facility]; PFT 11/07 or 11/08 On home oxygen therapy 3L with activity and at HS. Depression Migraine Hypertension Hyperlipidemia Spastic esophagus Surgical History Hx of foot surgery bone spur removed from bilat. feet S/P dilatation of esophageal stricture History of bilateral tubal ligation History of esophagogastroduodenoscopy (EGD) History of colonoscopy History of tooth extraction Hx of eye surgery rt eye laser History of cataract surgery rt/lt Bone spur RT/LEFT; removed w/sx. History of repair of rotator cuff left History of carpal tunnel release rt History of total knee replacement rt History of arthroscopy rt knee History of total abdominal hysterectomy and bilateral salpingo-oophorectomy Family History Other Hypertension Denies family history of Tuberculosis Heart disease Allergies Emphysema of lung Lung disease Cancer Asthma Social History Smoking Status: Former smoker Tobacco Type: Cigarettes Age Started Using Tobacco: 14; Age Quit Using Tobacco: 56; packs per day: 1; Cigarettes Per Day: QUIT OVER 20 YEARS AGO; Second Hand Exposure: Yes (hx as child); Do You Dip or Chew Tobacco: No; Hx Alcohol Use: Yes Alcohol type: beer Hx Substance Use: No Preferred Language: Guatemalan Communication Ability: Effective Visual Impairment: No Limitations Ophthalmic Medical Technician Required: No Beliefs That Will Affect Care: None marital status: Current Living Situation: Spouse current occupational status: retired Feels Safe at Home: Yes Diet: low carbohydrate caffeine: Yes Dental Care, Regularly: No Physical Activity Frequency: Does not Exercise Seatbelt Use: always Assistive Devices: Denture - Upper, Denture - Lower and Oxygen - at Night Review of Systems Review of Systems: All systems reviewed & are unremarkable except as noted in HPI & below (Except chronic right shoulder pain) Physical Exam Constitutional: WD/WN, vitals as above Eyes: PERRL, conjunctivae normal, anicteric sclerae Respiratory: normal respiratory effort, lungs clear to auscultation Cardiovascular: RRR, no murmur, no edema Gastrointestinal (Abdomen): normal bowel sounds, soft, nontender, no hepatosplenomegaly Musculoskeletal: Right shoulder with surgical incisional scar present, positive TTP over posterior shoulder and trapezius Neurologic: PERRL, EOMI, accommodation nl, no face palsy, no dysarthria Psychiatric: A+Ox3, euthymic affect Results & Data Results & Data Vital Signs (Past 12 Hours) Vital Signs Temp Pulse Resp BP Pulse Ox O2 Del Method O2 Flow Rate 06/27/24 13:31 101 H 15 126/73 95 Oxymask 10 06/27/24 13:00 99 H 23 118/59 L 94 Oxymask 10 06/27/24 12:53 95 H 06/27/24 12:34 36.6 C 100 H 24 103/81 97 Oxymask 10 Laboratory Results CBC, BMP, LFTs, troponin reviewed Diagnostic Findings Chest x-ray image personally reviewed by me and agree with the following report Chest X-Ray 06/27/24 13:21 XR chest 1V portable CLINICAL HISTORY: SOB COMPARISON STUDY: 10/06/2023 FINDINGS: No significant interval changes have occurred. Prominent interstitial lung markings are redemonstrated bilaterally. Obscuration of the cardiac apex is once again present. No definite new or progressive disease. No pneumothorax or pleural effusion. The heart and pulmonary vascularity are unchanged. 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 Old right shoulder trauma is evident. IMPRESSION: Stable exam; no acute process identified. ACT 112: Negative or not required by law. Electronically signed by: Florencia Garcia M.D. 06/27/2024 1:46 PM ECG Additional Comments: ECG on 06/27/2024 at 1236 with normal sinus rhythm, rate 100, ST depression and T wave inversion in inferior and anterolateral leads change from previous Code Status & VTE Plan Code Status DNR/DNI VTE Prophylaxis Plan VTE Prophylaxis will be ordered: Yes PG Care Time/CCT Total # of Minutes Spent Total Time Spent with Patient: Total time spent is greater than 50% in coordination of care (as documented) at patient's floor/unit and/or counseling patient: Coding Level of Care Code 31199 INT INP/OBS CARE 75MIN Diagnoses Nausea vomiting and diarrhea R11.2; R19.7 Elevated troponin R79.89 Chronic respiratory failure with hypoxia J96.11 CKD (chronic kidney disease) stage 3, GFR 30-59 ml/min N18.30
[2024-06-27 15:03] LABS: Adenovirus PCR Not Detected (NotDetected); Bordetella parapertussis PCR Not Detected (NotDetected); Bordetella pertussis PCR Not Detected (NotDetected); Chlamydia pneumoniae PCR Not Detected (NotDetected); Coronavirus 229E PCR Not Detected (NotDetected); Coronavirus CoV-2 (COVID19)PCR Not Detected (NotDetected); Coronavirus HKU1 PCR Not Detected (NotDetected); Coronavirus NL63 PCR Not Detected (NotDetected); Coronavirus OC43PCR Not Detected (NotDetected); Human Metapneumovirus PCR Not Detected (NotDetected); Influenza A PCR Not Detected (NotDetected); Influenza B PCR Not Detected (NotDetected); Mycoplasma pneumoniae PCR Not Detected (NotDetected); Parainfluenza Virus 1 PCR Not Detected (NotDetected); Parainfluenza Virus 2 PCR Not Detected (NotDetected); Parainfluenza Virus 3 PCR Not Detected (NotDetected); Parainfluenza Virus 4 PCR Not Detected (NotDetected); Respiratory Syncytial VirusPCR Not Detected (NotDetected); Rhinovirus/Enterovirus PCR Not Detected (NotDetected)
[2024-06-27] MEDS: ACETAMINOPHEN 500 MG TAB PO STA (15:39)
[2024-06-27] MEDS ORDERED: ALBUT/IPRATROP 3MG/0.5MG NEB 3 ML VIAL INH PRN (17:16)
[2024-06-27] MEDS ORDERED: ONDANSETRON INJ 2 MG/ML 2 ML VIAL IV PRN (17:16)
[2024-06-27] MEDS ORDERED: ALBUTEROL HFA 8 GM INHALER INH PRN (17:16)
[2024-06-27] MEDS: BUDESONIDE 0.25 MG/2 ML VIAL (PULMICORT) INH SCH (19:30)
[2024-06-27] MEDS: ATORVASTATIN 10 MG TAB PO SCH (20:11)
[2024-06-27] MEDS: lisinopril 10 MG TAB PO SCH (20:11)
[2024-06-27] MEDS: HEPARIN SOD 5,000 UNIT/0.5 ML VIAL SQ SCH (20:12)
[2024-06-27] MEDS: COUGH DROP (SUGAR FREE) LOZ 24 LOZ/1 BOX BUCCAL STA (21:21)
[2024-06-27] MEDS: ACETAMINOPHEN 325 MG TAB PO PRN (23:06)
--- NOTE | 2024-06-28 05:58 | Electrocardiogram Report ---
Test Reason : Blood Pressure : */* mmHG Vent. Rate : 100 BPM Atrial Rate : 100 BPM P-R Int : 148 ms QRS Dur : 88 ms QT Int : 362 ms P-R-T Axes : 55 21 -27 degrees QTcB Int : 466 ms Normal sinus rhythm Abnormal ECG When compared with ECG of 06-Oct-2023 12:04, T wave inversion now evident in Inferior leads T wave inversion now evident in Anterior leads Confirmed by Alonzo Raymond ([id number]) on 06/28/2024 5:58:32 AM Referred By: Confirmed By: Alonzo Raymond
[2024-06-28 06:35] LABS: Basophils # (auto) 0.02 K/uL (0.00-0.20); Basophils % (auto) 0.2 %; Eosinophils # (auto) 0.03 K/uL (0.00-0.50); Eosinophils % (auto) 0.4 %; Hematocrit (blood only) 35.7 % (37.0-47.0); Hemoglobin 11.7 g/dl (12.0-16.0); Immature Granulocytes # (auto) 0.05 K/uL (0.01-0.20); Immature Granulocytes % (auto) 0.6 %; Lymphocytes % (auto) 6.2 %; Mean Corpuscular Hemoglobin 30.3 pg (25.0-34.0); Mean Corpuscular Hgb Conc 32.8 g/dL (32.0-36.0); Mean Corpuscular Volume 92.5 fL (80.0-100.0); Mean Platelet Volume 12.5 fL (9.4-12.4); Monocytes # (auto) 0.62 K/uL (0.11-0.59); Monocytes % (auto) 7.6 %; Neutrophils # (auto) 6.91 K/uL (1.40-6.50); Platelet Count 225 K/uL (130-400); RDW Coefficient of Variation 13.2 % (11.5-14.5); RDW Standard Deviation 44.8 fL (36.4-46.3); Red Blood Count 3.86 M/uL (4.20-5.40); White Blood Count 8.13 K/ul (4.8-10.8)
[2024-06-28 07:03] LABS: BUN Creatinine Ratio 16.7 (10-20); Calcium 9.5 mg/dl (8.6-10.3); Creatinine Clr Calc Pharmacy 47.7 ml/min; Magnesium 1.7 mg/dl (1.7-2.4); Potassium 4.1 mmol/L (3.5-5.1)
[2024-06-28 07:39] VITALS: RESP 20
[2024-06-28] MEDS: UMECLIDINIUM/VILANTEROL 62.5/25MCG 7 PUFFS/INHALER INH SCH (08:06)
[2024-06-28] MEDS: PANTOprazole 40 MG TAB PO SCH (08:06)
[2024-06-28] MEDS: FLUoxetine HCL 20 MG CAP PO SCH (08:06)
--- NOTE | 2024-06-28 09:59 | Discharge Summary ---
Discharge Summary Date of Service June 28, 2024 Principal Dx & Hospital Course #1 = Principal Diagnosis (1) Nausea vomiting and diarrhea: (2) Elevated troponin: (3) Chronic respiratory failure with hypoxia: (4) CKD (chronic kidney disease) stage 3, GFR 30-59 ml/min: Plan This patient is an 83-year-old female with a history of ILD, chronic hypoxic respiratory failure on 6 LNC O2 at rest and 8L NC O2 with exertion, COPD, DOM, HLD, CKD stage III, anemia, depression, hypercalcemia, possible sarcoidosis, GERD, and obesity, who presents to the ER with nausea/vomiting/diarrhea which caused her increasing shortness of breath. She reports she woke up at 2:00 in the morning with lower abdominal cramping and had 4 watery nonbloody bowel movements. She also had 3 episodes of nausea and vomiting without hematemesis. In the ER, she was treated with IV Zofran and IV fluids and is already feeling much better. Her abdominal pain, nausea/vomiting/diarrhea is now resolved. Her ECG showed new T wave inversions and mild ST depressions in the inferior and anterolateral leads and her troponin was mildly elevated at 46. She reports having a cardiac stress test many years ago but has never had a cardiac catheterization and has not had any angina previously or currently. She was requiring 10 L O2 via oxygen mask initially but was weaned back to 6 L at the time of admission. She is being admitted for gastroenteritis and elevated troponin with abnormal ECG for further cardiac workup. #Nausea/vomiting/diarrhea-with multiple episodes of vomiting/diarrhea, nonbloody, Hemoglobin stable, with mild leukocytosis. Likely viral gastroenteritis and symptoms are already much improved with 1 dose of Zofran and a small amount of IV fluids. No fevers and abdominal pain is now resolved. No imaging of the abdomen was obtained and not needed at this time -Check stool PCR if give sample -Follow CBC, BMP, magnesium and replace electrolytes as needed -IV Zofran as needed for nausea -Okay to give clear liquids diet now and advance as tolerated in the morning -Hold home Lasix #Acute on chronic respiratory failure with hypoxia/COPD/restrictive lung disease/DOM-with the stress of vomiting diarrhea, she was having increasing shortness of breath and was requiring 10 L O2 but this is now resolved and she is back to her baseline of 6 L O2. CXR with nothing acute. -Continue home maintenance inhalers and nebulizers -Continue supplemental O2 at 6 LNC O2 at rest and 8L NC O2 with exertion -Continue home CPAP-can bring hers in #Elevated troponin/ECG changes-troponin mildly elevated on admission at 42 and repeat 2 hours later only slightly further increased at 47. However, her ECG does show diffuse T wave inversions and mild downsloping ST depressions in the inferior and anterolateral leads. Denies chest pains and has never had any cardiac issues. Likely myocardial demand ischemia due to strain from vomiting diarrhea and hypoxia. -Trend serial troponin -Check resting echocardiogram -Monitor on telemetry for arrhythmias #CKD stage III/hypercalcemia-creatinine around baseline at 1.0, GFR 53, calcium here is actually normal but previously thought to be secondary to hyper parathyroidism from renal disease. -Follow BMP -Okay to continue home lisinopril -Holding home Lasix and potassium while here with nausea/vomiting/diarrhea #Chronic anemia, normocytic-hemoglobin slightly elevated at normal range at 12 from her baseline of 11. Has received IV iron transfusions in the recent past. She had a positive Hemoccult stool in 06/2023 and she had an EGD and colonoscopy in 10/2023 which showed Schatzki ring which was dilated and diverticulosis without bleeding. She is on chronic NSAIDs for shoulder pain -Discontinue NSAIDs for now given increased risk of cardiovascular events, but would recommend Celebrex over diclofenac due to its GI protective effects if really needs anti-inflammatory in the future -Follow CBC #Depression-no acute issues -Continue home fluoxetine #HLD-no acute issues -Continue home statin #GERD-no acute issues -Continue home PPI DVT prophylaxis-heparin SQ, SCDs Disposition--admit on observation to medical floor with telemetry, expect short stay if cardiac issues rule out and continues to improve from gastroenteritis standpoint Admission HPI Per Admitting Provider This patient is an 83-year-old female with a history of ILD, chronic hypoxic respiratory failure on 6 LNC O2 at rest and 8L NC O2 with exertion, COPD, DOM, HLD, CKD stage III, anemia, depression, hypercalcemia, possible sarcoidosis, GERD, and obesity, who presents to the ER with nausea/vomiting/diarrhea which caused her increasing shortness of breath. She reports she woke up at 2:00 in the morning with lower abdominal cramping and had 4 watery nonbloody bowel movements. She also had 3 episodes of nausea and vomiting without hematemesis. In the ER, she was treated with IV Zofran and IV fluids and is already feeling much better. Her abdominal pain, nausea/vomiting/diarrhea is now resolved. Her ECG showed new T wave inversions and mild ST depressions in the inferior and anterolateral leads and her troponin was mildly elevated at 46. She reports having a cardiac stress test many years ago but has never had a cardiac catheterization and has not had any angina previously or currently. She was requiring 10 L O2 via oxygen mask initially but was weaned back to 6 L at the time of admission. She is being admitted for gastroenteritis and elevated troponin with abnormal ECG for further cardiac workup. Discharge Exam GENERAL APPEARANCE NAD, activity normal for age, well developed/ well nourished, no cyanosis, pallor, or diaphoresis. EYES lids/conjunctiva normal. EARS/NOSE/THROAT Mucous membranes moist, nares normal, lips/teeth normal uvula midline without oral pharyngeal erythema, exudate or swelling TMs normal bilaterally. No lymphangitis/lymphedema. HEAD/NECK normocephalic atraumatic, no facial trauma, neck is supple. RESPIRATORY respiratory effort normal, speaks in full sentences, no tripod position, no accessory muscle use. Lungs clear to auscultation without rhonchi, wheezes, rales CARDIAC Regular rate and rhythm, no edema. ABDOMINAL Soft, ND/NT. No evidence of fluid wave. No pulsatile masses on exam, rebound tenderness, Steele sign or pain over Mcburney's point. MUSCLES/EXTREMITIES No abnormal range of motion, no swelling. SKIN Warm, pink and dry. No rashes, dermatoses, petechiae or lesions. NEUROLOGICAL Speech is clear and appropriate. Normal level of consciousness. Gait and coordination are normal. 5/5 strength in all extremities. PSYCH Normal mood and affect. Judgement/competence is appropriate Discharge Plan Discharge Items Patient Disposition: Home - Self-Care Reason For Visit: ELEVATED TROPONIN,ABNORMAL ECG Discharge Diagnosis: Viral gastroenteritis, demand ischemia Activity: Resume your previous activity Non-emergency contact: Primary Care Provider Call non-emergency contact if: you have any medication questions Follow-up/Referrals: Raheem Garibay DO [Primary Care Provider] - Diet: Regular Addtl Attending Provider Instructions: Follow up with PMD in 2 weeks Pending Studies at Discharge: No Stand-Alone Forms: [facility], Smoking Cessation Medications and DC Order Prescriptions: Continued potassium chloride 10 mEq tablet extended release 10 meq PO BID Qty: 180 3RF omeprazole 20 mg capsule,delayed release(DR/EC) 20 mg PO QAM Qty: 90 3RF (DME) oxygen concentrator See Rx Instructions .Route .MEDSUPPLY Qty: 1 0RF Rx Instructions: 3L continuously (DME) Portable Oxygen Misc See Rx Instructions .Route Qty: 1 0RF Hold Instructions: Home Medication placed on hold at Doctor's office Rx Instructions: As directed - 3 L per minute (DME) Portable O2 concentrator See Rx Instructions .Route .MEDSUPPLY Qty: 1 0RF Rx Instructions: 3 Liters per minute Nasal cannula; (DME) Portable 02 Concentrator See Rx Instructions .Route .MEDSUPPLY Qty: 1 0RF Rx Instructions: 3L per minute continuously via nasal canula (DME) Oxygen Home Liters Per Minute See Rx Instructions .Route Qty: 1 0RF Rx Instructions: Humidification for oxygen atorvastatin 10 mg tablet 10 mg PO QPM Qty: 90 3RF lisinopril 10 mg tablet 10 mg PO QPM Qty: 90 3RF (DME) Oxygen Home Liters Per Minute See Rx Instructions .Route Qty: 3 0RF Rx Instructions: 8L continuous via nasal cannula on exertion via nasal cannula. LOS 99 fluoxetine [Prozac] 40 mg capsule 40 mg PO QAM Qty: 90 3RF furosemide [Lasix] 40 mg tablet 40 mg PO QAM Qty: 90 3RF (DME) Portable Oxygen Misc See Rx Instructions .MEDSUPPLY Qty: 1 0RF Rx Instructions: Oxygen 5 liters via nasal cannula on exertion with POC. EKATERINA 99-evaluate for settings 2-5lpm to keep O2 Sat above 88% ipratropium-albuterol 0.5 mg-3 mg(2.5 mg base)/3 mL solution for nebulization 3 ml inhalation Q8H PRN (Reason: shortness of breath or wheezing) Qty: 180 3RF albuterol sulfate 90 mcg/actuation HFA aerosol inhaler 2 puff inhalation Q6H PRN (Reason: shortness of breath or wheezing) Qty: 8.5 3RF Stiolto Respimat 2.5-2.5 mcg/actuation mist 2 puff inhalation QAM Qty: 4 3RF (DME) CPAP Supplies Misc See Rx Instructions .MEDSUPPLY Qty: 1 0RF Rx Instructions: CPAP supplies, mask, headgear, filters, tubing, water chamber. G47.33 (DME) Auto Titrating CPAP Misc See Rx Instructions .MEDSUPPLY Qty: 1 0RF Rx Instructions: Auto PAP with 5 - 15 cm H20 with 3 L oxygen bled into it. Lifetime usage. G47.33 diclofenac potassium 50 mg tablet 50 mg PO BID Qty: 180 3RF (DME) nebulizers [Aeroneb Go Nebulizer] Misc See Rx Instructions .MEDSUPPLY Qty: 1 0RF Rx Instructions: With tubing and supplies. J44.9. J45.9. (DME) Incentive Spirometer Misc See Rx Instructions .MEDSUPPLY Qty: 1 0RF Rx Instructions: As directed budesonide 0.25 mg/2 mL suspension for nebulization 0.25 mg inhalation BID Qty: 60 6RF acetaminophen 325 mg Tablet 650 mg PO Q4H PRN (Reason: pain) Qty: 30 0RF Rx Instructions: OTC docusate sodium 100 mg capsule 100 mg PO BID PRN (Reason: Constipation) Discharge Orders: Discharge Order (Routine); Ordered 06/28/24 Ordered By: Ton Cruz Admission Data Admit Date/Time: 06/27/24 15:37 Attending Provider: Ton Cruz Admit Provider: Abbie Naranjo Primary Care Provider: Raheem Garibay Other Providers: Abbie Naranjo Hospital Stay Data Consultations 06/27/24 14:10 ED Decision to Admit Stat Pending Results Patient Have Any Pending Studies at Discharge: No Discharge Instructions Given to Patient (Per Discharging Provider) Follow up with PMD in 2 weeks Total Time Total Time Spent Total Time Spent (In Minutes): 50 Coding Level of Care Code 70896 INP/OBS DISCH >30 MIN Diagnoses Nausea vomiting and diarrhea R11.2; R19.7 Elevated troponin R79.89 Chronic respiratory failure with hypoxia J96.11 CKD (chronic kidney disease) stage 3, GFR 30-59 ml/min N18.30
--- NOTE | 2024-06-28 10:18 | XCELERA ---
[id number] [email or web address]\[id number]}___[id number]
[2024-06-28] MEDS: OPTIRAY 320 125ml IV ONE (11:16)
--- NOTE | 2024-06-28 12:08 | CT Scan Report ---
CT ANGIOGRAPHY OF THE CHEST, PULMONARY EMBOLUS PROTOCOL CLINICAL HISTORY: Shortness of breath. Evaluate for pulmonary embolus. COMPARISON STUDY: Chest radiograph June 27, 2024. Chest CT October 06, 2023. TECHNIQUE: Following IV administration of 115 mL of Optiray, helical axial images of the chest were o btained utilizing the pulmonary embolus protocol. Maximal intensity projections and sagittal and cor onal reformats were viewed on an independent 3D workstation. IV contrast was administered without co mplication. Automated exposure control was utilized for the study. A dose lowering technique was ut ilized adhering to the principles of ALARA. CT DOSE: 820.21 mGy.cm FINDINGS: No pulmonary emboli are identified although this exam is moderately compromised by respira tory motion. Therefore, segmental and subsegmental pulmonary arteries are suboptimally assessed. The heart is mildly enlarged. Right heart chambers are dilated with straightening of the interventricular septum. Mildly enlarged mediastinal and bilateral hilar lymph nodes are unchanged. Several partially calcified lymph nodes are noted. These nodes are benign. There is no pneumothorax or pleural effusio n. Lungs are suboptimally assessed due to respiratory motion. Subpleural reticulation and groundglass opacities were also shown on prior CT. There may be early honeycombing within the left upper lobe. A dditional patchy groundglass opacities within the lungs are new since prior CT. There is no pneumotho rax or pleural effusion. IMPRESSION: 1. No pulmonary emboli identified although exam moderately compromised by respiratory motion artifact . Segmental and subsegmental pulmonary arteries suboptimally assessed. 2. Mild cardiomegaly. Dilatation of the right heart chambers and straightening of the interventricula r septum suggests elevated right heart pressures. 3. Evidence for interstitial lung disease, as shown on CT of October 06, 2023. A few patchy groundglass opacities which are new since prior exam may represent a superimposed infectious process or progressi on of interstitial lung disease. ACT 112: Negative or not required by law. Electronically signed by: Les Rosado M.D. 06/28/2024 12:07 PM
[2024-06-28 12:32] VITALS: BP 132/79; PULSE 98; TEMP 97.5; O2SAT 94
--- NOTE | 2024-06-28 15:12 | Communication Note ---
Date of Service: June 28, 2024 Cardiology informed that echo showed right ventricular strain, recommended r/o PE. Pt initially presented with acute respiratory failure on admission, now at baseline. CTA chest ordered to r/o PE. Results are negative. All results reviewed with patient. She acknowledges and is clear for discharge home.
--- NOTE | 2024-06-29 06:42 | Electrocardiogram Report ---
Test Reason : Blood Pressure : */* mmHG Vent. Rate : 100 BPM Atrial Rate : 100 BPM P-R Int : 144 ms QRS Dur : 84 ms QT Int : 372 ms P-R-T Axes : 58 41 -25 degrees QTcB Int : 479 ms Sinus rhythm with Premature atrial complexes Abnormal ECG When compared with ECG of 27-Jun-2024 12:36, Premature atrial complexes are now Present Confirmed by Alonzo Raymond ([id number]) on 06/29/2024 6:42:05 AM Referred By: REFERRED SELF Confirmed By: Alonzo Raymond
== END 2024-06-28 15:26 | disposition home or self-care (01) ==
LOC: ED 12:26 → 2S 12:26 → SUATTDRO 15:37 → 2S 16:36